=== PATIENT | female | born 1955 | race Caucasian/White ===

== ENCOUNTER → 2016-11-25 | Outpatient (CLI) | payer BC ==
[2016-11-25 17:13] LABS: Basophils % (A) 0 %; CH 30.5; CHCM 33.9; Eosinophils # (A) 0.1 k/uL (0-0.7); Eosinophils % (A) 1 %; HDW 2.91; HGB 13.2 gm/dL (11.4-16.0); Luc # (Auto) 0.19; Luc % (Auto) 3; Lymphocytes # (A) 2.2 k/uL (1.0-4.8); Lymphocytes % (A) 38 %; MCH 29.8 pg (25.0-35.0); MCV 90.4 fL (80.0-100.0); Mean Platelet Volume 7.5; Monocytes # (A) 0.3 k/uL (0-1.0); Monocytes % (A) 6 %; Neutrophils # (A) 3.1 k/uL (1.3-7.7); Neutrophils % (A) 52 %; RBC 4.42 m/uL (3.80-5.40); RDW 13.3 % (11.5-15.5); WBC 5.9 k/uL (3.8-10.6); WBC (Perox) 6.37
[2016-11-25 17:32] LABS: Potassium 4.4 mmol/L (3.5-5.1)
== END | disposition home or self-care (01) ==
LOC: LABWHC1 16:52
PROVIDERS: ATTEND Orthopaedic Surgery
DX: Z01.812 Encounter for preprocedural laboratory examination (principal); M23.91 Unspecified internal derangement of right knee
CPT/HCPCS: 36415; 80051; 85025

== ENCOUNTER 2016-12-04 08:28 | Day surgery (SDC) | payer BC ==
[2016-11-30 15:14] VITALS: BMI 35.2
--- NOTE | 2016-12-03 13:03 | HP ---
DATE OF ADMISSION: CHIEF COMPLAINT: Right knee pain. 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 She notes swelling, popping, and giving way. She is having night symptoms. She did taken medications with only partial temporary relief. PAST MEDICAL HISTORY: Significant for reflux disease, hypertension. PAST SURGICAL HISTORY: Significant for previous knee surgery, breast surgery, hysterectomy and colon surgery. CURRENT MEDICATIONS: 1. Atenolol. 2. Lisinopril. 3. Prilosec. 4. Simvastatin. 5. Tylenol. 6. Tamoxifen. She notes allergies to IODINE DYE. FAMILY HISTORY: Significant for heart disease and cancer. SOCIAL HISTORY: Significant for previous tobacco use; however, she quit in 1996. A 16-point review of systems otherwise reviewed and is noncontributory. On examination, the patient is approximately 5 foot 4, 204 pounds of endomorphic habitus. HEENT exam is nonfocal. Neck is supple. She has painless passive motion of her right hip. Straight leg raise is negative. Active motion of the right knee, -10 to 110 degrees of flexion. She has a large effusion. She is tender about the medial joint line. Collaterals are stable, Petar is negative, Elliott's elicits medial pain. Her distal neurovascular exam appears be intact in the right lower extremity. MRI for the right knee from 07/14/2016 shows a posterior medial meniscal tear in addition to questionable lateral meniscal body tear. IMPRESSION: 1. Right knee internal derangement with symptomatic medial meniscal tear. 2. Increased body mass index. RECOMMENDATIONS: I talked to the patient at length regarding her treatment options. She is having significant pain and mechanical symptoms that limit her. After thorough discussion, she opts to proceed with surgery. We will plan to proceed with arthroscopic evaluation with possible partial medial and lateral meniscectomy. We will likely perform that as an outpatient procedure. Risks and benefits are discussed at length in layman's terms.
[~2016-12-04 08:28] MED LIST: DEXAMETHASONE SOD PHOSPHATE 10 MG/ML 1 ML VIAL IV ONE; LACTATED RINGERS 1,000 ML IV SCH; MIDAZOLAM 2 MG/2 ML VIAL IV PRN; ONDANSETRON 4 MG/2 ML VIAL IVP ONE; SCOPOLAMINE 1.5MG/72HR PATCH TRANSDERM ONE; ceFAZolin 2 GM in SODIUM CHLORIDE 0.9% 100 ML IVPB ONE
[2016-12-04] MEDS ORDERED: MIDAZOLAM 2 MG/2 ML VIAL ONE (10:01)
[2016-12-04] MEDS ORDERED: fentaNYL (PF) 50 MCG/ML 2 ML AMP ONE (10:01)
[2016-12-04] MEDS ORDERED: LACTATED RINGERS 1,000 ML IV ONE (10:01)
[2016-12-04] MEDS ORDERED: GLYCOPYRROLATE 0.2 MG/ML 2 ML VIAL ONE (10:01)
[2016-12-04] MEDS ORDERED: ROCURONIUM BROMIDE 10 MG/ML 10 ML VIAL IV ONE (10:01)
[2016-12-04] MEDS ORDERED: SUCCINYLCHOLINE CHLORIDE 100 MG/5 ML SYR IV ONE (10:01)
[2016-12-04] MEDS ORDERED: NEOSTIGMINE 1 MG/ML 10 ML VIAL ONE (10:01)
[2016-12-04] MEDS ORDERED: LIDOCAINE 1% INJ 10MG/ML (20 ML MDV) ONE (10:01)
[2016-12-04] MEDS ORDERED: PROPOFOL 10 MG/ML 20 ML VIAL IV ONE (10:01)
--- NOTE | 2016-12-04 10:49 | P.OP ---
Date of Procedure: 12/04/16 Preoperative Diagnosis: Right knee internal derangement Postoperative Diagnosis: Right knee posterior medial meniscal tear/middle one third lateral meniscal tear /grade 3 chondral injury distal lateral portion lateral femoral condyle/grade 3 chondral injury inferior patellar pole Procedure(s) Performed: Right knee arthroscopic partial medial meniscectomy/partial lateral meniscectomy /lateral femoral chondrectomy/patellar chondroplasty Anesthesia: ARACELIS Surgeon: Augustine Arcos Estimated Blood Loss (ml): 10 Pathology: none sent Condition: stable Disposition: PACU Indications for Procedure: The patient's a 61-year-old female who presents with progressive right knee pain and mechanical symptoms despite conservative measures. A discussion of the risks and benefits of operative intervention versus continued conservative measures was made with patient. She opted to proceed with surgery. Operative risks to include infection, neurovascular injury, development of blood clots, possible incomplete resolution of symptoms, possible worsening symptoms and need for subsequent procedures was discussed. Informed consent was obtained. Operative Findings: As below Description of Procedure: The patient was brought to the operating room and after induction of general anesthesia, I examined the right knee. Collaterals were stable, Petar was negative, and posterior drawer was negative. The right lower extremity was prepped and draped in normal fashion. A superior lateral portal was made through a 3 mm skin incision superior and lateral to the patella. This was used for outflow. A moderate effusion was encountered. A lateral portal was made through a 5 mm vertical skin incision lateral to the patellar tendon above the joint line. Diagnostic arthroscopy was performed. A medial portal was made through a similar incision medial to the patellar tendon above the joint line. On inspection the medial compartment, she was noted have an oblique tear involving the posterior most aspect of the medial meniscus in the white-white junction. This was debrided back to stable base with straight baskets. The edges were contoured. The remaining medial meniscus was stable and intact. Minimal degenerative changes involving medial compartment were noted. On inspection of the notch, the anterior cruciate ligament appeared to be intact. On inspection of the lateral compartment, a radial tear involving the middle one third of the lateral meniscus in the white-white junction. This was debrided back to stable base with straight baskets. The edges were contoured. A grade 3 chondral injury involving the distal lateral portion of the lateral femoral condyle was noted. This measured approximately 5 x 6 mm. There was a loose chondral flap was debrided back to stable base with a motorized shaver. On inspection of the patellofemoral articulation, there was a grade 3 chondral injury involving the inferior pole. There was a loose chondral flap debrided back to stable base with a motorized shaver. The gutters were clear debris. The knee was then thoroughly irrigated. The portals were closed with Steri- Strips. A sterile dressing was applied in addition to a compression stocking. The patient was awoken from general anesthesia and transferred to recovery room in good condition. Blood loss was estimated at 10 mL. No complications were incurred.
[2016-12-04 10:53] VITALS: TEMP 97
[2016-12-04] MEDS: HYDROmorphone 1 MG/ML 1 ML SYRINGE IVP PRN ×4 (10:55→11:15)
[2016-12-04] MEDS ORDERED: KETOROLAC 30 MG/ML 1 ML VIAL IVP ONE (11:09)
[2016-12-04] MEDS ORDERED: HYDROcodone/APAP 5-325MG 1 EACH TAB PO ONE (12:14)
[2016-12-04 13:00] VITALS: RESP 16
[2016-12-04 13:01] VITALS: BP 111/60; PULSE 83
== END 2016-12-04 13:29 | disposition home or self-care (01) ==
LOC: OR 08:28
PROVIDERS: ATTEND Orthopaedic Surgery
DX: S83.281A Other tear of lateral meniscus, current injury, right knee, initial encounter (principal); S83.241A Other tear of medial meniscus, current injury, right knee, initial encounter; M94.8X6 Other specified disorders of cartilage, lower leg; K21.9 Gastro-esophageal reflux disease without esophagitis; I10 Essential (primary) hypertension; Z91.041 Radiographic dye allergy status; Z85.3 Personal history of malignant neoplasm of breast; Z87.891 Personal history of nicotine dependence; X58.XXXA Exposure to other specified factors, initial encounter; Z79.899 Other long term (current) drug therapy
CPT/HCPCS: 29880; J2250; J1100; J2710; J0690; J2405; J2001; J3010; J1885; J1170; J0330; J2704

== ENCOUNTER → 2017-04-23 | Day surgery (SDC) | payer BC ==
[2017-04-21 14:25] VITALS: BMI 34.8
[~2017-04-23] MED LIST changes: -DEXAMETHASONE SOD PHOSPHATE 10 MG/ML 1 ML VIAL IV ONE; +LIDOCAINE 1% 20 ML VIAL (10MG/ML) FOR IV START INTRADERMA PRN; +LIDOCAINE 1% INJ 10MG/ML (20 ML MDV) ONE; -MIDAZOLAM 2 MG/2 ML VIAL IV PRN; -ONDANSETRON 4 MG/2 ML VIAL IVP ONE; +PROPOFOL 10 MG/ML 20 ML VIAL IV ONE; -SCOPOLAMINE 1.5MG/72HR PATCH TRANSDERM ONE; -ceFAZolin 2 GM in SODIUM CHLORIDE 0.9% 100 ML IVPB ONE
[2017-04-23 09:19] VITALS: RESP 16; TEMP 98.2
--- NOTE | 2017-04-23 11:09 | P.GSHP ---
History of Present Illness H&P Date: 04/23/17 Chief Complaint: GERD, screening colonoscopy This a 7-year-old female who presents today for EGD and screening colonoscopy. Patient has had long-standing problems reflux esophagitis. She has a known history of a hiatal hernia. - Constitutional Constitutional: Reports as per HPI Past Medical History Past Medical History: Cancer, GERD/Reflux, Hyperlipidemia, Hypertension, Musculoskeletal Disorder, Sleep Apnea/CPAP/BIPAP Additional Past Medical History / Comment(s): Colon, Breast CA, Lumpectomy Lt Breast. RT kidney NON-FUNCTIONING. NO TX FOR SLEEP APNEA. SMALL BUMP FROM OLD TICK BITE RT HAND 1 MO AGO. History of Any Multi-Drug Resistant Organisms: None Reported Past Surgical History: Breast Surgery, Hysterectomy, Orthopedic Surgery Additional Past Surgical History / Comment(s): LT Lumpectomy. RT KNEE SCOPE. COLONOSCOPY, EGD. Past Anesthesia/Blood Transfusion Reactions: Motion Sickness Past Psychological History: No Psychological Hx Reported Smoking Status: Former smoker Past Alcohol Use History: None Reported Additional Past Alcohol Use History / Comment(s): SMOKED 20 YEARS, < 1 PPD, QUIT 1996. Past Drug Use History: None Reported - Past Family History Sister(s) Family Medical History: Cancer Brother(s) Family Medical History: Cancer Father Family Medical History: Coronary Artery Disease (CAD), CVA/TIA Medications and Allergies Home Medications Medication Instructions Recorded Confirmed Type Atenolol 50 mg PO HS 10/17/16 04/23/17 History Pantoprazole Sodium [Protonix] 40 mg PO HS 10/17/16 04/23/17 History Simvastatin 20 mg PO HS 10/17/16 04/23/17 History Tamoxifen [Nolvadex] 20 mg PO HS 10/17/16 04/23/17 History Calcium Carbonate/Vitamin D3 1 each PO 1200 11/30/16 04/23/17 History [Calcium 600-Vit D3 400 Caplet] Lisinopril [Zestril] 10 mg PO HS 11/30/16 04/23/17 History Acetaminophen-Codeine 300-30mg 1 tab PO Q6H PRN 04/21/17 04/23/17 History [Tylenol #3] Ibuprofen [Motrin] 600 mg PO Q6HR PRN 04/21/17 04/23/17 History Allergies Allergy/AdvReac Type Severity Reaction Status Date / Time adhesive tape Allergy Skin Verified 04/23/17 09:05 Irritation, BLISTERED SKIN Iodinated Contrast Media - Allergy Rash/Hives Verified 04/23/17 09:05 Oral and [Iodinated Contrast Media - IV Dye] zolpidem [From Ambien] Allergy Unknown Verified 04/23/17 09:05 Penicillins AdvReac Abdominal Verified 04/23/17 09:05 Pain, NAUSEA Surgical - Exam Vital Signs Temp Pulse Resp BP Pulse Ox 98.2 F 86 16 122/65 98 04/23/17 09:19 04/23/17 09:19 04/23/17 09:19 04/23/17 09:19 04/23/17 09:19 - General well developed, no distress - Eyes PERRL - ENT normal pinna, normal nares - Neck no masses - Respiratory normal expansion - Cardiovascular Rhythm: regular - Abdomen Abdomen: soft, non tender Assessment and Plan Plan: GERD. We'll perform EGD and screening colonoscopy.
--- NOTE | 2017-04-23 11:25 | P.OP ---
Date of Procedure: 04/23/17 Preoperative Diagnosis: GERD Screening colonoscopy Postoperative Diagnosis: Mild antral gastritis Small hiatal hernia Mild esophagitis Diverticulosis of sigmoid and left colon Procedure(s) Performed: EGD Colonoscopy Implants: Anesthesia: MAC Pathology: other (Bhesania antrum, esophagus) Condition: stable Disposition: PACU Indications for Procedure: Operative Findings: Description of Procedure: The patient's placed on the endoscopy table in the lateral position. She received IV sedation. Digital rectal exam was performed which revealed a few external hemorrhoids. The flexible colonoscope was then placed patient anus passed throughout the entire colon. The ileocecal valve was visualized. The cecum, ascending and transverse colon appeared normal. In the descending and; was mild diverticular changes. The scope was then brought back the rectum and this appeared normal. Scope was withdrawn for patient. Next the gastroscope was oropharynx and then the scope was placed into the esophagus and stomach. Scope was removed pylorus. The first and second portion of the duodenum appeared normal. Scope was then brought back the antrum and this appeared mildly inflamed. A biopsies performed. Scope was unretroflexed and remainder stomach appeared normal. There was a small hiatal hernia. The GE junction was at 40 cm. The distal esophagus was minimal inflamed and a biopsies performed. The proximal esophagus appeared normal. Scope was withdrawn for patient.
[2017-04-23 12:29] VITALS: BP 160/70; PULSE 78
--- NOTE | 2017-04-23 17:15 | NM ---
EXAMINATION TYPE: NM hepatobiliary w EF DATE OF EXAM: 04/23/2017 COMPARISON: NONE HISTORY: TECHNIQUE: After the intravenous administration of 5.46 mCi Tc 99m Mebrofenin hepatobiliary scintigra phy is performed. Immediate images post injection. FINDINGS: After intravenous injection with the tracer there is prompt uptake of the tracer by the liver that hill s normal contour. There are no focal defects. There is tracer in the gallbladder at 15 minutes which excludes obstruction of the cystic duct. There is tracer in the small bowel at 22 minutes which exclu rosetta obstruction of the common bile duct. Tracers mostly cleared from the liver at one hour. The post ensure images show a gallbladder ejection fraction of 58% which is normal. IMPRESSION: Normal hepatobiliary scan. Normal gallbladder ejection fraction with the stimulation. The liver shows a prominent left lobe that raises the possibility of hepatomegaly and should be correlat ed with the physical exam.
== END ==
LOC: ORWHC2ENDO 08:54
PROVIDERS: ATTEND Surgery
DX: Z12.11 Encounter for screening for malignant neoplasm of colon (principal); K21.0 Gastro-esophageal reflux disease with esophagitis; K57.30 Diverticulosis of large intestine without perforation or abscess without bleeding; K29.50 Unspecified chronic gastritis without bleeding; I10 Essential (primary) hypertension; E78.5 Hyperlipidemia, unspecified; G47.33 Obstructive sleep apnea (adult) (pediatric); K64.4 Residual hemorrhoidal skin tags; K44.9 Diaphragmatic hernia without obstruction or gangrene; Z88.0 Allergy status to penicillin; Z91.041 Radiographic dye allergy status; Z88.8 Allergy status to other drugs, medicaments and biological substances; Z79.899 Other long term (current) drug therapy; Z87.891 Personal history of nicotine dependence
CPT/HCPCS: 88305; 88342; 78226; 43239; A9537; J2001; J2704; G0121

== ENCOUNTER 2017-05-14 08:14 | Inpatient (IN) | payer BC ==
[2017-05-06 09:01] VITALS: BMI 35.0
[~2017-05-14 08:14] MED LIST changes: +DEXAMETHASONE SOD PHOSPHATE 10 MG/ML 1 ML VIAL IV ONE; +HEPARIN SODIUM,PORCINE 5,000 UNIT/ML 1 ML VIAL SQ ONE; -LIDOCAINE 1% 20 ML VIAL (10MG/ML) FOR IV START INTRADERMA PRN; -LIDOCAINE 1% INJ 10MG/ML (20 ML MDV) ONE; +MIDAZOLAM 2 MG/2 ML VIAL IV PRN; +ONDANSETRON 4 MG/2 ML VIAL IVP ONE; -PROPOFOL 10 MG/ML 20 ML VIAL IV ONE; +SCOPOLAMINE 1.5MG/72HR PATCH TRANSDERM ONE; +ceFAZolin 2 GM in SODIUM CHLORIDE 0.9% 100 ML IVPB ONE
--- NOTE | 2017-05-14 08:58 | P.GSHP ---
History of Present Illness H&P Date: 05/14/17 Chief Complaint: GERD This is a 62-year-old female referred from Dr. Jane. The patient has had long- standing problems with reflux esophagitis. The patient underwent recent EGD is found have evidence of esophagitis. Patient has been well informed on the procedure of laparoscopic Jorje fundoplication. The patient is aware the risk of the conversion to the open procedure, risk of injury to the stomach, liver and spleen. The patient is also a risk of recurrent GERD and dysphagia symptoms. The patient understands there is a postoperative diet of full liquids for 2 weeks after surgery. - Constitutional Constitutional: Reports as per HPI Past Medical History Past Medical History: Cancer, GERD/Reflux, Hyperlipidemia, Hypertension, Musculoskeletal Disorder, Sleep Apnea/CPAP/BIPAP Additional Past Medical History / Comment(s): Colon, Breast CA, Lumpectomy Lt Breast. RT kidney NON-FUNCTIONING. NO TX FOR SLEEP APNEA. History of Any Multi-Drug Resistant Organisms: None Reported Past Surgical History: Breast Surgery, Hysterectomy, Orthopedic Surgery Additional Past Surgical History / Comment(s): LT Lumpectomy. RT KNEE SCOPE. COLONOSCOPY, EGD. Past Anesthesia/Blood Transfusion Reactions: Motion Sickness Smoking Status: Former smoker - Past Family History Brother(s) Family Medical History: Cancer Sister(s) Family Medical History: Cancer Father Family Medical History: Coronary Artery Disease (CAD), CVA/TIA Medications and Allergies Home Medications Medication Instructions Recorded Confirmed Type Atenolol 50 mg PO HS 10/17/16 05/06/17 History Pantoprazole Sodium [Protonix] 40 mg PO HS 10/17/16 05/06/17 History Simvastatin 20 mg PO HS 10/17/16 05/06/17 History Tamoxifen [Nolvadex] 20 mg PO HS 10/17/16 05/06/17 History Calcium Carbonate/Vitamin D3 1 each PO 1200 11/30/16 05/06/17 History [Calcium 600-Vit D3 400 Caplet] Lisinopril [Zestril] 10 mg PO HS 11/30/16 05/06/17 History Acetaminophen-Codeine 300-30mg 1 tab PO Q6H PRN 04/21/17 05/06/17 History [Tylenol #3] Allergies Allergy/AdvReac Type Severity Reaction Status Date / Time adhesive tape Allergy Skin Verified 05/14/17 08:18 Irritation, BLISTERED SKIN Iodinated Contrast Media - Allergy Rash/Hives Verified 05/14/17 08:18 Oral and [Iodinated Contrast Media - IV Dye] zolpidem [From Ambien] Allergy Unknown Verified 05/14/17 08:18 Penicillins AdvReac Abdominal Verified 05/14/17 08:18 Pain, NAUSEA Surgical - Exam Vital Signs Temp Pulse Resp BP 99.5 F 88 15 157/78 05/14/17 08:23 05/14/17 08:23 05/14/17 08:23 05/14/17 08:23 - General well developed, no distress - Eyes PERRL - ENT normal pinna - Neck no masses - Respiratory normal expansion - Cardiovascular Rhythm: regular - Abdomen Abdomen: soft, non tender Assessment and Plan Plan: GERD. We'll perform laparoscopic Jorje fundoplication.
[2017-05-14] MEDS ORDERED: PROPOFOL 10 MG/ML 20 ML VIAL IV ONE (09:14)
[2017-05-14] MEDS ORDERED: SUCCINYLCHOLINE CHLORIDE 100 MG/5 ML SYR IV ONE (09:14)
[2017-05-14] MEDS ORDERED: fentaNYL (PF) 50 MCG/ML 2 ML AMP ONE (09:14)
[2017-05-14] MEDS ORDERED: NEOSTIGMINE 1 MG/ML 10 ML VIAL ONE (09:14)
[2017-05-14] MEDS ORDERED: diphenhydrAMINE 50 MG/ML 1 ML VIAL ONE (09:14)
[2017-05-14] MEDS ORDERED: ePHEDrine 50 MG/ML 1 ML AMP ONE (09:14)
[2017-05-14] MEDS ORDERED: ROCURONIUM BROMIDE 10 MG/ML 10 ML VIAL IV ONE (09:14)
[2017-05-14] MEDS ORDERED: MIDAZOLAM 2 MG/2 ML VIAL ONE (09:14)
[2017-05-14] MEDS ORDERED: LIDOCAINE 1% INJ 10MG/ML (20 ML MDV) ONE (09:14)
[2017-05-14] MEDS ORDERED: LABETALOL 5 MG/ML VIAL MDV ONE (09:14)
[2017-05-14] MEDS ORDERED: KETOROLAC 30 MG/ML 1 ML VIAL ONE (09:14)
[2017-05-14] MEDS ORDERED: GLYCOPYRROLATE 0.2 MG/ML 2 ML VIAL ONE (09:14)
[2017-05-14] MEDS ORDERED: BUPIVACAIN-EPI 0.5%-1:200,000 30 ML VIAL SQ ONE (09:47)
[2017-05-14] MEDS ORDERED: LACTATED RINGERS 1,000 ML IV ONE (10:01)
--- NOTE | 2017-05-14 10:29 | P.OP ---
Date of Procedure: 05/14/17 Preoperative Diagnosis: GERD Postoperative Diagnosis: GERD Procedure(s) Performed: Laparoscopic Jorje fundal plication with 180 wrap Implants: Anesthesia: ARACELIS Surgeon: Bari Marcos Estimated Blood Loss (ml): 20 Pathology: none sent Condition: stable Disposition: PACU Indications for Procedure: Operative Findings: Description of Procedure: The patient's placed the operative table in the supine position. She received general anesthesia. She was then placed in dorsal 5 position. Her abdomen was prepped and draped usual fashion. The skin incision sites were anesthetized 1% local Xylocaine. And then using a 11 blade the skin the size and left periumbilical area and then using an optical trocar the peritoneal cavity is entered under direct visualization and then the peritoneal cavity was insufflated with CO2. After adequate insufflation the laparoscope was placed back in the cavity. The patient had a very very large liver. The liver extended almost all the way to the umbilicus. A 5 mm trochars placed in the right right epigastric area. In the left lateral lobe liver was retracted. The liver was massive. At this point a 5 mm trocar was placed in the right lateral position and another 5 mm trochars placed in the left lateral position and then another 5 mm trocar is placed in the left epigastric position. The liver retractor was adjusted. The liver was very large and covered part of the hiatus. At this point using the Harmonic scissors the hiatus was dissected. There was a minimal hiatal hernia defect. The defect was closed with 2-0 Ethibond suture. And a timeout device. Dissection was further carried onto the greater curvature stomach and this was mobilized. And then a window was made in the retro-esophageal area and the stomach was brought around the esophagus. A 180 wrap was performed using 2-0 Ethibond suture. There was no injury to the stomach or esophagus seen. At this point the abdomen was irrigated. Several bleeding seen. The trochars withdrawn. The skin was closed interrupted 3-0 Monocryl suture. Dermabond was applied. Patient was sent to recovery in stable condition.
[2017-05-14] MEDS: HYDROmorphone 1 MG/ML 1 ML SYRINGE IVP PRN ×8 (10:45→21:47)
[2017-05-14] MEDS ORDERED: ONDANSETRON 4 MG/2 ML VIAL IVP ONE (10:55)
[2017-05-14] MEDS: D5-0.45% NACL WITH KCL 20MEQ/L 1,000 ML IV SCH ×2 (13:40→21:48)
[2017-05-14] MEDS ORDERED: ONDANSETRON 4 MG/2 ML VIAL IVP PRN (14:22)
[2017-05-14] MEDS ORDERED: ONDANSETRON 4 MG TAB PO PRN (14:51)
--- NOTE | 2017-05-14 15:12 | FL ---
EXAMINATION TYPE: FL UGI w esophagus DATE OF EXAM: 05/14/2017 COMPARISON: NONE HISTORY: Status post Salo fundoplication TECHNIQUE: A single contrast UGI study is performed. FINDINGS: Oral contrast the ascending fundoplication appears normal. There is some moderate hesitancy without persistent stenosis No free air is noted during this examination. Overhead radiographs were obtained which are unremarkable. IMPRESSIONS: 1. Normal postsurgical descending fundoplication.
[2017-05-15] MEDS: HYDROmorphone 1 MG/ML 1 ML SYRINGE IVP PRN ×3 (01:58→10:24)
[2017-05-15] MEDS: D5-0.45% NACL WITH KCL 20MEQ/L 1,000 ML IV SCH (03:51)
[2017-05-15] MEDS ORDERED: ENOXAPARIN 40 MG/0.4 ML SYRINGE SQ SCH (09:00)
--- NOTE | 2017-05-15 12:20 | P.PN ---
Subjective Principal diagnosis: Postoperative day 1 laparoscopic Jorje The patient is doing fairly well. She's tolerating a diet. She has not taken any oral pain medication yet, nothing was ordered. Objective - Vital Signs Vital signs: Vital Signs Temp 98.8 F 05/15/17 07:00 Pulse 86 05/15/17 07:00 Resp 16 05/15/17 07:00 BP 139/64 05/15/17 07:00 Pulse Ox 95 05/15/17 07:00 Intake & Output 05/14/17 05/15/17 05/15/17 18:59 06:59 18:59 Intake Total 1450 200 Output Total 410 Balance 1040 200 Weight 92.533 kg 92.533 kg Intake: IV 1450 Oral 200 Output: Urine 400 Estimated Blood Loss 10 Other: # Voids 1 1 2 - Constitutional General appearance: Present: cooperative, no acute distress - Gastrointestinal General gastrointestinal: Present: normal bowel sounds, soft Localized gastrointestinal: surgical scar: diffuse (Incisions with mild ecchymosis no cellulitis) Assessment and Plan Plan: We will start the patient on some oral pain medication. If she is able to tolerate that and drinking well she would likely be able to be discharged later this afternoon. Progressing well.
[2017-05-15 12:21] VITALS: BP 130/54; PULSE 84; RESP 20; TEMP 98.4
[2017-05-15] MEDS ORDERED: HYDROcodone/APAP 7.5-325MG 1 EACH TAB PO PRN (14:03)
--- NOTE | 2017-05-16 11:31 | P.DS ---
Providers Date of admission: 05/14/17 08:14 Expected date of discharge: 05/15/17 Attending physician: Bari Marcos Consults: 05/14/17 10:29 Consult Physician Routine Consulting Provider: Giles Jane Reason/Comments: Medical management Do you want consulting provider notified?: Yes Primary care physician: Giles Jane [facility] Course: The patient presented for laparoscopic Jorje fundoplication. Her upper GI was unremarkable. She was quickly advanced on her activity and diet. By the afternoon of postoperative day 1 she was felt to be stable for discharge Patient Condition at Discharge: Good Plan - Discharge Summary New Discharge Prescriptions: New HYDROcodone/APAP 7.5-325MG [[place] 7.5-325] 1 tab PO Q6HR PRN #30 tab PRN Reason: Pain No Action Tamoxifen [Nolvadex] 20 mg PO HS Simvastatin 20 mg PO HS Pantoprazole Sodium [Protonix] 40 mg PO HS Atenolol 50 mg PO HS Lisinopril [Zestril] 10 mg PO HS Calcium Carbonate/Vitamin D3 [Calcium 600-Vit D3 400 Caplet] 1 tab PO DAILY@ 1200 Acetaminophen-Codeine 300-30mg [Tylenol #3] 1 tab PO Q6H PRN PRN Reason: Pain Discharge Medication List Atenolol 50 mg PO HS 10/17/16 [History] Pantoprazole Sodium [Protonix] 40 mg PO HS 10/17/16 [History] Simvastatin 20 mg PO HS 10/17/16 [History] Tamoxifen [Nolvadex] 20 mg PO HS 10/17/16 [History] Calcium Carbonate/Vitamin D3 [Calcium 600-Vit D3 400 Caplet] 1 tab PO DAILY@ 1200 11/30/16 [History] Lisinopril [Zestril] 10 mg PO HS 11/30/16 [History] Acetaminophen-Codeine 300-30mg [Tylenol #3] 1 tab PO Q6H PRN 04/21/17 [History] HYDROcodone/APAP 7.5-325MG [[place] 7.5-325] 1 tab PO Q6HR PRN #30 tab 05/15/17 [ Rx] Follow up Appointment(s)/Referral(s): Bari Marcos MD [STAFF PHYSICIAN] - 10 Days Patient Instructions/Handouts: *Surgery [facility] - ([facility]) Lap Jorje Fundiplication Post-Op Instructions, Adult Laparoscopic Jorje Fundoplication ( DC) Activity/Diet/Wound Care/Special Instructions: follow the diet instructions and restrictions as educated by the dental appliance repairer. Please call on Wednesday to make your follow-up appointment with Dr Marcos. See him in 10 days to two weeks. Make sure you take in plenty of fluid. Take your pain medicine as needed. You may shower tonight but no tub baths or going underwater. No heavy lifting. Keep the weight to about the size and weight of a gallon of milk. Report any fever, increased pain or difficulty swallowing to the oncall surgeon or return to ER. Discharge Disposition: HOME SELF-CARE
--- NOTE | 2017-05-20 08:23 | PN ---
This 62-year-old woman who was admitted after Jorje fundoplication, improved significantly. No chest pain or palpitation. No fever. On exam, alert and oriented x3. Pulse is 86. Blood pressure is 139/64, respirations 16, temperature 98.8, pulse ox 95% on room air. HEENT: Conjunctivae normal. NECK: No jugular venous distention. CARDIOVASCULAR: S1 and S2 muffled. RESPIRATORY: Breath sounds diminished at the bases. No rhonchi. No crackles. ABDOMEN: Soft. Status post ( ). LEGS: No edema, no swelling. NERVOUS SYSTEM: No focal deficits. Labs are noted. ASSESSMENT: 1. Status post laparoscopic Jorje fundoplication. 2. Essential hypertension. 3. Hyperlipidemia. 4. Degenerative joint disease. 5. History of colon and breast cancer. RECOMMENDATIONS AND DISCUSSION: Recommend to continue current medications. I recommend to resume the home medications. Closely follow with Dr. Jane in the outpatient setting. Further recommendations to follow. DRED
--- NOTE | 2017-05-20 08:29 | PN ---
DATE OF SERVICE: 05/14/2017 I am covering for Dr. Jane. The reason for consultation is advice regarding hypertension, hyperlipidemia, other medical issues ( ). HISTORY OF PRESENT ILLNESS: This 62-year-old woman with the past medical history of hypertension, hyperlipidemia, history of DJD, history of colon and breast cancer being followed by Dr. Jane in the outpatient setting, underwent Jorje fundoplication by Dr. Marcos. The patient is being closely monitored. There is no history of fever, chills or rigors. No history of weight loss or conscious seizures. No chest pain, no palpitation. PAST MEDICAL HISTORY: History of GERD, hypertension, hyperlipidemia, musculoskeletal disorder, colon cancer and breast cancer. The home medications are Nolvadex, simvastatin, Protonix, Zestril, calcium with vitamin D, Atenolol, hydrocodone. Allergies are ADHESIVE TAPE, AMBIEN, IODINATED CONTRAST, PENICILLIN. FAMILY HISTORY: No history of heart disease or strokes in the family. Family history of cancer. SOCIAL HISTORY: Previous history of smoking. REVIEW OF SYSTEMS: ENT: No diminished hearing, no diminished vision. CARDIOVASCULAR: No angina, palpitations. RESPIRATORY: No cough. GI: As mentioned earlier. : No dysuria. NERVOUS SYSTEM: No numbness or weakness. ALLERGY/IMMUNOLOGY: No asthma or hayfever. MUSCULOSKELETAL: As mentioned earlier. HEMATOLOGY: No history of anemia. ENDOCRINE: No history of diabetes or hypothyroidism. CONSTITUTIONAL: As mentioned earlier. DERMATOLOGY: Negative. RHEUMATOLOGY: Negative. PSYCHIATRY: As mentioned earlier. PHYSICAL EXAM: Patient is alert and oriented x3. The pulse is 86, blood pressure 128/66, respirations 16, temperature 98.4, pulse ox 98% on 2 L. HEENT: Conjunctivae normal. NECK: No jugular venous distension. CARDIOVASCULAR: S1, S2, muffled. RESPIRATORY: Breath sounds diminished at the bases. A few scattered rhonchi. ABDOMEN: Soft, status post surgery. LEGS: No edema, no swelling. NERVOUS SYSTEM: No focal deficits. Labs at this time are reviewed. ASSESSMENT: 1. Status post laparoscopic Jorje Fundoplication. 2. History of hypertension. 3. Hyperlipidemia. 4. Gastroesophageal reflux disease. 5. History of musculoskeletal disorder. 6. Colon and breast cancer. RECOMMENDATION: Recommend to continue current medication and symptomatic treatment, incentive spirometry. Resume the home medication. Monitor blood pressure closely. Further recommendations to follow. MTDD
== END 2017-05-15 16:08 | disposition home or self-care (01) | DRG 328 ==
LOC: 2ORWHC 08:14 → 6PED 10:24
PROVIDERS: ADMIT Family Medicine; ATTEND Surgery
PROC: 0BQR4ZZ (ICD-10-PCS; 2017-05-14)
PROC: 0DV44ZZ Restriction of Esophagogastric Junction, Percutaneous Endoscopic Approach (ICD-10-PCS; principal; 2017-05-14 09:15)
DX: K21.0 Gastro-esophageal reflux disease with esophagitis (principal); I10 Essential (primary) hypertension; E78.5 Hyperlipidemia, unspecified; K44.9 Diaphragmatic hernia without obstruction or gangrene; Z85.3 Personal history of malignant neoplasm of breast; G47.30 Sleep apnea, unspecified; Z90.710 Acquired absence of both cervix and uterus; Z87.891 Personal history of nicotine dependence; Z79.810 Long term (current) use of selective estrogen receptor modulators (SERMs); Z79.899 Other long term (current) drug therapy
CPT/HCPCS: 74240; 93005

== ENCOUNTER → 2018-03-09 | Outpatient (CLI) | payer BC ==
--- NOTE | 2018-03-14 07:50 | MM ---
Reason for exam: additional evaluation requested from prior study. Last mammogram was performed 1 year and 7 months ago. History: Patient is postmenopausal, has history of breast cancer at age 58, and has history of colon cancer at age 32. Family history of premenopausal breast cancer in sister at age 50. Malignant MG stereo VAD BX LT of the left breast, March 29, 2014. Lumpectomy of the left breast, 2013. Radiation therapy of the left breast, 2013. Implants, 2011. Benign excisional biopsy of the right breast, 2011. Took hormonal contraceptives for 5 years beginning at age 21. Took estrogen for 2 years beginning at age 32. Taking antineoplastic beginning at age 58. Physical Findings: Nurse did not find any significant physical abnormalities on exam. MG Diag Mamm Implants ANAYELI w CAD Bilateral CC and MLO view(s) were taken. Prior study comparison: August 21, 2016, mammogram, performed at [facility]. January 03, 2016, mammogram, performed at [facility]. February 15, 2015, mammogram, performed at [facility]. February 16, 2014, CAD bilateral diagnostic mammogram. November 24, 2010, bilateral diagnostic digital mammog. There are scattered fibroglandular densities. Finding: Architectural distortion in the right breast consistent with known lumpectomy. There is no discrete abnormality. Clips in the left breast from lumpectomy. Right breast subpectoral implant redemonstrated. These results were verbally communicated with the patient and result sheet given to the patient on 03/09/18. ASSESSMENT: Benign, BI-RAD 2 RECOMMENDATION: Follow-up diagnostic mammogram of both breasts in 1 year.
== END | disposition home or self-care (01) ==
LOC: RADMAMWWP 14:46
PROVIDERS: ATTEND Internal Medicine Hematology & Oncology
DX: Z08 Encounter for follow-up examination after completed treatment for malignant neoplasm (principal); Z85.3 Personal history of malignant neoplasm of breast
CPT/HCPCS: 77066

== ENCOUNTER → 2018-12-23 | Outpatient (CLI) | payer BC ==
--- NOTE | 2018-12-23 13:12 | MR ---
EXAMINATION TYPE: MR ankle RT wo con DATE OF EXAM: 12/23/2018 COMPARISON: None HISTORY: Plantar fascial fibromatosis, rt ankle TECHNIQUE: Multiplanar, multisequence images of the right ankle were acquired without intravenous contrast [facility]. FINDINGS: There is no evidence of focal plantar fascial thickening or abnormal signal. A small plantar calcanea l enthesophyte is noted. There is an osteochondral defect with surrounding slight bone marrow edema of the medial talar dome m easuring 1.0 x 0.6 x 1.0 cm. This appears stable at this time. Ankle mortise is congruent. No other a reas of abnormal signal are seen. The tendons of the extensor compartment, lateral compartment, and flexor compartment are intact. Wallace princess there is fluid signal surrounding the flexor hallucis longus and tendon thickening related to ten osynovitis. There is a small tibiotalar joint effusion. The anterior talofibular ligament and posterior talofibular ligament appear intact as does the spring ligament and deltoid ligament. IMPRESSION: 1. 1.0 cm osteochondral defect of the right medial talar dome appearing stable at this time. 2. Small tibiotalar joint effusion. 3. Small plantar heel spur. No MR findings to suggest plantar fibromatosis. 4. Mild flexor hallucis longus tenosynovitis.
== END ==
LOC: RADMRIMAIN 11:12
PROVIDERS: ATTEND Orthopaedic Surgery Foot and Ankle Surgery
DX: M77.31 Calcaneal spur, right foot (principal); M65.879 Other synovitis and tenosynovitis, unspecified ankle and foot; M25.471 Effusion, right ankle

== ENCOUNTER → 2019-03-23 | Outpatient (CLI) | payer BC ==
--- NOTE | 2019-03-23 09:38 | MM ---
Reason for exam: additional evaluation requested from prior study. Last mammogram was performed 1 year ago. History: Patient is postmenopausal, has history of breast cancer at age 58, and has history of colon cancer at age 32. Family history of premenopausal breast cancer in sister at age 50. Malignant MG stereo VAD BX LT of the left breast, March 29, 2014. Lumpectomy of the left breast, 2013. Radiation therapy of the left breast, 2013. Implants, 2011. Benign excisional biopsy of the right breast, 2011. Took hormonal contraceptives for 5 years beginning at age 21. Took estrogen for 2 years beginning at age 32. Taking antineoplastic for 5 years beginning at age 58. Physical Findings: Nurse did not find any significant physical abnormalities on exam. MG Diagnostic Mammo w CAD ANAYELI Bilateral CC, MLO, and XCCL view(s) were taken. ID view(s) were taken of the right breast. Prior study comparison: March 09, 2018, bilateral MG diag mamm implants ANAYELI w CAD. August 21, 2016, mammogram, performed at [facility]. The breast tissue is heterogeneously dense. This may lower the sensitivity of mammography. Finding: Architectural distortion in the left breast consistent with known lumpectomy. There is no discrete abnormality. Right breast implant subpectoral. These results were verbally communicated with the patient and result sheet given to the patient on 03/23/19. ASSESSMENT: Benign, BI-RAD 2 RECOMMENDATION: Follow-up diagnostic mammogram of both breasts in 1 year.
--- NOTE | 2019-03-23 13:56 | US ---
EXAMINATION TYPE: US abdomen complete DATE OF EXAM: 03/23/2019 COMPARISON: CT 2016 CLINICAL HISTORY: R16.0 HEPATOMEGALY. Enlarged liver, history of colon CA, occasional nausea x 2 year s EXAM MEASUREMENTS: Liver Length: 19.3 cm Gallbladder Wall: 0.2 cm CBD: 0.5 cm Spleen: 12.8 cm Right Kidney: 9.2 x 3.7 x 5.6 cm Left Kidney: 11.0 x 6.3 x 5.7 cm Difficult and limited study due to patient body habitus Pancreas: visualized portions wnl, limited by overlying midline bowel gas Liver: enlarged, heterogeneous, attenuating, increased echogenicity, decreased visualization of vess els Gallbladder: wnl Evidence for sonographic Headley's sign: no CBD: visualized portions wnl, limited by overlying bowel gas Spleen: wnl Right Kidney: small in size compared to left kidney, no hydronephrosis or masses seen Left Kidney: no hydronephrosis or masses seen Upper IVC: wnl Abd Aorta: proximal portion wnl, mid and distal portion obscured by overlying midline bowel gas The visualized liver is heterogeneously hyperechoic. Finding felt to reflect diffuse fatty infiltrati on based on CT correlation. Evaluation for focal masses suboptimal due to the heterogeneity. The intr ahepatic portion of the IVC and proximal abdominal aorta are within normal limits. There is no evide nce of cholelithiasis. Common bile duct is unremarkable. The visualized portions of the pancreas ar e homogenous. The spleen is unremarkable. Asymmetric atrophy right kidney is redemonstrated. It is f elt more prominent than represented on ultrasound. No suspicious renal lesions are seen on images sa usha. IMPRESSION: Diffuse fatty infiltration of liver redemonstrated.
== END | disposition home or self-care (01) ==
LOC: RADMAMWWP 07:31
PROVIDERS: ATTEND Internal Medicine Hematology & Oncology
DX: Z08 Encounter for follow-up examination after completed treatment for malignant neoplasm (principal); Z85.3 Personal history of malignant neoplasm of breast; K76.0 Fatty (change of) liver, not elsewhere classified
CPT/HCPCS: 76700; 77066

== ENCOUNTER → 2020-01-19 | Outpatient (CLI) | payer BC ==
--- NOTE | 2020-01-19 08:36 | MR ---
EXAMINATION TYPE: MR lumbar spine wo/w con DATE OF EXAM: 01/19/2020 COMPARISON: None HISTORY: Back pain, Breast CA CONTRAST: 9.5 mL intravenous Gadavist. TECHNIQUE: Multiplanar, multisequence images of the lumbar spine were acquired. FINDINGS: Cord terminates at the L1-2 level L5-S1: Very mild facet hypertrophy is present. On T2-weighted sequences there is some mild increased signal within the posterior inferior disc space could be a small annular tear. Mild disc bulge is pre sent without significant thecal sac contact. Minimal contact us with the right S1 nerve root without displacement or compression. Neural foramen are patent. L4-L5: No significant disc bulge or disc herniation. No spinal canal stenosis. No foraminal stenosi s. Very minimal facet hypertrophy is present L3-L4: No significant disc bulge or disc herniation. No spinal canal stenosis. No foraminal stenosi s. L2-L3: No significant disc bulge or disc herniation. No spinal canal stenosis. No foraminal stenosi s. L1-L2: No significant disc bulge or disc herniation. No spinal canal stenosis. No foraminal stenosi s. T12-L1: No significant disc bulge or disc herniation. No spinal canal stenosis. No foraminal stenos is. No abnormal enhancement. IMPRESSION: 1. Small annular tear with minimal disc bulge L5-S1. No thecal sac contact is evident. Minimal contac t without displacement or compression of the right S1 nerve root may be present.
== END | disposition home or self-care (01) ==
LOC: RADMRIMAIN 07:15
PROVIDERS: ATTEND Internal Medicine Hematology & Oncology
DX: M51.27 Other intervertebral disc displacement, lumbosacral region (principal); D05.12 Intraductal carcinoma in situ of left breast
CPT/HCPCS: 72158; A9585

== ENCOUNTER → 2020-11-11 | Outpatient (CLI) | payer BC ==
--- NOTE | 2020-11-11 12:02 | NM ---
EXAMINATION TYPE: NM hepatobiliary w EF DATE OF EXAM: 11/11/2020 COMPARISON: Prior exam 04/23/2017, ultrasound 03/23/2019 HISTORY: Cholecystitis TECHNIQUE: After the intravenous administration of 4.99 mCi Tc 99m Mebrofenin hepatobiliary scintigra phy is performed. Immediate images post injection. FINDINGS: There is satisfactory initial accumulation of tracer by the liver. The gallbladder is visualized wit hin 48 minutes. The small bowel activity is noted within 24 minutes. At one hour 8 ounces of oral e nsure plus is given to mimic CCK and gallbladder ejection fraction is calculated at 33 %, below the l ower and of normal range. Therefore there is no scintigraphic evidence of cystic or common bile duct obstruction to suggest acute cholecystitis. IMPRESSION: Abnormal low gallbladder ejection fraction
== END | disposition home or self-care (01) ==
LOC: RADNMMAIN 07:15
PROVIDERS: ATTEND Family Medicine
DX: R94.8 Abnormal results of function studies of other organs and systems (principal); K81.9 Cholecystitis, unspecified
CPT/HCPCS: 78226

== ENCOUNTER → 2020-12-20 | Outpatient (CLI) | payer BC | END | disposition home or self-care (01) | LOC: LABPAT 14:29 | PROVIDERS: ATTEND Surgery | DX: Z20.822 Contact with and (suspected) exposure to COVID-19 (principal) | CPT/HCPCS: U0003; C9803 ==

== ENCOUNTER → 2020-12-27 | Day surgery (SDC) | payer BC ==
[2020-12-26 10:04] VITALS: BMI 36.7
[~2020-12-27] MED LIST changes: -DEXAMETHASONE SOD PHOSPHATE 10 MG/ML 1 ML VIAL IV ONE; -HEPARIN SODIUM,PORCINE 5,000 UNIT/ML 1 ML VIAL SQ ONE; +LIDOCAINE 1% (10MG/ML) FOR IV START INTRADERMA PRN; -MIDAZOLAM 2 MG/2 ML VIAL IV PRN; -ONDANSETRON 4 MG/2 ML VIAL IVP ONE; +PROPOFOL 10 MG/ML 20 ML VIAL IV ONE; -SCOPOLAMINE 1.5MG/72HR PATCH TRANSDERM ONE; -ceFAZolin 2 GM in SODIUM CHLORIDE 0.9% 100 ML IVPB ONE
[2020-12-27 09:52] VITALS: TEMP 98.4
--- NOTE | 2020-12-27 10:17 | P.PCN ---
Date of Procedure: 12/27/20 Preoperative Diagnosis: Screening History of colon cancer Postoperative Diagnosis: History of colon cancer Patent and well-healed anastomosis Diverticulosis Procedure(s) Performed: Colonoscopy Anesthesia: MAC Surgeon: Aki Marinelli Pathology: none sent Condition: stable Disposition: same day Indications for Procedure: 65-year-old female presents today for screening colonoscopy. She is known to have a history of colorectal cancer with a history of a right hemicolectomy. Risks, benefits and alternatives were provided to the patient. She did provide consent prior to attending the endoscopy suite. Operative Findings: Patent and well-healed anastomosis Diverticulosis Description of Procedure: The patient was brought into the endoscopy suite. She was then placed in left lateral cutis position and adequate sedation was achieved using conscious sedation. A digital rectal exam was performed and mild internal hemorrhoids were palpated. An endoscope was then placed in the rectum and advanced to the level of the right colectomy anastomosis. The prep was good. The colonoscope was then slowly withdrawn, examining for any mucosal abnormalities. The remaining transverse, descending and sigmoid colon were visualized adequately. There were no large neoplastic lesions noted throughout the colon. There were no obvious polyps noted throughout the colon. There was a mild amount diverticulosis. Retroflexion was performed in the rectum and mild internal hemorrhoids were visible. Excess air was removed, the colonoscope withdrawn and the procedure terminated. The patient was then transferred to recovery in stable condition. Repeat colonoscopy should be performed in 3 years.
[2020-12-27 10:24] VITALS: RESP 17
[2020-12-27 10:46] VITALS: BP 150/67; PULSE 68
== END | disposition home or self-care (01) ==
LOC: ORWHC2ENDO 09:24
PROVIDERS: ATTEND Surgery
DX: K57.31 Diverticulosis of large intestine without perforation or abscess with bleeding (principal); K64.8 Other hemorrhoids; K82.8 Other specified diseases of gallbladder; K21.9 Gastro-esophageal reflux disease without esophagitis; I10 Essential (primary) hypertension; E78.5 Hyperlipidemia, unspecified; I34.1 Nonrheumatic mitral (valve) prolapse; G47.33 Obstructive sleep apnea (adult) (pediatric); Q60.0 Renal agenesis, unilateral; K44.9 Diaphragmatic hernia without obstruction or gangrene; Z85.038 Personal history of other malignant neoplasm of large intestine; Z79.899 Other long term (current) drug therapy; Z90.49 Acquired absence of other specified parts of digestive tract; Z90.710 Acquired absence of both cervix and uterus; Z98.890 Other specified postprocedural states; Z79.890 Hormone replacement therapy; Z79.891 Long term (current) use of opiate analgesic; Z79.52 Long term (current) use of systemic steroids; Z91.048 Other nonmedicinal substance allergy status; Z97.2 Presence of dental prosthetic device (complete) (partial); Z91.041 Radiographic dye allergy status; Z88.8 Allergy status to other drugs, medicaments and biological substances; Z98.0 Intestinal bypass and anastomosis status; Z82.49 Family history of ischemic heart disease and other diseases of the circulatory system; Z82.3 Family history of stroke; Z83.3 Family history of diabetes mellitus; Z82.5 Family history of asthma and other chronic lower respiratory diseases; Z80.1 Family history of malignant neoplasm of trachea, bronchus and lung; Z80.8 Family history of malignant neoplasm of other organs or systems; Z83.1 Family history of other infectious and parasitic diseases
CPT/HCPCS: 45378; J2704

== ENCOUNTER → 2021-01-01 | Outpatient (CLI) | payer BC ==
[2021-01-01 13:33] LABS: Albumin 4.6 g/dL (3.5-5.0); Bilirubin,Unconjugated 0.8 mg/dL (0.0-1.1); Total Bilirubin 0.8 mg/dL (0.2-1.3); Total Protein 7.3 g/dL (6.3-8.2)
== END | disposition home or self-care (01) ==
LOC: LABPAT 12:20
PROVIDERS: ATTEND Surgery
DX: Z01.818 Encounter for other preprocedural examination (principal); K82.8 Other specified diseases of gallbladder
CPT/HCPCS: 36415; 80076; 86850; 86900; 86901

== ENCOUNTER 2021-01-09 10:14 | Inpatient (IN) | payer BC ==
[2021-01-07 11:02] VITALS: BMI 36.7
[~2021-01-09 10:14] MED LIST changes: +DEXAMETHASONE SOD PHOSPHATE 4 MG/ML 1 ML VIAL IV ONE; +HEPARIN SODIUM,PORCINE 5,000 UNIT/ML 1 ML VIAL SQ PRN; -LACTATED RINGERS 1,000 ML IV SCH; +ONDANSETRON 4 MG/2 ML VIAL IVP ONE; -PROPOFOL 10 MG/ML 20 ML VIAL IV ONE; +SCOPOLAMINE 1.5MG/72HR PATCH TRANSDERM ONE
[2021-01-09] MEDS ORDERED: LACTATED RINGERS 1,000 ML IV ONE ×3 (10:47→13:11)
[2021-01-09] MEDS ORDERED: GLYCOPYRROLATE 0.2 MG/ML 2 ML VIAL ONE (11:49)
[2021-01-09] MEDS ORDERED: NEOSTIGMINE 1 MG/ML 10 ML VIAL ONE (11:49)
[2021-01-09] MEDS ORDERED: fentaNYL (PF) 50 MCG/ML 2 ML AMP ONE (11:49)
[2021-01-09] MEDS ORDERED: SUCCINYLCHOLINE CHLORIDE VIAL 200 MG/10 ML VIAL IV ONE (11:49)
[2021-01-09] MEDS ORDERED: diphenhydrAMINE 50 MG/ML 1 ML VIAL ONE (11:49)
[2021-01-09] MEDS ORDERED: MIDAZOLAM 2 MG/2 ML VIAL ONE (11:49)
[2021-01-09] MEDS ORDERED: PROPOFOL 10 MG/ML 20 ML VIAL IV ONE (11:49)
[2021-01-09] MEDS ORDERED: INDOCYANINE GREEN 25 MG VIAL IV ONE (11:49)
[2021-01-09] MEDS ORDERED: HYDROmorphone (PF) 1 MG/ML ONE (11:49)
[2021-01-09] MEDS ORDERED: ROCURONIUM 10 MG/ML (5 ML VIAL) IV ONE (11:49)
[2021-01-09] MEDS ORDERED: LABETALOL 5 MG/ML VIAL MDV ONE (11:49)
[2021-01-09] MEDS ORDERED: BUPIVACAINE (PF) 0.25% 30 ML VIAL SQ ONE ×2 (12:12)
--- NOTE | 2021-01-09 13:51 | P.OP ---
Date of Procedure: 01/09/21 Preoperative Diagnosis: Biliary dyskinesia Postoperative Diagnosis: Biliary dyskinesia Intra-abdominal adhesions Procedure(s) Performed: Laparoscopic cholecystectomy, converted to open cholecystectomy Anesthesia: ARACELIS Surgeon: Aki Marinelli Pathology: other (Gallbladder and contents) Condition: stable Disposition: floor Indications for Procedure: This is a 65-year-old female that presents for an elective cholecystectomy. She was found to have an abnormally low ejection fraction on HIDA scan that was performed as part of her workup due to abdominal pain over the past 2 years. She did complain of some radiation of the pain to the right shoulder. She also admitted to nausea. Plan was for laparoscopic cholecystectomy, possible open cholecystectomy. Patient was explained risks, benefits and alternatives to the procedure did provide consent prior to attending the operating suite. Operative Findings: Dense intra-abdominal adhesions from patient's previous abdominal surgery of colectomy Distended gallbladder Description of Procedure: Patient was brought to the operating suite and placed in supine position on the operating table. Sedation was provided by anesthesia and the patient underwent endotracheal intubation. The patient was then prepped and draped in regular sterile fashion. The patient was noted to have a horizontal lower abdominal incision scar on the right abdomen that was made from patient's previous colectomy greater than 20 years ago. Secondary to this and concern for intra- abdominal adhesions, the abdomen was entered from [facility]. A small incision was made in the left upper quadrant and the abdomen was entered under direct visualization using a 5 mm Visiport. Pneumoperitoneum was achieved and scope was placed. On examination, the abdomen was noted to have significant amount of intra-abdominal adhesions to the abdominal wall and within the small bowel. On examination of the right upper quadrant, significant amount of adhesions were noted to the inferior portion of the liver with the small bowel and stomach. The gallbladder was not visible whatsoever. Based on the significant amount of adhesions, it was deemed unsafe to continue laparoscopically. Secondary to this, procedure was converted to an open procedure. A right subcostal incision was made and dissection was carried to the fascia. The fascia was incised along the length of the incision and the muscle was divided. The peritoneum was then entered. Dense amount of adhesions were noted at the inferior portion of the liver. These were dissected free bluntly and with some sharp dissection. The gallbladder was then visible. A Bookwalter retractor was then placed to increase visibility. The gallbladder was then grasped and dissected from the liver bed using cautery and sharp dissection. Working towards the infundibulum, the cystic artery was encountered. A right angle dissector was placed and the cystic artery was suture ligated using 2-0 silk suture. On further dissection, the cystic duct was clearly visualized. 2 sutures were tied distally on the cystic duct of 2-0 silk. One suture was tied proximally on the cystic duct with 2-0 silk. The cystic duct was then ligated between the proximal and distal sutures. There was no evidence of any bile leakage. Copious muss irrigation was placed in the right upper quadrant. A MIGUELITO drain was placed in the gallbladder fossa and secured to the abdominal wall using 2-0 nylon suture. The Bookwalter retractor was removed and the wound was closed in layers. The peritoneal layer was closed with 3-0 Vicryl suture in running fashion. The fascial layer was closed with 0 Vicryl suture in running fashion. Skin incision was closed with skin ruth. Sterile dressing was applied. The previous 5 mm port site was also closed with 4-0 Vicryl subcuticular suture. The patient was awakened in the operating suite and taken to post anesthesia care unit in stable condition. Case was discussed with the patient's granddaughter postoperatively.
[2021-01-09] MEDS ORDERED: ONDANSETRON 4 MG/2 ML VIAL IVP PRN (13:52)
[2021-01-09] MEDS ORDERED: NALOXONE 0.4 MG/ML 1 ML VIAL IV PRN (13:52)
[2021-01-09] MEDS: HYDROmorphone 0.5 MG/0.5 ML SYRINGE IVP PRN ×6 (14:11→19:55)
[2021-01-09] MEDS: LACTATED RINGERS 1,000 ML IV SCH ×3 (16:05→23:47)
[2021-01-09] MEDS: HEPARIN SODIUM,PORCINE 5,000 UNIT/ML 1 ML VIAL SQ SCH ×2 (17:16→23:47)
[2021-01-09] MEDS: KETOROLAC 15 MG/ML 1 ML VIAL IVP SCH ×2 (18:40→23:47)
[2021-01-09] MEDS ORDERED: atenoloL 50 MG TAB PO SCH (21:00)
[2021-01-09] MEDS ORDERED: ATORVASTATIN 10 MG TAB PO SCH (21:00)
[2021-01-09] MEDS ORDERED: LEVOTHYROXINE 50 MCG TAB PO SCH (21:00)
[2021-01-09] MEDS ORDERED: MELATONIN 5 MG TABLET PO SCH (21:00)
[2021-01-09] MEDS ORDERED: lisinopriL 10 MG TAB PO SCH (21:00)
[2021-01-10] MEDS: LACTATED RINGERS 1,000 ML IV SCH ×3 (01:01→14:02)
[2021-01-10] MEDS: HYDROcodone/APAP 5-325MG 1 EACH TAB PO PRN ×2 (04:29→11:02)
[2021-01-10] MEDS: KETOROLAC 15 MG/ML 1 ML VIAL IVP SCH ×2 (05:44→12:44)
[2021-01-10] MEDS: HEPARIN SODIUM,PORCINE 5,000 UNIT/ML 1 ML VIAL SQ SCH (08:06)
[2021-01-10] MEDS ORDERED: PANTOPRAZOLE 40 MG/10 ML VIAL IV SCH (09:00)
[2021-01-10 11:12] LABS: Basophils # (A) 0.01 X 10*3/uL (0.00-0.10); Basophils % (A) 0.1 %; Eosinophils # (A) 0.01 X 10*3/uL (0.04-0.35); Eosinophils % (A) 0.1 %; HCT 35.8 % (37.2-46.3); HGB 11.5 g/dL (12.0-15.0); Lymphocytes # (A) 2.17 X 10*3/uL (0.90-5.00); Lymphocytes % (A) 29.3 %; MCH 29.7 pg (27.0-32.0); MCHC 32.1 g/dL (32.0-37.0); MCV 92.5 fL (80.0-97.0); Mean Platelet Volume 10.9 fL (9.5-12.2); Monocytes # (A) 0.54 X 10*3/uL (0.20-1.00); Monocytes % (A) 7.3 %; Neutrophils # (A) 4.63 X 10*3/uL (1.80-7.70); Neutrophils % (A) 62.5 %; Platelet Count 157 X 10*3/uL (140-440); RBC 3.87 X 10*6/uL (4.10-5.20); RDW 13.5 % (11.5-14.5); WBC 7.41 X 10*3/uL (4.50-10.00)
--- NOTE | 2021-01-10 12:46 | P.DS ---
Providers Date of admission: 01/09/21 13:44 Attending physician: Aki Marinelli DO Consults: 01/09/21 13:52 Consult Physician Routine Consulting Provider: Giles Jane Reason/Comments: med mgmt, pt known to you Do you want consulting provider notified?: Yes Primary care physician: Giles Jane [facility] Hospital Course: 65-year-old female presented for laparoscopic cholecystectomy secondary to biliary dyskinesia. She did undergo an open cholecystectomy due to significant amount of intra-abdominal adhesions. She was admitted for postoperative care to the medical surgical floor. She did improve during her admission. Her pain was very well controlled and she was tolerating diet as it was advanced. The patient was noted not to have a leukocytosis. Some laboratory values were still pending as labs are being sent out from the hospital at this time. She did have a MIGUELITO drain that was placed with minimal amount of drainage over the last 24 hours that is serosanguineous in nature. There is no obvious biliary leak. She is notably surgically stable for discharge with follow-up as outpatient. Procedures: Laparoscopic converted to open cholecystectomy Patient Condition at Discharge: Fair Plan - Discharge Summary Discharge Rx Participant: No New Discharge Prescriptions: New HYDROcodone/APAP 5-325MG [[place] 5-325] 1 each PO Q6H PRN #15 tab PRN Reason: Pain Continue Simvastatin 20 mg PO HS Pantoprazole Sodium [Protonix] 40 mg PO HS atenoloL [Atenolol] 50 mg PO HS lisinopriL [Zestril] 10 mg PO HS tiZANidine [Zanaflex] 4 mg PO BID PRN PRN Reason: Pain Cetirizine HCl [Zyrtec] 10 mg PO DAILY PRN PRN Reason: sinus pressure traMADol HCL [Ultram] 50 mg PO BID PRN PRN Reason: Pain Levothyroxine Sodium [Synthroid] 50 mcg PO HS Melatonin 5 mg PO HS Discharge Medication List Pantoprazole Sodium [Protonix] 40 mg PO HS 10/17/16 [History] Simvastatin 20 mg PO HS 10/17/16 [History] atenoloL [Atenolol] 50 mg PO HS 10/17/16 [History] lisinopriL [Zestril] 10 mg PO HS 11/30/16 [History] Cetirizine HCl [Zyrtec] 10 mg PO DAILY PRN 12/26/20 [History] Levothyroxine Sodium [Synthroid] 50 mcg PO HS 12/26/20 [History] Melatonin 5 mg PO HS 12/26/20 [History] tiZANidine [Zanaflex] 4 mg PO BID PRN 12/26/20 [History] traMADol HCL [Ultram] 50 mg PO BID PRN 12/26/20 [History] HYDROcodone/APAP 5-325MG [[place] 5-325] 1 each PO Q6H PRN #15 tab 01/10/21 [Rx] Follow up Appointment(s)/Referral(s): Gilse Jane DO [Primary Care Provider] - 1 Week Aki Marinelli DO [Doctor of Osteopathic Medicine] - 2 Weeks Patient Instructions/Handouts: Open Cholecystectomy (DC) Activity/Diet/Wound Care/Special Instructions: Pneumonia vaccine at discharge No lifting greater than 5 pounds Stay on a low-fat diet Ambulate daily Discharge Disposition: HOME SELF-CARE
[2021-01-10] MEDS ORDERED: PNEUMOCOCCAL VACC-PNEUMOVAX 23 25 MCG/0.5 ML VIAL IM ONE (12:50)
--- NOTE | 2021-01-10 12:58 | P.CONS ---
History of Present Illness - History of Present Illness This is a pleasant 64 years old female with significant past medical history of left breast cancer in 2013, status post chemotherapy then, history of colon cancer in 1987 with no chemotherapy or radiotherapy. She's been monitored by oncologist Dr. Vu once a year, she isn't due to follow up with him this coming January. She follows up with Dr. Up for her bilateral hip and leg and back pain, also she has chronic neck pain status post surgery injection She has history of irritable bowel syndrome and chronic diarrhea. She's been having nonspecific abdominal pain for 2 years and a half, on follow-up with her PCP Dr. Jane last time his physician fire assistant ordered liver ultrasound and showed delayed emptying by the gallbladder as per patient, so she was referred to Dr. Marinelli and was admitted for elective cholecystectomy for biliary dyskinesia. Today is postoperative day #1 she has minimal abdominal pain, she is tolerating diet Vital signs stable, blood pressure on the high side Review of Systems CONSTITUTIONAL: No fever, no malaise, no fatigue. HEENT: No recent visual problems or hearing problems. Denied any sore throat. CARDIOVASCULAR: No orthopnea, PND, no palpitations, no syncope. PULMONARY: No shortness of breath, no cough, no hemoptysis. GASTROINTESTINAL: No diarrhea, no nausea, no vomiting, no abdominal pain. Normoactive bowel sounds. NEUROLOGICAL: No headaches, no weakness, no numbness. HEMATOLOGICAL: Denies any bleeding or petechiae. GENITOURINARY: Denies any burning micturition, frequency, or urgency. MUSCULOSKELETAL/RHEUMATOLOGICAL: Denies any joint pain, swelling, or any muscle pain. ENDOCRINE: Denies any polyuria or polydipsia. Past Medical History Past Medical History: Cancer, GERD/Reflux, Hyperlipidemia, Hypertension, Musculoskeletal Disorder, Sleep Apnea/CPAP/BIPAP Additional Past Medical History / Comment(s): Colon, Breast CA, Lumpectomy Lt Breast. RT kidney NON-FUNCTIONING. NO TX FOR SLEEP APNEA. Arthritis, low bone density, alirio hip and leg pain History of Any Multi-Drug Resistant Organisms: None Reported Past Surgical History: Breast Surgery, Hysterectomy, Orthopedic Surgery Additional Past Surgical History / Comment(s): LT Lumpectomy. Alirio KNEE SCOPE. COLONOSCOPY, EGD. Jorje 05/14/2017, pain clinic procedures Past Anesthesia/Blood Transfusion Reactions: Motion Sickness, Postoperative Nausea & Vomiting (PONV) Additional Past Anesthesia/Blood Transfusion Reaction / Comm: uses scopalamine patch for surgeries Smoking Status: Former smoker - Past Family History Brother(s) Family Medical History: Cancer Sister(s) Family Medical History: Fibromyalgia Father Family Medical History: Coronary Artery Disease (CAD), CVA/TIA, Diabetes Mellitus Additional Family Medical History / Comment(s): congenital heart disease Daughter(s) Family Medical History: CVA/TIA, Diabetes Mellitus Medications and Allergies Home Medications Medication Instructions Recorded Confirmed Type Pantoprazole Sodium [Protonix] 40 mg PO HS 10/17/16 01/09/21 History Simvastatin 20 mg PO HS 10/17/16 01/09/21 History atenoloL [Atenolol] 50 mg PO HS 10/17/16 01/09/21 History lisinopriL [Zestril] 10 mg PO HS 11/30/16 01/09/21 History Cetirizine HCl [Zyrtec] 10 mg PO DAILY PRN 12/26/20 01/09/21 History Levothyroxine Sodium [Synthroid] 50 mcg PO HS 12/26/20 01/09/21 History Melatonin 5 mg PO HS 12/26/20 01/09/21 History tiZANidine [Zanaflex] 4 mg PO BID PRN 12/26/20 01/09/21 History traMADol HCL [Ultram] 50 mg PO BID PRN 12/26/20 01/09/21 History HYDROcodone/APAP 5-325MG [[place] 1 each PO Q6H PRN #15 tab 01/10/21 Rx 5-325] Allergies Allergy/AdvReac Type Severity Reaction Status Date / Time adhesive tape Allergy Severe Skin Verified 01/09/21 11:07 Irritation, BLISTERED SKIN Iodinated Contrast Media Allergy Intermediate Rash/Hives Verified 01/09/21 11:07 [Iodinated Contrast Media - IV Dye] Penicillins AdvReac Severe Abdominal Verified 01/09/21 11:07 Pain, NAUSEA zolpidem [From Ambien] AdvReac Severe migraines Verified 01/09/21 11:07 Physical Exam Vitals: Vital Signs Temp Pulse Resp BP Pulse Ox 01/10/21 08:21 95 16 01/10/21 04:21 98.1 F 95 16 169/71 91 L 01/09/21 20:15 97.7 F 93 16 187/73 98 01/09/21 19:20 16 01/09/21 19:08 16 01/09/21 17:45 93 133/70 01/09/21 17:15 98 126/65 01/09/21 16:45 99 131/65 01/09/21 16:15 99 17 152/68 95 01/09/21 16:00 97 153/69 01/09/21 15:45 97 143/69 01/09/21 15:30 92 17 176/69 95 01/09/21 15:15 98.2 F 92 17 161/71 92 L 01/09/21 14:52 94 16 149/66 99 01/09/21 14:37 93 16 142/65 99 01/09/21 14:22 88 16 96 01/09/21 14:07 90 16 178/74 98 01/09/21 13:52 97.2 F L 87 16 174/78 98 Intake and Output 01/09/21 01/10/21 01/10/21 22:59 06:59 14:59 Intake Total 600 1860 500 Output Total 28 60 Balance 572 1860 440 Intake: Intake, IV Titration 1500 Amount Lactated Ringers 1,000 ml 1500 @ 125 mls/hr IV .Q8H [facility] Rx#:[id number] Oral 600 360 500 Output: Drainage 28 60 Right Abdomen 28 60 Other: Voiding Method Bedside Commode Bedside Commode # Voids 2 1 Weight 96.62 kg GENERAL: The patient is alert and oriented x3, not in any acute distress. Well developed, well nourished. HEENT: Pupils are round and equally reacting to light. EOMI. No scleral icterus. No conjunctival pallor. Normocephalic, atraumatic. No pharyngeal erythema. No thyromegaly. CARDIOVASCULAR: S1 and S2 present. No murmurs, rubs, or gallops. PULMONARY: Chest is clear to auscultation, no wheezing or crackles. -ABDOMEN: Soft, nontender, nondistended, normoactive bowel sounds. No palpable organomegaly. Surgical wound with dressing, healing MUSCULOSKELETAL: No joint swelling or deformity. EXTREMITIES: No cyanosis, clubbing, or pedal edema. NEUROLOGICAL: Gross neurological examination did not reveal any focal deficits. SKIN: No rashes. No petechiae Results CBC & Chem 7: 01/10/21 06:42 Labs: Abnormal Lab Results - Last 24 Hours (Table) 01/10/21 Range/Units 06:42 RBC 3.87 L (4.10-5.20) X 10*6/uL Hgb 11.5 L (12.0-15.0) g/dL Hct 35.8 L (37.2-46.3) % Immature Gran # 0.05 H (0.00-0.04) X 10*3/uL Eosinophils # 0.01 L (0.04-0.35) X 10*3/uL Assessment and Plan Assessment: Biliary dyskinesia status post elective cholecystectomy History of left breast cancer in 2013 History of chronic low back pain radiating to the legs History of irritable bowel syndrome with chronic diarrhea History of colon cancer Plan: This is a pleasant 65 years old female who presents for elective cholecystectomy. Postoperatively she is doing well. She has minimal complaints and tolerating diet. Blood pressure on the high side and Norvasc is been added with close monitoring Labs and medication were reviewed.. Continue same treatment. Continue with symptomatic treatment. Resume home medication. Monitor lytes and vitals. DVT and GI prophylaxis. Further recommendations depends on the clinical course of the patient Thank you for consulting us
[2021-01-10] MEDS ORDERED: amLODIPine 5 MG TAB PO SCH (13:00)
[2021-01-10 14:11] VITALS: BP 142/78; PULSE 70; RESP 15; TEMP 98.7
[2021-01-10 17:45] LABS: African American GFR (CKD) 78.3 (60.0-200.0); Albumin 3.6 g/dL (3.80-4.90); Albumin/Globulin Ratio 1.44 (1.60-3.17); Anion Gap 11.4 mmol/L (4.00-12.00); BUN/Creat Ratio 18.89 Ratio (12.00-20.00); Calcium 9.3 mg/dL (8.7-10.3); Carbon Dioxide 22.6 mmol/L (21.6-31.8); Globulin 2.5 g/dL (1.6-3.3); Non-African American GFR(CKD) 67.6 (60.0-200.0); Potassium 4.6 mmol/L (3.5-5.5); Total Bilirubin 0.7 mg/dL (0.3-1.2); Total Protein 6.1 g/dL (6.2-8.2)
[2021-01-11] MEDS ORDERED: PANTOPRAZOLE 40 MG TABLET PO SCH (07:30)
--- NOTE | 2021-01-14 19:37 | CDI ---
Documentation Clarification Form Date: 01/14/2021 From: Lorena Suazo Phone: If you have a question about this query, please contact Dai Singh Wool Batting Worker at [phone] between 8am and 5pm. Admit Date: 01/09/2021 01:44:00 PM Patient Name: Verna Cook Visit Number: [id number] Discharge Date: 01/10/2021 02:40:00 PM ATTENTION: The Clinical Documentation Specialists (CDI) and [facility] Coding Staff appreciate your assistance in clarifying documentation. Please respond to the clarification below the line at the bottom and electronically sign. The CDI & [facility] Coding staff will review the response and follow-up if needed. Please note: Queries are made part of the Legal Health Record. If you have any questions, please contact the author of this message via ITS. Dr. Aki Marinelli Your patient has the documented diagnosis of hemorrhoids and blood in stool in your notes dated 01/07 H&P. A relationship between diagnoses cannot be assumed unless documented as such by the attending physician. In order to capture the severity of condition; please document the relationship, if any, between these diagnoses. History/Risk Factors: Hx of Colon Cancer Treatment: Previous Colon Resection. Please clarify and document your clinical opinion in the progress notes and discharge summary if any relationship (due to, caused by, secondary to) exists between these two diagnoses. Please include clinical findings supporting your diagnosis. Unable to determine (no explanation for clinical findings) MTDD
== END 2021-01-10 14:40 | disposition home or self-care (01) | DRG 416 ==
LOC: OR 10:14 → 5NMEDONC 13:44
PROVIDERS: ADMIT Surgery; ATTEND Surgery
PROC: 0FJ44ZZ Inspection of Gallbladder, Percutaneous Endoscopic Approach (ICD-10-PCS; 2021-01-09)
PROC: 0FN00ZZ Release Liver, Open Approach (ICD-10-PCS; 2021-01-09)
PROC: 0FT40ZZ Resection of Gallbladder, Open Approach (ICD-10-PCS; principal; 2021-01-09 11:15)
PROC: 3E0234Z Introduction of Serum, Toxoid and Vaccine into Muscle, Percutaneous Approach (ICD-10-PCS; 2021-01-10)
DX: K82.8 Other specified diseases of gallbladder (principal); Z53.31 Laparoscopic surgical procedure converted to open procedure; K66.0 Peritoneal adhesions (postprocedural) (postinfection); G89.29 Other chronic pain; M54.5 Low back pain; K21.9 Gastro-esophageal reflux disease without esophagitis; K44.9 Diaphragmatic hernia without obstruction or gangrene; I12.9 Hypertensive chronic kidney disease with stage 1 through stage 4 chronic kidney disease, or unspecified chronic kidney disease; N18.9 Chronic kidney disease, unspecified; E03.9 Hypothyroidism, unspecified; K64.9 Unspecified hemorrhoids; E78.5 Hyperlipidemia, unspecified; G47.30 Sleep apnea, unspecified; K58.0 Irritable bowel syndrome with diarrhea; M19.90 Unspecified osteoarthritis, unspecified site; Z85.3 Personal history of malignant neoplasm of breast; Z85.038 Personal history of other malignant neoplasm of large intestine; Z92.21 Personal history of antineoplastic chemotherapy; Z87.891 Personal history of nicotine dependence; Z79.899 Other long term (current) drug therapy; Z79.890 Hormone replacement therapy; Z88.8 Allergy status to other drugs, medicaments and biological substances; Z91.041 Radiographic dye allergy status; Z88.0 Allergy status to penicillin; Z23 Encounter for immunization; Z90.710 Acquired absence of both cervix and uterus; Z90.89 Acquired absence of other organs
CPT/HCPCS: 80053; 85025; 86850; 86900; 86901; 88304; 90732

== ENCOUNTER 2021-01-13 11:32 | Emergency (ER) | payer BC ==
[2021-01-13 11:47] VITALS: RESP 18
[2021-01-13] MEDS ORDERED: ONDANSETRON ODT 8 MG TAB.RAPDIS PO STA (12:27)
[2021-01-13] MEDS ORDERED: SODIUM CHLORIDE 0.9% 1,000 ML IV STA (12:27)
[2021-01-13] MEDS ORDERED: MORPHINE SULFATE 4 MG/ML SYRINGE IV STA (12:27)
[2021-01-13] MEDS ORDERED: FAMOTIDINE 20 MG/2 ML VIAL IV STA (12:31)
[2021-01-13] MEDS ORDERED: LORazepam 2 MG/ML INJ IV STA (12:31)
[2021-01-13] MEDS ORDERED: methylPREDNISolone SOD SUCCI 125 MG/2 ML VIAL IV STA (12:31)
[2021-01-13] MEDS ORDERED: diphenhydrAMINE 50 MG/ML 1 ML VIAL IVP STA (12:31)
--- NOTE | 2021-01-13 12:48 | ED ---
Abdominal Pain HPI - General Chief Complaint: Abdominal Pain Stated Complaint: revisit - abd pain Time Seen by Provider: 01/13/21 11:49 Source: patient Mode of arrival: wheelchair Limitations: no limitations - History of Present Illness Initial Comments: Patient is a 65-year-old female presenting to the emergency Department with complaints of abdominal pain that started suddenly this morning. Patient had her gallbladder removed by Dr. Marinelli on , she is currently 4 days postop. Patient states she has been feeling sore but no sharp pains. Patient states approximately 6 AM this morning she awoke to some very sharp pains on the left side of her abdomen, it has been coming in waves but is constant. She states currently her pain is 8/10. She has been taking [place]'s as needed for pain, she did not take any is morning. She has been passing gas, she did pass gas this morning, she's been having bowel movements. She admits to history of colon cancer with partial removal, hysterectomy, no other abdominal surgeries other than the recent cholecystectomy. She denies any fevers, she has been having chills, nausea. No vomiting. She denies any chest pain or shortness of breath. She has no further complaints at this time. Upon arrival to the ER, her vital signs are stable. - Related Data Home Medications Medication Instructions Recorded Confirmed Pantoprazole Sodium [Protonix] 40 mg PO HS 10/17/16 01/13/21 Simvastatin 20 mg PO HS 10/17/16 01/13/21 atenoloL [Atenolol] 50 mg PO HS 10/17/16 01/13/21 lisinopriL [Zestril] 10 mg PO HS 11/30/16 01/13/21 Cetirizine HCl [Zyrtec] 10 mg PO DAILY PRN 12/26/20 01/13/21 Levothyroxine Sodium [Synthroid] 50 mcg PO HS 12/26/20 01/13/21 Melatonin 5 mg PO HS 12/26/20 01/13/21 tiZANidine [Zanaflex] 4 mg PO BID PRN 12/26/20 01/13/21 traMADol HCL [Ultram] 50 mg PO BID PRN 12/26/20 01/13/21 HYDROcodone/APAP 5-325MG [[place] 1 tab PO Q6H PRN 01/13/21 01/13/21 5-325] Previous Rx's Medication Instructions Recorded HYDROcodone/APAP 5-325MG [[place] 1 tab PO Q6HR PRN 3 Days #12 tab 01/13/21 5-325] Ketorolac [Toradol] 10 mg PO Q8HR #15 tab 01/13/21 Allergies Allergy/AdvReac Type Severity Reaction Status Date / Time adhesive tape Allergy Severe Skin Verified 01/13/21 12:46 Irritation, BLISTERED SKIN Iodinated Contrast Media Allergy Intermediate Rash/Hives Verified 01/13/21 12:46 [Iodinated Contrast Media - IV Dye] Penicillins AdvReac Severe Abdominal Verified 01/13/21 12:46 Pain, NAUSEA zolpidem [From Ambien] AdvReac Severe migraines Verified 01/13/21 12:46 Review of Systems ROS Statement: Those systems with pertinent positive or pertinent negative responses have been documented in the HPI. ROS Other: All systems not noted in ROS Statement are negative. Past Medical History Past Medical History: Cancer, GERD/Reflux, Hyperlipidemia, Hypertension, Musculoskeletal Disorder, Sleep Apnea/CPAP/BIPAP Additional Past Medical History / Comment(s): Colon, Breast CA, Lumpectomy Lt Breast. RT kidney NON-FUNCTIONING. NO TX FOR SLEEP APNEA. Arthritis, low bone density, levar hip and leg pain History of Any Multi-Drug Resistant Organisms: None Reported Past Surgical History: Breast Surgery, Cholecystectomy, Hysterectomy, Orthopedic Surgery Additional Past Surgical History / Comment(s): LT Lumpectomy. [place] KNEE SCOPE. COLONOSCOPY, EGD. Jorje 05/14/2017, pain clinic procedures Past Anesthesia/Blood Transfusion Reactions: Motion Sickness, Postoperative Nausea & Vomiting (PONV) Additional Past Anesthesia/Blood Transfusion Reaction / Comment(s): uses scopalamine patch for surgeries Past Psychological History: No Psychological Hx Reported Smoking Status: Former smoker Past Alcohol Use History: None Reported Past Drug Use History: None Reported - Past Family History Brother(s) Family Medical History: Cancer Sister(s) Family Medical History: Fibromyalgia Father Family Medical History: Coronary Artery Disease (CAD), CVA/TIA, Diabetes Mellitus Additional Family Medical History / Comment(s): congenital heart disease Daughter(s) Family Medical History: CVA/TIA, Diabetes Mellitus General Exam - General Exam Comments Initial Comments: GENERAL: Patient is well-developed and well-nourished. Patient is nontoxic and in moderate distress HEAD: Atraumatic, normocephalic. EYES: Pupils equal round and reactive to light, extraocular movements intact, sclera anicteric, conjunctiva are normal. Eyelids were unremarkable. ENT: TMs normal, nares patent, oropharynx clear without exudates. Moist mucous membranes. NECK: Normal range of motion, supple without lymphadenopathy or JVD. LUNGS: Unlabored respirations. Breath sounds clear to auscultation bilaterally and equal. No wheezes rales or rhonchi. HEART: Regular rate and rhythm without murmurs, rubs or gallops. ABDOMEN: Patient is tender mostly in the left side of the abdomen, some mild tenderness on the right side, recent cholecystectomy. Patient does appear slightly distended, she still soft to touch. Positive guarding. No masses appreciated. : Deferred MUSCULOSKELETAL: Normal extremities with adequate strength and normal range of motion, no pitting or edema. No clubbing or cyanosis. NEUROLOGICAL: Patient is alert and oriented x 3. Motor and sensory are also intact. Cranial nerves II through XII grossly intact. Symmetrical smile. Normal speech, normal gait. PSYCH: Normal mood, normal affect. SKIN: Warm, Dry, normal turgor. Recent surgical incision looks lean dry and intact, no signs of infection. She does have some mild bruising on abdomen from heparin injections. Limitations: no limitations Course Vital Signs 01/13/21 01/13/21 01/13/21 11:44 13:44 15:07 Temperature 98.8 F Pulse Rate 74 80 84 Respiratory 18 18 18 Rate Blood Pressure 170/83 192/79 199/85 O2 Sat by Pulse 97 97 95 Oximetry 01/13/21 01/13/21 15:59 16:38 Temperature 98.9 F 97.6 F Pulse Rate 82 82 Respiratory 18 18 Rate Blood Pressure 179/81 183/84 O2 Sat by Pulse 93 L 92 L Oximetry Medical Decision Making - Medical Decision Making Patient is 65-year-old female, currently postop day [address] Marinelli, with severe abdominal pain just started suddenly this morning. Vitals are stable, afebrile. Patient's pain is mostly in the left side of the abdomen. Her incisions look clean, dry and intact. Labs are unremarkable, no rmal white count, normal lactic acid, liver enzymes are very slightly elevated. Urine is normal. Computed tomography scan of the abdomen shows evidence of recent surgery, nonspecific fluid level the gallbladder fossa, evidence for diverticuli but no acute diverticulitis. No other acute findings are seen. She was given fluids, Zofran and pain control. The patient was still in a moderate amount of pain. I did contact Dr. Marinelli who recommended we try Toradol which did improve patient's pain. She states her pain was currently a 1/10. I discussed with patient pain could be from gas or some mild inflammatory changes. Patient is comfortable going home. I will give her a prescription for Toradol to take. She is also requesting a few more tablets of [place] as she is almost out. I did recommend taking the Toradol first to see if it controls her pain. She is in agreement with this. I also recommend walking around her house multiple times throughout the day and she can follow-up with her surgeon. Patient is stable for discharge. Patient is in agreement with this plan of care. Return parameters were discussed with the patient and they verbalized understanding. Case discussed with Dr. Ross. - Lab Data Result diagrams: 01/13/21 12:37 01/13/21 12:37 Lab Results 01/13/21 01/13/21 01/13/21 Range/Units 12:37 12:37 12:37 WBC 6.6 (3.8-10.6) k/uL RBC 4.76 (3.80-5.40) m/uL Hgb 14.4 (11.4-16.0) gm/dL Hct 42.3 (34.0-46.0) % MCV 88.8 (80.0-100.0) fL MCH 30.1 (25.0-35.0) pg MCHC 33.9 (31.0-37.0) g/dL RDW 13.9 (11.5-15.5) % Plt Count 166 (150-450) k/uL MPV 7.8 Neutrophils % 60 % Lymphocytes % 30 % Monocytes % 6 % Eosinophils % 2 % Basophils % 1 % Neutrophils # 4.0 (1.3-7.7) k/uL Lymphocytes # 2.0 (1.0-4.8) k/uL Monocytes # 0.4 (0-1.0) k/uL Eosinophils # 0.1 (0-0.7) k/uL Basophils # 0.0 (0-0.2) k/uL PT 10.3 (9.0-12.0) sec INR 1.0 (<1.2) APTT 22.2 (22.0-30.0) sec Sodium (137-145) mmol/L Potassium (3.5-5.1) mmol/L Chloride (98-107) mmol/L Carbon Dioxide (22-30) mmol/L Anion Gap mmol/L BUN (7-17) mg/dL Creatinine (0.52-1.04) mg/dL Est GFR (CKD-EPI)AfAm (>60 ml/min/1.73 sqM) Est GFR (CKD-EPI)NonAf (>60 ml/min/1.73 sqM) Glucose (74-99) mg/dL Plasma Lactic Acid George (0.7-2.0) mmol/L Calcium (8.4-10.2) mg/dL Total Bilirubin (0.2-1.3) mg/dL AST (14-36) U/L ALT (4-34) U/L Alkaline Phosphatase (38-126) U/L Total Protein (6.3-8.2) g/dL Albumin (3.5-5.0) g/dL Amylase (30-110) U/L Lipase (23-300) U/L Urine Color Light Yellow Urine Appearance Clear (Clear) Urine pH 6.0 (5.0-8.0) Ur Specific [place] 1.006 (1.001-1.035) Urine Protein Negative (Negative) Urine Glucose (UA) Negative (Negative) Urine Ketones Negative (Negative) Urine Blood Negative (Negative) Urine Nitrite Negative (Negative) Urine Bilirubin Negative (Negative) Urine Urobilinogen <2.0 (<2.0) mg/dL Ur Leukocyte Esterase Negative (Negative) 01/13/21 01/13/21 Range/Units 12:37 12:37 WBC (3.8-10.6) k/uL RBC (3.80-5.40) m/uL Hgb (11.4-16.0) gm/dL Hct (34.0-46.0) % MCV (80.0-100.0) fL MCH (25.0-35.0) pg MCHC (31.0-37.0) g/dL RDW (11.5-15.5) % Plt Count (150-450) k/uL MPV Neutrophils % % Lymphocytes % % Monocytes % % Eosinophils % % Basophils % % Neutrophils # (1.3-7.7) k/uL Lymphocytes # (1.0-4.8) k/uL Monocytes # (0-1.0) k/uL Eosinophils # (0-0.7) k/uL Basophils # (0-0.2) k/uL PT (9.0-12.0) sec INR (<1.2) APTT (22.0-30.0) sec Sodium 138 (137-145) mmol/L Potassium 4.4 (3.5-5.1) mmol/L Chloride 104 (98-107) mmol/L Carbon Dioxide 26 (22-30) mmol/L Anion Gap 8 mmol/L BUN 12 (7-17) mg/dL Creatinine 0.73 (0.52-1.04) mg/dL Est GFR (CKD-EPI)AfAm >90 (>60 ml/min/1.73 sqM) Est GFR (CKD-EPI)NonAf 88 (>60 ml/min/1.73 sqM) Glucose 133 H (74-99) mg/dL Plasma Lactic Acid [place] 1.9 (0.7-2.0) mmol/L Calcium 9.5 (8.4-10.2) mg/dL Total Bilirubin 1.1 (0.2-1.3) mg/dL AST 52 H (14-36) U/L ALT 35 H (4-34) U/L Alkaline Phosphatase 82 (38-126) U/L Total Protein 6.8 (6.3-8.2) g/dL Albumin 4.2 (3.5-5.0) g/dL Amylase 33 (30-110) U/L Lipase 111 (23-300) U/L Urine Color Urine Appearance (Clear) Urine pH (5.0-8.0) Ur Specific [place] (1.001-1.035) Urine Protein (Negative) Urine Glucose (UA) (Negative) Urine Ketones (Negative) Urine Blood (Negative) Urine Nitrite (Negative) Urine Bilirubin (Negative) Urine Urobilinogen (<2.0) mg/dL Ur Leukocyte Esterase (Negative) Disposition Clinical Impression: Postoperative abdominal pain Disposition: HOME SELF-CARE Condition: Stable Instructions (If sedation given, give patient instructions): Abdominal Pain (ED) Additional Instructions: Please return to the Emergency Department if symptoms worsen or any other concerns. May take Toradol as prescribed for pain. Please follow up with your surgeon as discussed. Prescriptions: HYDROcodone/APAP 5-325MG [[place] 5-325] 1 tab PO Q6HR PRN 3 Days #12 tab PRN Reason: Pain Ketorolac [Toradol] 10 mg PO Q8HR #15 tab Is patient prescribed a controlled substance at d/c from ED?: Yes When asked, does pt state using other controlled substances?: No If prescribed controlled substance>3 days was MAPS reviewed?: Prescribed <3 Days If opioid is for acute pain is fill amount 7 days or less?: Yes If Rx opioid, was Start Talking consent form obtained?: Yes Referrals: Giles Jane DO [Primary Care Provider] - 1-2 days
[2021-01-13 13:01] LABS: Basophils % (A) 1 %; Eosinophils # (A) 0.1 k/uL (0-0.7); Eosinophils % (A) 2 %; HCT 42.3 % (34.0-46.0); HGB 14.4 gm/dL (11.4-16.0); Lymphocytes % (A) 30 %; MCH 30.1 pg (25.0-35.0); MCHC 33.9 g/dL (31.0-37.0); MCV 88.8 fL (80.0-100.0); Mean Platelet Volume 7.8; Monocytes # (A) 0.4 k/uL (0-1.0); Monocytes % (A) 6 %; Neutrophils % (A) 60 %; Platelet Count 166 k/uL (150-450); RBC 4.76 m/uL (3.80-5.40); RDW 13.9 % (11.5-15.5); WBC 6.6 k/uL (3.8-10.6)
[2021-01-13 13:08] LABS: Appearance,Urine Clear (Clear); Bilirubin,Urine Negative (Negative); Blood,Urine Negative (Negative); Color,Urine Light Yellow; Glucose,Urine (UA) Negative (Negative); Ketones,Urine Negative (Negative); Leukocyte Esterase,Urine Negative (Negative); Nitrite,Urine Negative (Negative); Protein,Urine Negative (Negative); Specific Gravity,Urine 1.006 (1.001-1.035); Urobilinogen,Urine <2.0 mg/dL (<2.0)
[2021-01-13 13:09] LABS: Partial Thromboplastin Time 22.2 sec (22.0-30.0); Prothrombin Time 10.3 sec (9.0-12.0)
[2021-01-13 13:11] LABS: ALT 35 U/L (4-34); AST 52 U/L (14-36); African American GFR (CKD) >90 (>60 ml/min/1.73 sqM); Albumin 4.2 g/dL (3.5-5.0); Alkaline Phosphatase 82 U/L (38-126); Amylase 33 U/L (30-110); Anion Gap 8 mmol/L; Blood Urea Nitrogen 12 mg/dL (7-17); Calcium 9.5 mg/dL (8.4-10.2); Carbon Dioxide 26 mmol/L (22-30); Chloride 104 mmol/L (98-107); Glucose 133 mg/dL (74-99); Lipase 111 U/L (23-300); Non-African American GFR(CKD) 88 (>60 ml/min/1.73 sqM); Potassium 4.4 mmol/L (3.5-5.1); Sodium 138 mmol/L (137-145); Total Bilirubin 1.1 mg/dL (0.2-1.3); Total Protein 6.8 g/dL (6.3-8.2)
--- NOTE | 2021-01-13 13:54 | CT ---
EXAMINATION TYPE: CT abdomen pelvis w con DATE OF EXAM: 01/13/2021 HISTORY: Generalized pain post op krissy. CT DLP: 1489.8mGycm Automated Exposure Control for Dose Reduction was Utilized. CONTRAST: CT scan of the abdomen and pelvis is performed without oral but with IV Contrast, patient injected wi th 100 mL of Isovue 300. COMPARISON: CT October 17 2016. FINDINGS: LUNG BASES: Mild to moderate bibasilar linear scarring and/or atelectasis more prominent from 2016. P artial visualization of right breast implant similar to prior LIVER/GB: Visualized liver remains heterogeneously hypodense consistent with diffuse fatty infiltrati on. There is persistent ovoid low density structure in the christopher hepatis axial image 32. New Vertica l skin ruth with subcutaneous fluid and fat stranding and air consistent with recent cholecystecto my surgery noted. No intrahepatic or extrahepatic biliary dilatation. PANCREAS: No significant abnormality is seen. SPLEEN: Stable 1.6 cm splenule anterior inferior aspect axial image 30r. ADRENALS: No significant abnormality is seen. KIDNEYS: Redemonstration of asymmetric diminished size with volume loss and cortical lobulation in th e right kidney. There is symmetric cortical medullary uptake and excretion without hydronephrosis see n bilaterally. BOWEL: Suboptimal evaluation of bowel without enteric contrast. Diverticula scattered throughout the colon greatest in the sigmoid colon. No CT evidence for acute diverticulitis. There is redemonstratio n of proximal partial colectomy with small bowel anastomosis in the right upper to mid abdomen. UTERUS/ADNEXA: Uterus surgically absent. LYMPH NODES: No greater than 1cm abdominal or pelvic lymph nodes are appreciated. OSSEOUS STRUCTURES: Mild to moderate axial joint space loss in both hips. OTHER: Moderate to severe mixed plaque of the abdominal aorta extends into iliac branch vessels. IMPRESSION: Evidence of recent surgery. Nonspecific ovoid fluid level gallbladder fossa could reflect postsurgical seroma, other etiologies such as retained gallbladder or gallbladder fragment or focal biloma cannot be excluded on CT. No acute findings otherwise seen. HIDA scan follow-up may be benefic ial.
[2021-01-13] MEDS ORDERED: MORPHINE SULFATE 2 MG/ML SYRINGE IVP ONE ×2 (13:59→15:10)
[2021-01-13] MEDS ORDERED: KETOROLAC 15 MG/ML 1 ML VIAL IVP STA (15:15)
[2021-01-13 16:02] VITALS: PULSE 82
[2021-01-13 16:39] VITALS: BP 183/84; TEMP 97.6
== END 2021-01-13 16:38 | disposition home or self-care (01) ==
LOC: EC 11:32
DX: G89.18 Other acute postprocedural pain (principal); K21.9 Gastro-esophageal reflux disease without esophagitis; E78.5 Hyperlipidemia, unspecified; I10 Essential (primary) hypertension; Z87.891 Personal history of nicotine dependence; Z90.49 Acquired absence of other specified parts of digestive tract; Z90.710 Acquired absence of both cervix and uterus; Z85.3 Personal history of malignant neoplasm of breast; Z85.038 Personal history of other malignant neoplasm of large intestine
CPT/HCPCS: 36415; 80053; 82150; 83605; 83690; 85025; 85610; 85730; 81003; 74177; 99284; 96374; 96375; 96376; 96361; J2060; J2270 ×2; J1200; J2930; J1885; Q9967

== ENCOUNTER 2021-06-20 21:22 | Emergency (ER) | payer MEDICARE, BC ==
[2021-06-20] MEDS: SODIUM CHLORIDE 0.9% 1,000 ML IV STA (22:53)
[2021-06-20] MEDS: ONDANSETRON 4 MG/2 ML VIAL IVP STA (22:54)
[2021-06-20] MEDS: MORPHINE SULFATE 2 MG/ML SYRINGE IVP STA (22:55)
[2021-06-20 22:59] VITALS: RESP 16
[2021-06-20 23:00] LABS: Basophils % (A) 1 %; Eosinophils # (A) 0.1 k/uL (0-0.7); Eosinophils % (A) 1 %; HCT 43.2 % (34.0-46.0); HGB 14.9 gm/dL (11.4-16.0); Lymphocytes # (A) 2.7 k/uL (1.0-4.8); Lymphocytes % (A) 39 %; MCH 30.8 pg (25.0-35.0); MCHC 34.5 g/dL (31.0-37.0); MCV 89.5 fL (80.0-100.0); Mean Platelet Volume 8.3; Monocytes # (A) 0.4 k/uL (0-1.0); Monocytes % (A) 6 %; Neutrophils # (A) 3.6 k/uL (1.3-7.7); Neutrophils % (A) 51 %; Platelet Count 193 k/uL (150-450); RBC 4.83 m/uL (3.80-5.40); RDW 13.5 % (11.5-15.5)
[2021-06-20 23:19] LABS: Albumin 4.8 g/dL (3.5-5.0); Appearance,Urine Cloudy (Clear); Bacteria,Urine Occasional /hpf; Bilirubin,Urine Negative (Negative); Blood,Urine Negative (Negative); Calcium 9.8 mg/dL (8.4-10.2); Color,Urine Yellow; Glucose,Urine (UA) Negative (Negative); Hyaline Casts,Urine 5 /lpf (0-2); Ketones,Urine Negative (Negative); Leukocyte Esterase,Urine Small (Negative); Magnesium 1.9 mg/dL (1.6-2.3); Mucus,Urine Moderate /hpf; Nitrite,Urine Negative (Negative); PH, Urine 5.5 (5.0-8.0); Protein,Urine 1+ (Negative); RBC,Urine 1 /hpf (0-5); Squamous Epithelial Cell,Urine 6 /hpf (0-4); Total Bilirubin 0.8 mg/dL (0.2-1.3); Total Protein 7.8 g/dL (6.3-8.2); Urobilinogen,Urine <2.0 mg/dL (<2.0); WBC,Urine 8 /hpf (0-5)
--- NOTE | 2021-06-20 23:30 | ED ---
General Adult HPI - General Chief complaint: Recheck/Abnormal Lab/Rx Stated complaint: elevated BP, sent from [facility] Time Seen by Provider: 06/20/21 21:53 Source: patient Mode of arrival: ambulatory Limitations: no limitations - History of Present Illness Initial comments: 66 year-old female patient presents to the emergency department for evaluation of elevated blood pressure. Patient went to urgent care today for COVID-19 testing and was found to have high blood pressure and was sent here. BP was apparently in the 200s systolic. Patient has been having fevers, chills, abdominal cramping, and diarrhea for the last week. States she is having some chest pressure today. Reports temporal headache bilateral. Denies dizziness, numbness, or tingling. Reports generalized weakness. Fevers have now resolved. She does take lisinopril daily, has been taking her medications. Patient denies any recent rash, cough, shortness of breath, nausea, vomiting, back pain, hematuria, dysuria, urinary urgency, urinary frequency, visual changes, or any other complaints. - Related Data Home Medications Medication Instructions Recorded Confirmed Pantoprazole Sodium [Protonix] 40 mg PO HS 10/17/16 06/20/21 Simvastatin 20 mg PO HS 10/17/16 06/20/21 atenoloL [Atenolol] 50 mg PO HS 10/17/16 06/20/21 lisinopriL [Zestril] 10 mg PO HS 11/30/16 06/20/21 Levothyroxine Sodium [Synthroid] 50 mcg PO HS 12/26/20 06/20/21 Melatonin 5 mg PO HS 12/26/20 06/20/21 tiZANidine [Zanaflex] 4 mg PO BID PRN 12/26/20 06/20/21 Acetaminophen Tab [Tylenol] 325 mg PO Q4H PRN 06/20/21 06/20/21 Calcium Polycarbophil [Fibercon] 2,500 mg PO QID 06/20/21 06/20/21 Ergocalciferol (Vitamin D2) 1,250 mcg PO OVERTON 06/20/21 06/20/21 [Drisdol (50,000 Iu)] Terbinafine [LamISIL] 250 mg PO HS 06/20/21 06/20/21 Previous Rx's Medication Instructions Recorded Lisinopril [Zestril] 10 mg PO BID #20 tab 06/21/21 Allergies Allergy/AdvReac Type Severity Reaction Status Date / Time adhesive tape Allergy Severe Skin Verified 06/20/21 22:17 Irritation, BLISTERED SKIN Iodinated Contrast Media Allergy Intermediate Rash/Hives Verified 06/20/21 22:17 [Iodinated Contrast Media - IV Dye] Penicillins AdvReac Severe Abdominal Verified 06/20/21 22:17 Pain, NAUSEA zolpidem [From Ambien] AdvReac Severe migraines Verified 06/20/21 22:17 Review of Systems ROS Statement: Those systems with pertinent positive or pertinent negative responses have been documented in the HPI. ROS Other: All systems not noted in ROS Statement are negative. Past Medical History Past Medical History: Cancer, GERD/Reflux, Hyperlipidemia, Hypertension, Musculoskeletal Disorder, Sleep Apnea/CPAP/BIPAP Additional Past Medical History / Comment(s): Colon, Breast CA, Lumpectomy Lt Breast. RT kidney NON-FUNCTIONING. NO TX FOR SLEEP APNEA. Arthritis, low bone density, levar hip and leg pain History of Any Multi-Drug Resistant Organisms: None Reported Past Surgical History: Breast Surgery, Cholecystectomy, Hysterectomy, Orthopedic Surgery Additional Past Surgical History / Comment(s): LT Lumpectomy. Levar KNEE SCOPE. COLONOSCOPY, EGD. Jorje 05/14/2017, pain clinic procedures Past Anesthesia/Blood Transfusion Reactions: Motion Sickness, Postoperative Nausea & Vomiting (PONV) Additional Past Anesthesia/Blood Transfusion Reaction / Comment(s): uses scopalamine patch for surgeries Past Psychological History: No Psychological Hx Reported Smoking Status: Former smoker Past Alcohol Use History: None Reported Past Drug Use History: None Reported - Past Family History Brother(s) Family Medical History: Cancer Sister(s) Family Medical History: Fibromyalgia Father Family Medical History: Coronary Artery Disease (CAD), CVA/TIA, Diabetes Mellitus Additional Family Medical History / Comment(s): congenital heart disease Daughter(s) Family Medical History: CVA/TIA, Diabetes Mellitus General Exam Limitations: no limitations General appearance: alert, in no apparent distress, other (Physical well- developed, well-nourished adult female patient in no acute distress. Vital signs upon presentation are temperature 98.1F, pulse 110, respirations 18, blood pressure 198/104, pulse ox 98% on room air.) Eye exam: Present: normal appearance, PERRL, EOMI. Absent: scleral icterus, conjunctival injection, periorbital swelling ENT exam: Present: normal exam, normal oropharynx, mucous membranes moist Respiratory exam: Present: normal lung sounds bilaterally. Absent: respiratory distress, wheezes, rales, rhonchi, stridor Cardiovascular Exam: Present: normal rhythm, tachycardia, normal heart sounds. Absent: systolic murmur, diastolic murmur, rubs, gallop, clicks GI/Abdominal exam: Present: soft, tenderness (Left lower quadrant), normal bowel sounds. Absent: distended, guarding, rebound, rigid Neurological exam: Present: alert, oriented X3, CN II-XII intact Psychiatric exam: Present: normal affect, normal mood Skin exam: Present: warm, dry, intact, normal color. Absent: rash Course Vital Signs 06/20/21 06/20/21 06/21/21 21:34 22:58 00:00 Temperature 98.1 F Pulse Rate 110 H 98 90 Respiratory 18 16 16 Rate Blood Pressure 198/104 181/78 183/86 O2 Sat by Pulse 98 97 98 Oximetry 06/21/21 06/21/21 00:42 01:54 Temperature Pulse Rate 106 H Respiratory 16 Rate Blood Pressure 207/74 164/75 O2 Sat by Pulse 96 Oximetry EKG Findings - EKG Comments: EKG Findings:: EKG obtained at 2141 shows normal sinus rhythm with a ventricular rate of 92, WI interval 158, QRS duration 82, QT 360, QTC 445. No evidence of ST elevation or depression. Medical Decision Making - Medical Decision Making 66-year-old female patient presents to the emergency department today for evaluation of elevated blood pressure. Sent from urgent care after presenting there for "a test for one week history of abdominal cramping and diarrhea. Here she is afebrile with elevated blood pressure. Labs reviewed and revealed normal white blood cell count. Electrolytes unremarkable. COVID here was negative. She was given IV blood pressure medication. This did improve BP. She did have left lower quadrant tenderness, CT abdomen and pelvis was obtained to rule out diverticulitis, CT was negative. She was unable to provide stool sample here. She will be discharged with increase in lisinopril dose. Given script for stool cultures to return with. She is instructed to follow up with primary care physician on Wednesday. Return parameters are discussed in detail. Patient verbalizes understanding and agrees with this plan. Case discussed with my attending Dr. Gastelum. - Lab Data Result diagrams: 06/20/21 22:45 06/20/21 22:45 Lab Results 06/20/21 06/20/21 06/20/21 Range/Units 22:45 22:45 22:45 WBC 7.0 (3.8-10.6) k/uL RBC 4.83 (3.80-5.40) m/uL Hgb 14.9 (11.4-16.0) gm/dL Hct 43.2 (34.0-46.0) % MCV 89.5 (80.0-100.0) fL MCH 30.8 (25.0-35.0) pg MCHC 34.5 (31.0-37.0) g/dL RDW 13.5 (11.5-15.5) % Plt Count 193 (150-450) k/uL MPV 8.3 Neutrophils % 51 % Lymphocytes % 39 % Monocytes % 6 % Eosinophils % 1 % Basophils % 1 % Neutrophils # 3.6 (1.3-7.7) k/uL Lymphocytes # 2.7 (1.0-4.8) k/uL Monocytes # 0.4 (0-1.0) k/uL Eosinophils # 0.1 (0-0.7) k/uL Basophils # 0.0 (0-0.2) k/uL Sodium 140 (137-145) mmol/L Potassium 4.0 (3.5-5.1) mmol/L Chloride 108 H (98-107) mmol/L Carbon Dioxide 19 L (22-30) mmol/L Anion Gap 13 mmol/L BUN 13 (7-17) mg/dL Creatinine 0.84 (0.52-1.04) mg/dL Est GFR (CKD-EPI)AfAm 84 (>60 ml/min/1.73 sqM) Est GFR (CKD-EPI)NonAf 73 (>60 ml/min/1.73 sqM) Glucose 118 H (74-99) mg/dL Plasma Lactic Acid George (0.7-2.0) mmol/L Calcium 9.8 (8.4-10.2) mg/dL Magnesium 1.9 (1.6-2.3) mg/dL Total Bilirubin 0.8 (0.2-1.3) mg/dL AST 50 H (14-36) U/L ALT 31 (4-34) U/L Alkaline Phosphatase 128 H (38-126) U/L Total Protein 7.8 (6.3-8.2) g/dL Albumin 4.8 (3.5-5.0) g/dL Lipase 263 (23-300) U/L Urine Color Yellow Urine Appearance Cloudy H (Clear) Urine pH 5.5 (5.0-8.0) Ur Specific [place] 1.030 (1.001-1.035) Urine Protein 1+ H (Negative) Urine Glucose (UA) Negative (Negative) Urine Ketones Negative (Negative) Urine Blood Negative (Negative) Urine Nitrite Negative (Negative) Urine Bilirubin Negative (Negative) Urine Urobilinogen <2.0 (<2.0) mg/dL Ur Leukocyte Esterase Small H (Negative) Urine RBC 1 (0-5) /hpf Urine WBC 8 H (0-5) /hpf Ur Squamous Epith Cells 6 H (0-4) /hpf Urine Bacteria Occasional H (None) /hpf Hyaline Casts 5 H (0-2) /lpf Urine Mucus Moderate H (None) /hpf Coronavirus (PCR) (Not Detectd) 06/20/21 06/20/21 Range/Units 22:45 23:27 WBC (3.8-10.6) k/uL RBC (3.80-5.40) m/uL Hgb (11.4-16.0) gm/dL Hct (34.0-46.0) % MCV (80.0-100.0) fL MCH (25.0-35.0) pg MCHC (31.0-37.0) g/dL RDW (11.5-15.5) % Plt Count (150-450) k/uL MPV Neutrophils % % Lymphocytes % % Monocytes % % Eosinophils % % Basophils % % Neutrophils # (1.3-7.7) k/uL Lymphocytes # (1.0-4.8) k/uL Monocytes # (0-1.0) k/uL Eosinophils # (0-0.7) k/uL Basophils # (0-0.2) k/uL Sodium (137-145) mmol/L Potassium (3.5-5.1) mmol/L Chloride (98-107) mmol/L Carbon Dioxide (22-30) mmol/L Anion Gap mmol/L BUN (7-17) mg/dL Creatinine (0.52-1.04) mg/dL Est GFR (CKD-EPI)AfAm (>60 ml/min/1.73 sqM) Est GFR (CKD-EPI)NonAf (>60 ml/min/1.73 sqM) Glucose (74-99) mg/dL Plasma Lactic Acid George 1.9 (0.7-2.0) mmol/L Calcium (8.4-10.2) mg/dL Magnesium (1.6-2.3) mg/dL Total Bilirubin (0.2-1.3) mg/dL AST (14-36) U/L ALT (4-34) U/L Alkaline Phosphatase (38-126) U/L Total Protein (6.3-8.2) g/dL Albumin (3.5-5.0) g/dL Lipase (23-300) U/L Urine Color Urine Appearance (Clear) Urine pH (5.0-8.0) Ur Specific [place] (1.001-1.035) Urine Protein (Negative) Urine Glucose (UA) (Negative) Urine Ketones (Negative) Urine Blood (Negative) Urine Nitrite (Negative) Urine Bilirubin (Negative) Urine Urobilinogen (<2.0) mg/dL Ur Leukocyte Esterase (Negative) Urine RBC (0-5) /hpf Urine WBC (0-5) /hpf Ur Squamous Epith Cells (0-4) /hpf Urine Bacteria (None) /hpf Hyaline Casts (0-2) /lpf Urine Mucus (None) /hpf Coronavirus (PCR) Not Detected (Not Detectd) - Radiology Data Radiology results: report reviewed, image reviewed Disposition Clinical Impression: Hypertension, Diarrhea Disposition: HOME SELF-CARE Condition: Good Instructions (If sedation given, give patient instructions): Acute Diarrhea (ED), Hypertension in the Older Adult (ED) Additional Instructions: Take medication as directed. Follow up with the primary care physician for recheck on Wednesday. Return for any new, worsening, or concerning symptoms. Prescriptions: Lisinopril [Zestril] 10 mg PO BID #20 tab Is patient prescribed a controlled substance at d/c from ED?: No Referrals: Giles Jane DO [Primary Care Provider] - 1-2 days Time of Disposition: 02:03
--- NOTE | 2021-06-21 00:28 | CT ---
EXAMINATION TYPE: CT abdomen pelvis wo con DATE OF EXAM: 06/20/2021 COMPARISON: 01/13/2021 HISTORY: LLQ CT DLP: 800.2 mGycm Automated exposure control for dose reduction was used. Images obtained from the diaphragm to the floor the pelvis with no contrast. Lung bases are clear. There is no pleural effusion. There is right breast implant. Heart size is norm al. There is no pericardial effusion. The liver and spleen are intact. There is no pancreatic mass. T here are is apparent cholecystectomy. The bile ducts are not dilated. There is previous surgery in th e right upper quadrant. There are surgical clips. This could be at the gastric antrum. There is no adrenal mass. Right kidney is small and irregular cortical thinning. Left kidney shows co mpensatory hypertrophy. There is no hydronephrosis. Abdominal aorta is atheromatous. There is no retr operitoneal adenopathy. Bladder distends smoothly. There is no inguinal hernia. There is no free flui d in the pelvis. There are surgical clips on the right pelvic sidewall. There are sigmoid diverticula . There is no diverticulitis. Lumbar vertebra have normal alignment. There is no compression fracture . Disc spaces are fairly normal. Bony pelvis is intact. The hip joints are intact. There is no hip dy splasia. Sacroiliac joints are intact. Appendix is not seen. There is no sign of thickened appendix. IMPRESSION: There is clearing of the atelectasis at the lung bases compared to old exam. There is sigmoid diverti culosis without diverticulitis. There is hypoplastic or atrophic right kidney unchanged. Previous elif jeffrey. No acute abnormality in the abdomen pelvis.
[2021-06-21] MEDS: ENALAPRILAT 1.25 MG/ML 1 ML VIAL IVP STA (00:50)
[2021-06-21 02:27] VITALS: BP 127/61; PULSE 96; TEMP 98.3
== END 2021-06-21 02:27 | disposition home or self-care (01) ==
LOC: EC 21:22
DX: I10 Essential (primary) hypertension (principal); R19.7 Diarrhea, unspecified; R10.32 Left lower quadrant pain; R53.1 Weakness; E78.5 Hyperlipidemia, unspecified; K21.9 Gastro-esophageal reflux disease without esophagitis; G47.30 Sleep apnea, unspecified; Z87.891 Personal history of nicotine dependence; Z20.822 Contact with and (suspected) exposure to COVID-19
CPT/HCPCS: 36415; 80053; 83605; 83690; 83735; 85025; 81001; 87635; 74176; 99285; 96374; 96375 ×2; 96361; J2405; J2270; 93005

== ENCOUNTER → 2021-07-03 | Outpatient (CLI) | payer MEDICARE, BC ==
--- NOTE | 2021-07-04 12:04 | MM ---
Reason for exam: additional evaluation requested from prior study. Last mammogram was performed 2 years and 3 months ago. History: Patient is postmenopausal, has history of breast cancer at age 58, and has history of colon cancer at age 32. Family history of premenopausal breast cancer in sister at age 50. Malignant MG stereo VAD BX LT of the left breast, March 29, 2014. Lumpectomy of the left breast, 2013. Radiation therapy of the left breast, 2013. Silicone gel implant in the right breast, 2011. Benign excisional biopsy of the right breast, 2011. Took hormonal contraceptives for 5 years beginning at age 21. Took estrogen for 2 years beginning at age 32. Taking antineoplastic for 5 years beginning at age 58. Physical Findings: Nurse did not find any significant physical abnormalities on exam. MG 3D Diag Mammo Imp W/Cad ANAYELI Bilateral CC and MLO view(s) were taken. ID view(s) were taken of the right breast. Prior study comparison: March 23, 2019, bilateral MG diagnostic mammo w CAD ANAYELI. March 09, 2018, bilateral MG diag mamm implants ANAYELI w CAD. There are scattered fibroglandular densities. Post surgical change right breast with retropectoral silicone implant. Post surgical change left breast with stable small grouped calcifications. No significant new findings when compared with previous films. These results were verbally communicated with the patient and result sheet given to the patient on 07/03/21. ASSESSMENT: Benign, BI-RAD 2 RECOMMENDATION: Follow-up diagnostic mammogram of both breasts in 1 year.
== END | disposition home or self-care (01) ==
LOC: RADMAMWWP 15:06
PROVIDERS: ATTEND Internal Medicine Hematology & Oncology
DX: N64.89 Other specified disorders of breast (principal); Z78.0 Asymptomatic menopausal state; Z80.3 Family history of malignant neoplasm of breast; Z85.3 Personal history of malignant neoplasm of breast
CPT/HCPCS: 77066; G0279; 77062

== ENCOUNTER → 2022-11-25 | Outpatient (CLI) | payer MEDICARE, BC ==
--- NOTE | 2022-11-25 17:56 | CT ---
EXAMINATION TYPE: CT abdomen pelvis w con DATE OF EXAM: 11/25/2022 COMPARISON: 06/20/2021 INDICATION: Colon cancer DLP: 1562 mGycm, Automated exposure control for dose reduction was used. CONTRAST: 70 mL of Isovue 300. Study performed with Oral Contrast TECHNIQUE: Axial images were obtained from above the diaphragm to the pubic rami in the axial plane a t 5 mm thick sections. Reconstructed images are reviewed on the computer in the coronal plane. FINDINGS: Limited CT sections are obtained the lung bases. The lung bases are clear. Right breast prosthesis is present. CT ABDOMEN: Liver: Normal Spleen: Normal Pancreas: Normal Adrenal glands: The adrenal glands are normal. Gallbladder: Normal Kidneys: Right kidney is atrophic. No masses are evident. No hydronephrosis is present. No cysts ar e present. Delayed images were obtained through the kidneys, which remain unremarkable. Aorta: Vascular calcification is within the aorta. Inferior vena cava: Normal. CT PELVIS: Right upper quadrant bowel anastomosis is evident. This area appears unremarkable. There are loops of bowel which are incompletely distended or lack oral contrast limiting their evaluation. Appendix: Normal as visualized. Urinary bladder: Normal. Genitourinary structures: Uterus and ovaries are not identified. Osseous structures: No suspicious lytic or sclerotic lesions. IMPRESSIONS: 1. 1. No suspicious changes to suggest recurrent or metastatic colon cancer.
--- NOTE | 2022-11-26 19:46 | MM ---
Reason for Exam: Screening (asymptomatic). Last mammogram was performed 1 year(s) and 5 month(s) ago. Patient History: Menarche at age 14. First Full-Term at age 18. Left ovary removed at age 32. Right ovary removed at age 32. Hysterectomy at age 32. Postmenopausal. Colorectal cancer, age 32. Breast cancer, age 58. Previous chest radiation therapy at age 58. Estrogen for 2 years from age 32 until age 34. Hormonal Contraceptives, starting at age 21 for 5 years. 2011, Benign Excisional Biopsy on the right side. 2013, Lumpectomy on the Left side. 03/29/2014, Malignant Core Biopsy on the left side. 2013, Radiation Therapy on the left side. 2011, Implant on the right side. Sister had breast cancer, age 50. Prior Study Comparison: 03/09/2018 Bilateral Diagnostic Mammogram, [facility]. 03/23/2019 Bilateral Diagnostic Mammogram, [facility]. 07/03/2021 Bilateral Diagnostic Mammogram, [facility]. Tissue Density: There are scattered fibroglandular densities. Findings: Analyzed By CAD. Redemonstrated bilateral postsurgical change. Stable excisional changes of the left. Retropectoral silicone implant noted on the right. A few scattered moles are redemonstrated. No significant change from prior exams. Overall Assessment: Benign, BI-RAD 2 Management: Screening Mammogram of both breasts in 1 year. 1. Patient should continue monthly self breast exams. 2. A clinical breast exam by your physician is recommended on an annual basis. 3. This exam should not preclude additional follow-up of suspicious palpable abnormalities. Electronically signed and approved by: Maynor Lara M.D. Radiologist
== END | disposition home or self-care (01) ==
LOC: RADCTMAIN 11:34
PROVIDERS: ATTEND Internal Medicine Hematology & Oncology
DX: Z12.31 Encounter for screening mammogram for malignant neoplasm of breast (principal); Z03.89 Encounter for observation for other suspected diseases and conditions ruled out; C18.9 Malignant neoplasm of colon, unspecified; Z78.0 Asymptomatic menopausal state; Z80.3 Family history of malignant neoplasm of breast; Z85.3 Personal history of malignant neoplasm of breast; Z98.82 Breast implant status; Z98.890 Other specified postprocedural states
CPT/HCPCS: 82565; 84520; 77067; 77063; 74177; 36415; Q9967

== ENCOUNTER → 2023-12-27 | Outpatient (CLI) | payer MEDICARE, BC ==
--- NOTE | 2023-12-28 08:12 | MM ---
Reason for Exam: Screening (asymptomatic). Last mammogram was performed 1 year(s) and 1 month(s) ago. Patient History: Menarche at age 14. First Full-Term at age 18. Left ovary removed at age 32. Right ovary removed at age 32. Hysterectomy at age 32. Postmenopausal. Colorectal cancer, age 32. Breast cancer, age 58. Previous chest radiation therapy at age 58. Estrogen for 2 years from age 32 until age 34. Hormonal Contraceptives, starting at age 21 for 5 years. 2011, Benign Excisional Biopsy on the right side. 2013, Lumpectomy on the Left side. 03/29/2014, Malignant Core Biopsy on the left side. 2013, Radiation Therapy on the left side. 2011, Implant on the right side. Sister had breast cancer, age 50. Prior Study Comparison: 03/23/2019 Bilateral Diagnostic Mammogram, [facility]. 07/03/2021 Bilateral Diagnostic Mammogram, [facility]. 11/25/2022 Bilateral MG 3D screen mammo imp/cad., [facility]. Tissue Density: The breast tissue is almost entirely fat. Findings: Analyzed By CAD. Deformity to the right breast. There is no suspicious group of microcalcifications or new suspicious mass. Overall Assessment: Negative, BI-RAD 1 Management: Screening Mammogram of both breasts in [address] [facility] will attempt to contact patient to return for supplemental views and ultrasound if indicated. Patient should continue monthly self-breast exams. A clinical breast exam by your physician is recommended on an annual basis. This exam should not preclude additional follow-up of suspicious palpable abnormalities. Note on Alexia scores and lifetime risk: 1. A Alexia score greater than 3% is considered moderate risk. If this is the case, consider specialist referral to assess eligibility for a risk reducing agent. 2. If overall lifetime risk for the development of breast cancer is 20% or higher, the patient may qualify for future screening with alternating mammogram and breast MRI. Electronically signed and approved by: Arnaud Alamo DO
== END | disposition home or self-care (01) ==
LOC: RADMAMWWP 12:49
PROVIDERS: ATTEND Internal Medicine Hematology & Oncology
DX: Z12.31 Encounter for screening mammogram for malignant neoplasm of breast (principal); D05.12 Intraductal carcinoma in situ of left breast; N18.9 Chronic kidney disease, unspecified; M12.9 Arthropathy, unspecified; E78.5 Hyperlipidemia, unspecified; Z78.0 Asymptomatic menopausal state; Z80.3 Family history of malignant neoplasm of breast
CPT/HCPCS: 77063; 77067

== ENCOUNTER → 2024-01-10 | Outpatient (CLI) | payer MEDICARE, BC ==
--- NOTE | 2024-01-10 16:12 | CT ---
EXAMINATION TYPE: CT chest wo con CT DLP: 473.72 mGycm, Automated exposure control for dose reduction was used. DATE OF EXAM: 01/10/2024 3:56 PM COMPARISON: 11/25/2022 CT. CLINICAL INDICATION:Female, 68 years old with history of pulmonary NODULE R91.1, pulmonary nodule on right lung x 1 week TECHNIQUE: Multiple axial images were obtained through the chest. Sagittal and coronal reformats were created for review. Contrast used: mL of (None if empty) Oral contrast used: (None if empty) FINDINGS: LUNGS/ PLEURA: Left lower lobe 4 mm pulmonary nodule series 3 image 38 right lower lobe superior segm ent groundglass pulmonary nodule measuring up to 22 x 17 mm. AIRWAY: Patent and unremarkable. HEART: Size within normal limits. MEDIASTINUM: No gross evidence of adenopathy. VASCULATURE: No aortic aneurysm. Severe atherosclerosis of the arterial vasculature. MUSCULOSKELETAL: No acute osseous abnormalities, mild fixed excavatum. SOFT TISSUES/LYMPH NODES: Right breast implant. LOWER NECK: No significant findings. UPPER ABDOMEN: Atrophic right kidney. Surgical changes to the bowel in the right upper quadrant. IMPRESSION: 1. 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 Surveillance is recommended. Consideration for robotic assi sted biopsy could be considered. 2. Left lower lobe 3 mm pulmonary nodule. 3. Mild pectus excavatum 4. Intact right breast implant.
== END | disposition home or self-care (01) ==
LOC: RADCTMAIN 15:38
PROVIDERS: ATTEND Internal Medicine Hematology & Oncology
DX: Q67.6 Pectus excavatum (principal); R91.1 Solitary pulmonary nodule; D05.12 Intraductal carcinoma in situ of left breast; N18.9 Chronic kidney disease, unspecified; M12.9 Arthropathy, unspecified; E78.5 Hyperlipidemia, unspecified; Z71.3 Dietary counseling and surveillance; Z98.82 Breast implant status
CPT/HCPCS: 71250

== ENCOUNTER 2024-04-15 00:07 | Inpatient (IN) | payer MEDICARE, BC ==
[2024-04-15 01:14] LABS: Basophils # (A) 0.1 k/uL (0-0.2); Basophils % (A) 1 %; Eosinophils # (A) 0.2 k/uL (0-0.7); Eosinophils % (A) 2 %; HCT 39.1 % (34.0-46.0); HGB 12.5 gm/dL (11.4-16.0); Lymphocytes % (A) 19 %; MCH 27.3 pg (25.0-35.0); MCHC 31.9 g/dL (31.0-37.0); MCV 85.5 fL (80.0-100.0); Mean Platelet Volume 7.8; Monocytes # (A) 0.6 k/uL (0-1.0); Monocytes % (A) 6 %; Neutrophils # (A) 7.6 k/uL (1.3-7.7); Neutrophils % (A) 72 %; Platelet Count 287 k/uL (150-450); RBC 4.58 m/uL (3.80-5.40); RDW 14.8 % (11.5-15.5); WBC 10.5 k/uL (3.8-10.6)
[2024-04-15 01:22] LABS: Appearance,Urine Clear (Clear); Bilirubin,Urine Negative (Negative); Blood,Urine Negative (Negative); Color,Urine Colorless; Glucose,Urine (UA) Negative (Negative); Ketones,Urine 1+ (Negative); Leukocyte Esterase,Urine Negative (Negative); Nitrite,Urine Negative (Negative); Protein,Urine Trace (Negative); Specific Gravity,Urine 1.008 (1.001-1.035); Urobilinogen,Urine <2.0 mg/dL (<2.0)
[2024-04-15 01:29] LABS: ALT 16 U/L (4-34); AST 29 U/L (14-36); African American GFR (CKD) 16 (>60 ml/min/1.73 sqM); Albumin 4.8 g/dL (3.5-5.0); Alkaline Phosphatase 102 U/L (38-126); Amylase 51 U/L (30-110); Anion Gap 18 mmol/L; Blood Urea Nitrogen 32 mg/dL (7-17); Calcium 9.6 mg/dL (8.4-10.2); Carbon Dioxide 15 mmol/L (22-30); Chloride 102 mmol/L (98-107); Glucose 131 mg/dL (74-99); Lipase 153 U/L (23-300); Non-African American GFR(CKD) 14 (>60 ml/min/1.73 sqM); Potassium 4.1 mmol/L (3.5-5.1); Sodium 135 mmol/L (137-145); Total Bilirubin 1.2 mg/dL (0.2-1.3)
[2024-04-15] MEDS: SODIUM CHLORIDE 0.9% 1,000 ML IV ONE (02:22)
[2024-04-15] MEDS: MORPHINE SULFATE 4 MG/ML SYRINGE IV STA ×2 (02:22→04:26)
--- NOTE | 2024-04-15 04:15 | CT ---
EXAM: CT Abdomen and Pelvis Without Intravenous Contrast CLINICAL HISTORY: ITS.REASON CT Reason: LLQ pain TECHNIQUE: Axial computed tomography images of the abdomen and pelvis without intravenous contrast. CTDI is 13.9 mGy and DLP is 721.9 mGy-cm. This CT exam was performed using one or more of the following dose reduction techniques: automated exposure control, adjustment of the mA and/or kV according to patient size, and/or use of iterative reconstruction technique. COMPARISON: No relevant prior studies available. FINDINGS: Limitations: Limited evaluation in the absence of contrast. Lung bases: Mild dependent scarring at the lung bases. No consolidation. ABDOMEN: Liver: Mild nodularity within the liver. Findings can be seen with cirrhotic morphology. Gallbladder and bile ducts: Unremarkable. No calcified stones. No ductal dilation. Pancreas: Unremarkable. No ductal dilation. Spleen: Small splenule. Adrenals: Unremarkable. No mass. Kidneys and ureters: No evidence of radiopaque renal calculi or signs of collecting system dilatation. Atrophic right kidney. This is favored to be chronic in nature. Stomach and bowel: Colonic diverticulosis. Mild thickening of the sigmoid colon with underlying stranding and suspected inflamed diverticula. Findings may relate to mild diverticulitis. Consider contrast-enhanced imaging and correlation with laboratory values. Right hemicolectomy changes. No obstruction. PELVIS: Appendix: See above. Bladder: Unremarkable. No stones. Reproductive: Hysterectomy changes. ABDOMEN and PELVIS: Intraperitoneal space: Unremarkable. No free air. No significant fluid collection. Bones/joints: Degenerative changes in the spine. No acute fracture. No dislocation. Soft tissues: Overlying stranding in the inguinal regions which is likely reactive. Right breast prosthesis. Umbilical hernia containing fat. Vasculature: Atherosclerotic disease. Aortofemoral bypass graft changes with grafting extending from the infrarenal abdominal aorta to the common femoral bifurcations. Mild stranding noted within the graft. If there is further concern for graft pathology, consider arterial phase imaging. No abdominal aortic aneurysm. Lymph nodes: Unremarkable. No enlarged lymph nodes. Other findings: Midline abdominal surgical scar. IMPRESSION: 1. Limited evaluation in the absence of contrast. 2. No evidence of radiopaque renal calculi or signs of collecting system dilatation. 3. Atrophic right kidney. This is favored to be chronic in nature. 4. Colonic diverticulosis. Mild thickening of the sigmoid colon with underlying stranding and suspected inflamed diverticula. Findings may relate to mild diverticulitis. Consider contrast-enhanced imaging and correlation with laboratory values. 5. Aortofemoral bypass graft changes with grafting extending from the infrarenal abdominal aorta to the common femoral bifurcations. Mild stranding noted within the graft. If there is further concern for graft pathology, consider arterial phase imaging. 6. Overlying stranding in the inguinal regions which is likely reactive. 7. Mild nodularity within the liver. Findings can be seen with cirrhotic morphology. 8. Other incidental findings as described. <MYCVCSECTION> Communications: 04/15/24 04:21 Verify Receipt Verified receipt with Clerk Toussaint for Dr. Mallory on 04/15 04:21 (-04:00)
[2024-04-15] MEDS ORDERED: NALOXONE 0.4 MG/ML 1 ML VIAL IV PRN (04:29)
[2024-04-15] MEDS ORDERED: MORPHINE SULFATE 4 MG/ML SYRINGE IV PRN (04:29)
[2024-04-15] MEDS ORDERED: ONDANSETRON 4 MG/2 ML VIAL IVP PRN (04:29)
[2024-04-15] MEDS: metroNIDAZOLE-NS PMX 500 MG in SALINE 1 100ML.BAG IVPB SCH (05:18)
[2024-04-15] MEDS: SODIUM CHLORIDE 0.9% 1,000 ML IV SCH (05:18)
[2024-04-15] MEDS: hydrALAZINE HCL 20 MG/ML 1 ML VIAL IVP STA (05:49)
--- NOTE | 2024-04-15 06:05 | ED ---
Abdominal Pain HPI - General Chief Complaint: Abdominal Pain Stated Complaint: abd pain Time Seen by Provider: 04/15/24 00:44 Source: patient Mode of arrival: ambulatory Limitations: no limitations - History of Present Illness Initial Comments: Patient is 68-year-old woman who presents to evaluation for abdominal pain, nausea vomiting. The patient states she had been having pains and went to the clinic where she was diagnosed with diverticulitis and also with urinary tract infection.. She had been prescribed ciprofloxacin and had been able to take 1 dose of that and then she was having nausea and vomiting and not tolerating oral intake. MD Complaint: abdominal pain -: days(s) Location: LUQ, LLQ Radiation: back Migration to: no migration Severity: moderate Quality: aching Consistency: constant Improves With: nothing Worsens With: nothing Associated Symptoms: vomiting - Related Data Home Medications Medication Instructions Recorded Confirmed Pantoprazole Sodium [Protonix] 40 mg PO DAILY 10/17/16 04/15/24 Simvastatin 20 mg PO HS 10/17/16 04/15/24 Levothyroxine Sodium [Synthroid] 50 mcg PO HS 12/26/20 04/15/24 tiZANidine [Zanaflex] 4 mg PO BID PRN 12/26/20 04/15/24 Amitriptyline HCl [Elavil] 10 mg PO HS 04/15/24 04/15/24 Apixaban [Eliquis] 5 mg PO BID 04/15/24 04/15/24 Fluticasone Propion/Salmeterol 1 puff INHALATION RT-BID 04/15/24 04/15/24 [Fluticasone-Salmeterol 100-50] Metoprolol Tartrate [Lopressor] 50 mg PO BID 04/15/24 04/15/24 Nystatin 100,000Unit/gm Cream 1 applic TOPICAL BID PRN 04/15/24 04/15/24 [Mycostatin Cream] metFORMIN HCL [metFORMIN HCL ER] 750 mg PO DAILY 04/15/24 04/15/24 Previous Rx's Medication Instructions Recorded Ciprofloxacin HCl [Cipro] 750 mg PO DAILY #7 tab 04/18/24 Triamcinolone 0.1% Cream [Kenalog 1 applic TOPICAL BID each 04/18/24 0.1% Cream] polyethylene glycoL 3350 [Miralax] 17 gm PO DAILY packet 04/18/24 HYDROcodone/APAP 5-325MG [[place] 1 tab PO Q6HR PRN 3 Days #12 tab 04/19/24 5-325] Ondansetron Odt [Zofran Odt] 4 mg PO Q8HR PRN #20 tab 04/19/24 metroNIDAZOLE [Flagyl] 500 mg PO TID #18 tab 04/19/24 Allergies Allergy/AdvReac Type Severity Reaction Status Date / Time adhesive tape Allergy Severe Skin Verified 04/15/24 08:39 Irritation, BLISTERED SKIN Iodinated Contrast Media Allergy Intermediate Rash/Hives Verified 04/15/24 08:39 [Iodinated Contrast Media - IV Dye] cellulose,oxidized Allergy Rash/Hives Verified 04/15/24 08:39 [From Surgicel] Penicillins AdvReac Severe Abdominal Verified 04/15/24 08:39 Pain, NAUSEA&VOMITING zolpidem [From Ambien] AdvReac Severe migraines Verified 04/15/24 08:39 Review of Systems ROS Statement: Those systems with pertinent positive or pertinent negative responses have been documented in the HPI. ROS Other: All systems not noted in ROS Statement are negative. Constitutional: Reports: fever. Denies: chills Respiratory: Denies: cough, dyspnea Cardiovascular: Denies: chest pain, palpitations Gastrointestinal: Reports: abdominal pain, nausea, vomiting. Denies: diarrhea, constipation Genitourinary: Denies: dysuria, hematuria Musculoskeletal: Denies: back pain Skin: Denies: rash Neurological: Denies: headache, weakness, numbness Past Medical History Past Medical History: Atrial Fibrillation, Cancer, GERD/Reflux, Hyperlipidemia, Hypertension, Musculoskeletal Disorder, Sleep Apnea/CPAP/BIPAP Additional Past Medical History / Comment(s): Colon, Breast CA, Lumpectomy Lt Breast. RT kidney NON-FUNCTIONING. NO TX FOR SLEEP APNEA. Arthritis, low bone density, alirio hip and leg pain History of Any Multi-Drug Resistant Organisms: None Reported Past Surgical History: Breast Surgery, Cholecystectomy, Coronary Bypass/CABG, Hysterectomy, Orthopedic Surgery Additional Past Surgical History / Comment(s): LT Lumpectomy. Alirio KNEE SCOPE. COLONOSCOPY, EGD. Jorje 05/14/2017, pain clinic procedures Past Anesthesia/Blood Transfusion Reactions: Motion Sickness, Postoperative Nausea & Vomiting (PONV) Additional Past Anesthesia/Blood Transfusion Reaction / Comment(s): uses scopalamine patch for surgeries Past Psychological History: No Psychological Hx Reported Smoking Status: Former smoker Past Alcohol Use History: None Reported Past Drug Use History: None Reported - Past Family History Brother(s) Family Medical History: Cancer Sister(s) Family Medical History: Fibromyalgia Father Family Medical History: Coronary Artery Disease (CAD), CVA/TIA, Diabetes Mellitus Additional Family Medical History / Comment(s): congenital heart disease Daughter(s) Family Medical History: CVA/TIA, Diabetes Mellitus General Exam Limitations: no limitations General appearance: alert, in no apparent distress Head exam: Present: atraumatic, normocephalic Eye exam: Present: normal appearance. Absent: scleral icterus, conjunctival injection ENT exam: Present: normal oropharynx Neck exam: Present: normal inspection Respiratory exam: Present: normal lung sounds bilaterally. Absent: respiratory distress, wheezes, rales, rhonchi, stridor, accessory muscle use Cardiovascular Exam: Present: regular rate, normal rhythm, normal heart sounds. Absent: systolic murmur, diastolic murmur, rubs, gallop GI/Abdominal exam: Present: soft, tenderness. Absent: distended, guarding, rebound, rigid, mass, pulsatile mass Extremities exam: Present: normal inspection, normal capillary refill. Absent: pedal edema, calf tenderness Back exam: Present: normal inspection. Absent: CVA tenderness (R), CVA tenderness (L) Neurological exam: Present: alert Skin exam: Present: warm, dry, intact, normal color. Absent: rash Course Vital Signs 04/15/24 04/15/24 04/15/24 00:11 02:57 05:29 Temperature 97.5 F L 98.3 F Pulse Rate 94 94 102 H Respiratory 18 18 16 Rate Blood Pressure 164/61 174/70 187/73 O2 Sat by Pulse 100 98 99 Oximetry 04/15/24 04/15/24 04/15/24 06:37 07:45 10:44 Temperature Pulse Rate 106 H 105 H Respiratory 24 18 Rate Blood Pressure 167/57 149/63 O2 Sat by Pulse 100 95 Oximetry 04/15/24 17:40 Temperature Pulse Rate 98 Respiratory 18 Rate Blood Pressure 146/59 O2 Sat by Pulse 95 Oximetry Medical Decision Making - Medical Decision Making Patient is a 68-year-old woman with abdominal pain which has worsened, and associated vomiting, not tolerating oral intake. She was not able to tolerate the antibiotic course. The patient's workup does reveal acute kidney injury probably secondary to poor oral intake. Given that she is not tolerating medicine will admit to have further antibiotic and fluid treatment. Will consult nephrology related to acute kidney injury Was pt. sent in by a medical professional or institution (, SUZY, SUPPORT GROUP MANAGER, urgent care, hospital, or fci...) When possible be specific @ -[No] Did you speak to anyone other than the patient for history (EMS, parent, family, police, friend...)? What history was obtained from this source @ -[No] Did you review nursing and triage notes (agree or disagree)? Why? @ -[I reviewed and agree with nursing and triage notes] Were old charts reviewed (outside hosp., previous admission, EMS record, old EKG, old radiological studies, urgent care reports/EKG's, fci records)? Report findings @ -[No old charts were reviewed] Differential Diagnosis (chest pain, altered mental status, abdominal pain women, abdominal pain men, vaginal bleeding, weakness, fever, dyspnea, syncope, headache, dizziness, GI bleed, back pain, seizure, CVA, palpatations, mental health, musculoskeletal)? @ -[Differential Abdominal Pain Women: Appendicitis, Cholecystitis, diverticulosis, ischemic bowel, pancreatitis, hepatitis, UTI, gastroenteritis, AAA, incarcerated hernia, bowel obstruction, constipation, inflammatory bowel, hepatitis, peptic ulcer disease, splenic infarction, perforated viscus, vulvitis, ovarian torsion, PID, kidney stone, p lacenta abruption, this is not meant to be an all-inclusive list EKG interpreted by me (3pts min.). @ -[As above] X-rays interpreted by me (1pt min.). @ -[None done] CT interpreted by me (1pt min.). @ -[I interpreted as above U/S interpreted by me (1pt. min.). @ -[None done] What testing was considered but not performed or refused? (CT, X-rays, U/S, labs)? Why? @ -[None] What meds were considered but not given or refused? Why? @ -[None] Did you discuss the management of the patient with other professionals (professionals i.e. , SUZ[employer], SUPPORT GROUP MANAGER, lab, RT, psych nurse, social sciences chair, vessel scrapper helper, teacher, special loan officer, disability case manager)? Give summary @ -Case discussed with admitting physician and treatment recommendations are incorporated Was smoking cessation discussed for >3mins.? @ -[No] Was critical care preformed (if so, how long)? @ -[No] Were there social determinants of health that impacted care today? How? (Homelessness, low income, unemployed, alcoholism, drug addiction, transporta tion, low edu. Level, literacy, decrease access to med. care, alf, rehab)? @ -[No] Was there de-escalation of care discussed even if they declined (Discuss DNR or withdrawal of care, Hospice)? DNR status @ -[No] What co-morbidities impacted this encounter? (DM, HTN, Smoking, COPD, CAD, Cancer, CVA, ARF, Chemo, Hep., AIDS, mental health diagnosis, sleep apnea, morbid obesity)? @ -[None] Was patient admitted / discharged? Hospital course, mention meds given and route, prescriptions, significant lab abnormalities, going to OR and other pertinent info. @ -[This patient is 68-year-old woman presenting with abdominal pain, nausea vomiting. The workup here does reveal that she has acute kidney injury. The patient will be admitted for fluid and antibiotic treatment as well as nephrology consultation Undiagnosed new problem with uncertain prognosis? @ -[No] Drug Therapy requiring intensive monitoring for toxicity (Heparin, Nitro, Insulin, Cardizem)? @ -[No] Were any procedures done? @ -[No] Diagnosis/symptom? @ -[Acute diverticulitis Acute kidney injury Acute, or Chronic, or Acute on Chronic? @ -[Acute Uncomplicated (without systemic symptoms) or Complicated (systemic symptoms)? @ -[Diverticulitis complicated by acute kidney injury Side effects of treatment? @ -[No] Exacerbation, Progression, or Severe Exacerbation? @ -[No] Poses a threat to life or bodily function? How? (Chest pain, USA, MS, pneumonia, PE, COPD, DKA, ARF, appy, cholecystitis, CVA, Diverticulitis, Homicidal, Suicidal, threat to staff... and all critical care pts) @ -[Yes there is risk to kidney function - Lab Data Result diagrams: 04/15/24 00:51 04/19/24 07:40 Lab Results 04/15/24 04/15/24 04/15/24 Range/Units 00:51 00:51 00:51 WBC 10.5 (3.8-10.6) k/uL RBC 4.58 (3.80-5.40) m/uL Hgb 12.5 (11.4-16.0) gm/dL Hct 39.1 (34.0-46.0) % MCV 85.5 (80.0-100.0) fL MCH 27.3 (25.0-35.0) pg MCHC 31.9 (31.0-37.0) g/dL RDW 14.8 (11.5-15.5) % Plt Count 287 (150-450) k/uL MPV 7.8 Neutrophils % 72 % Lymphocytes % 19 % Monocytes % 6 % Eosinophils % 2 % Basophils % 1 % Neutrophils # 7.6 (1.3-7.7) k/uL Lymphocytes # 2.0 (1.0-4.8) k/uL Monocytes # 0.6 (0-1.0) k/uL Eosinophils # 0.2 (0-0.7) k/uL Basophils # 0.1 (0-0.2) k/uL Sodium 135 L (137-145) mmol/L Potassium 4.1 (3.5-5.1) mmol/L Chloride 102 (98-107) mmol/L Carbon Dioxide 15 L (22-30) mmol/L Anion Gap 18 mmol/L BUN 32 H (7-17) mg/dL Creatinine 3.25 H (0.52-1.04) mg/dL Est GFR (CKD-EPI)AfAm 16 (>60 ml/min/1.73 sqM) Est GFR (CKD-EPI)NonAf 14 (>60 ml/min/1.73 sqM) Glucose 131 H (74-99) mg/dL Calcium 9.6 (8.4-10.2) mg/dL Total Bilirubin 1.2 (0.2-1.3) mg/dL AST 29 (14-36) U/L ALT 16 (4-34) U/L Alkaline Phosphatase 102 (38-126) U/L Total Protein 8.0 (6.3-8.2) g/dL Albumin 4.8 (3.5-5.0) g/dL Amylase 51 (30-110) U/L Lipase 153 (23-300) U/L Urine Color Colorless Urine Appearance Clear (Clear) Urine pH 5.0 (5.0-8.0) Ur Specific [place] 1.008 (1.001-1.035) Urine Protein Trace H (Negative) Urine Glucose (UA) Negative (Negative) Urine Ketones 1+ H (Negative) Urine Blood Negative (Negative) Urine Nitrite Negative (Negative) Urine Bilirubin Negative (Negative) Urine Urobilinogen <2.0 (<2.0) mg/dL Ur Leukocyte Esterase Negative (Negative) Disposition Clinical Impression: Diverticulitis, Acute kidney injury Disposition: ADMITTED IP TO THIS [facility] Condition: Stable Is patient prescribed a controlled substance at d/c from ED?: No
[2024-04-15] MEDS: MAG HYDROX/AL HYDROX/SIMETH 30 ML CUP PO PRN (08:35)
[2024-04-15] MEDS: FAMOTIDINE 20 MG TAB PO SCH (08:39)
[2024-04-15] MEDS ORDERED: lisinopriL 10 MG TAB PO SCH (09:00)
[2024-04-15] MEDS ORDERED: KETOROLAC 15 MG/ML 1 ML VIAL IVP PRN (12:41)
[2024-04-15] MEDS: ONDANSETRON 4 MG/2 ML VIAL IVP PRN (13:17)
[2024-04-15] MEDS: PANTOPRAZOLE 40 MG/10 ML VIAL IVP SCH (13:18)
--- NOTE | 2024-04-15 13:42 | P.HPIM ---
History of Present Illness Patient is a pleasant 70-year-old female came with complaints of nausea vomiting and left lower quadrant abdominal pain radiating to the left upper and mid quadrants. Patient is found to have mild diverticulitis. Patient is slightly tachycardic at this time patient is severely nauseous at this time. Patient is also found to have elevated serum creatinine of 3.25 baseline is within normal limits. Patient occasionally gets constipated and patient was constipated for last 3 days. Patient denies any blood in the stools. Patient was started on metronidazole. Will be started on Rocephin. REVIEW OF SYSTEMS: CONSTITUTIONAL: No fever, no malaise, no fatigue. HEENT: No recent visual problems or hearing problems. Denied any sore throat. CARDIOVASCULAR: No chest pain, orthopnea, PND, no palpitations, no syncope. PULMONARY: No shortness of breath, no cough, no hemoptysis. GASTROINTESTINAL as mentioned in HPI NEUROLOGICAL: No headaches, no weakness, no numbness. HEMATOLOGICAL: Denies any bleeding or petechiae. GENITOURINARY: Denies any burning micturition, frequency, or urgency. MUSCULOSKELETAL/RHEUMATOLOGICAL: Denies any joint pain, swelling, or any muscle pain. ENDOCRINE: Denies any polyuria or polydipsia. The rest of the 14-point review of systems is negative. PHYSICAL EXAMINATION: GENERAL: The patient is alert and oriented x3, not in any acute distress. Well developed, well nourished. HEENT: Pupils are round and equally reacting to light. EOMI. No scleral icterus. No conjunctival pallor. Normocephalic, atraumatic. No pharyngeal erythema. No thyromegaly. CARDIOVASCULAR: S1 and S2 present. No murmurs, rubs, or gallops. PULMONARY: Chest is clear to auscultation, no wheezing or crackles. ABDOMEN: Soft, left lower quadrant tenderness nondistended, normoactive bowel sounds. No palpable organomegaly. MUSCULOSKELETAL: No joint swelling or deformity. EXTREMITIES: No cyanosis, clubbing, or pedal edema. NEUROLOGICAL: Gross neurological examination did not reveal any focal deficits. SKIN: No rashes. Assessment and plan -Diverticulitis: Patient will be started on Rocephin and metronidazole monitor the patient -Acute renal failure: Probably because of nausea vomiting, patient will be st arted on IV fluids will repeat her lites tomorrow -Hyperchloremic metabolic acidosis patient was started on lactated Ringer's instead of IV normal saline -Paroxysmal atrial fibrillation: Patient will be resumed on her home medications for this, patient is on Eliquis at home dose of which will be cut down to 2.5 mg twice a day because of acute renal failure -Hyperlipidemia -Hypertension -Gastroesophageal reflux disease -Sleep apnea DVT prophylaxis: On Eliquis as mentioned above Past Medical History Past Medical History: Atrial Fibrillation, Cancer, GERD/Reflux, Hyperlipidemia, Hypertension, Musculoskeletal Disorder, Sleep Apnea/CPAP/BIPAP Additional Past Medical History / Comment(s): Colon, Breast CA, Lumpectomy Lt Breast. RT kidney NON-FUNCTIONING. NO TX FOR SLEEP APNEA. Arthritis, low bone density, alirio hip and leg pain History of Any Multi-Drug Resistant Organisms: None Reported Past Surgical History: Breast Surgery, Cholecystectomy, Coronary Bypass/CABG, Hysterectomy, Orthopedic Surgery Additional Past Surgical History / Comment(s): LT Lumpectomy. Alirio KNEE SCOPE. COLONOSCOPY, EGD. Jorje 05/14/2017, pain clinic procedures Past Anesthesia/Blood Transfusion Reactions: Motion Sickness, Postoperative Nausea & Vomiting (PONV) Additional Past Anesthesia/Blood Transfusion Reaction / Comment(s): uses scopalamine patch for surgeries Past Psychological History: No Psychological Hx Reported Smoking Status: Former smoker Past Alcohol Use History: None Reported Past Drug Use History: None Reported - Past Family History Brother(s) Family Medical History: Cancer Sister(s) Family Medical History: Fibromyalgia Father Family Medical History: Coronary Artery Disease (CAD), CVA/TIA, Diabetes Mellitus Additional Family Medical History / Comment(s): congenital heart disease Daughter(s) Family Medical History: CVA/TIA, Diabetes Mellitus Medications and Allergies Home Medications Medication Instructions Recorded Confirmed Type Pantoprazole Sodium [Protonix] 40 mg PO DAILY 10/17/16 04/15/24 History Simvastatin 20 mg PO HS 10/17/16 04/15/24 History atenoloL [Atenolol] 50 mg PO HS 10/17/16 04/15/24 History Levothyroxine Sodium [Synthroid] 50 mcg PO HS 12/26/20 04/15/24 History tiZANidine [Zanaflex] 4 mg PO BID PRN 12/26/20 04/15/24 History Amitriptyline HCl [Elavil] 10 mg PO HS 04/15/24 04/15/24 History Apixaban [Eliquis] 5 mg PO BID 04/15/24 04/15/24 History Ciprofloxacin HCl [Cipro] 500 mg PO BID 04/15/24 04/15/24 History Fluticasone Propion/Salmeterol 1 puff INHALATION RT-BID 04/15/24 04/15/24 History [Fluticasone-Salmeterol 100-50] Metoprolol Tartrate [Lopressor] 50 mg PO BID 04/15/24 04/15/24 History Nystatin 100,000Unit/gm Cream 1 applic TOPICAL BID PRN 04/15/24 04/15/24 History [Mycostatin Cream] lisinopriL [Zestril] 20 mg PO DAILY 04/15/24 04/15/24 History metFORMIN HCL [metFORMIN HCL ER] 750 mg PO DAILY 04/15/24 04/15/24 History Allergies Allergy/AdvReac Type Severity Reaction Status Date / Time adhesive tape Allergy Severe Skin Verified 04/15/24 08:39 Irritation, BLISTERED SKIN Iodinated Contrast Media Allergy Intermediate Rash/Hives Verified 04/15/24 08:39 [Iodinated Contrast Media - IV Dye] cellulose,oxidized Allergy Rash/Hives Verified 04/15/24 08:39 [From Surgicel] Penicillins AdvReac Severe Abdominal Verified 04/15/24 08:39 Pain, NAUSEA&VOMITING zolpidem [From Ambien] AdvReac Severe migraines Verified 04/15/24 08:39 Physical Exam Vitals: Vital Signs Temp Pulse Resp BP Pulse Ox 04/15/24 10:44 105 H 18 149/63 95 04/15/24 07:45 106 H 24 100 04/15/24 06:37 167/57 04/15/24 05:29 98.3 F 102 H 16 187/73 99 04/15/24 02:57 94 18 174/70 98 04/15/24 00:11 97.5 F L 94 18 164/61 100 Intake and Output 04/14/24 04/15/24 04/15/24 22:59 06:59 14:59 Other: Weight 86.636 kg Results CBC & Chem 7: 04/15/24 00:51 04/15/24 00:51 Labs: Abnormal Lab Results - Last 24 Hours (Table) 04/15/24 04/15/24 Range/Units 00:51 00:51 Sodium 135 L (137-145) mmol/L Carbon Dioxide 15 L (22-30) mmol/L BUN 32 H (7-17) mg/dL Creatinine 3.25 H (0.52-1.04) mg/dL Glucose 131 H (74-99) mg/dL Urine Protein Trace H (Negative) Urine Ketones 1+ H (Negative)
[2024-04-15] MEDS ORDERED: NYSTATIN 100,000UNIT/GM CREAM 30 GM TUBE TOPICAL PRN (13:44)
--- NOTE | 2024-04-15 13:59 | P.NPCON ---
History of Present Illness - Reason for Consult acute renal failure - History of Present Illness patient is a 70-year-old female who was admitted to the hospital with complaints of abdominal pain and back pain. She reports previous history of diverticulitis. patient was also recently maintained on Cipro for possible UTI versus diverticulitis. Patient denies any previous history of kidney diseases. noted to have serum creatinine of 3.2 mg/dL.previous creatinine was 0.7 on 12/08/2023. Patient denies history of use of NSAIDs. She states that she has been voiding now but did notice decrease output 2 days ago. currently maintained on IV fluids. blood pressure has not been low, in fact it's high. maintained on ABDIAZIZ inhibitor's as outpatient, currently on hold Review of Systems as per HPI Past Medical History Past Medical History: Atrial Fibrillation, Cancer, GERD/Reflux, Hyperlipidemia, Hypertension, Musculoskeletal Disorder, Sleep Apnea/CPAP/BIPAP Additional Past Medical History / Comment(s): Colon, Breast CA, Lumpectomy Lt Breast. RT kidney NON-FUNCTIONING. NO TX FOR SLEEP APNEA. Arthritis, low bone density, alirio hip and leg pain History of Any Multi-Drug Resistant Organisms: None Reported Past Surgical History: Breast Surgery, Cholecystectomy, Coronary Bypass/CABG, Hysterectomy, Orthopedic Surgery Additional Past Surgical History / Comment(s): LT Lumpectomy. Alirio KNEE SCOPE. COLONOSCOPY, EGD. Jorje 05/14/2017, pain clinic procedures Past Anesthesia/Blood Transfusion Reactions: Motion Sickness, Postoperative Nausea & Vomiting (PONV) Additional Past Anesthesia/Blood Transfusion Reaction / Comment(s): uses scopalamine patch for surgeries Past Psychological History: No Psychological Hx Reported Smoking Status: Former smoker Past Alcohol Use History: None Reported Past Drug Use History: None Reported - Past Family History Brother(s) Family Medical History: Cancer Sister(s) Family Medical History: Fibromyalgia Father Family Medical History: Coronary Artery Disease (CAD), CVA/TIA, Diabetes Mellitus Additional Family Medical History / Comment(s): congenital heart disease Daughter(s) Family Medical History: CVA/TIA, Diabetes Mellitus Medications and Allergies Home Medications Medication Instructions Recorded Confirmed Type Pantoprazole Sodium [Protonix] 40 mg PO DAILY 10/17/16 04/15/24 History Simvastatin 20 mg PO HS 10/17/16 04/15/24 History atenoloL [Atenolol] 50 mg PO HS 10/17/16 04/15/24 History Levothyroxine Sodium [Synthroid] 50 mcg PO HS 12/26/20 04/15/24 History tiZANidine [Zanaflex] 4 mg PO BID PRN 12/26/20 04/15/24 History Amitriptyline HCl [Elavil] 10 mg PO HS 04/15/24 04/15/24 History Apixaban [Eliquis] 5 mg PO BID 04/15/24 04/15/24 History Ciprofloxacin HCl [Cipro] 500 mg PO BID 04/15/24 04/15/24 History Fluticasone Propion/Salmeterol 1 puff INHALATION RT-BID 04/15/24 04/15/24 History [Fluticasone-Salmeterol 100-50] Metoprolol Tartrate [Lopressor] 50 mg PO BID 04/15/24 04/15/24 History Nystatin 100,000Unit/gm Cream 1 applic TOPICAL BID PRN 04/15/24 04/15/24 History [Mycostatin Cream] lisinopriL [Zestril] 20 mg PO DAILY 04/15/24 04/15/24 History metFORMIN HCL [metFORMIN HCL ER] 750 mg PO DAILY 04/15/24 04/15/24 History Allergies Allergy/AdvReac Type Severity Reaction Status Date / Time adhesive tape Allergy Severe Skin Verified 04/15/24 08:39 Irritation, BLISTERED SKIN Iodinated Contrast Media Allergy Intermediate Rash/Hives Verified 04/15/24 08:39 [Iodinated Contrast Media - IV Dye] cellulose,oxidized Allergy Rash/Hives Verified 04/15/24 08:39 [From Surgicel] Penicillins AdvReac Severe Abdominal Verified 04/15/24 08:39 Pain, NAUSEA&VOMITING zolpidem [From Ambien] AdvReac Severe migraines Verified 04/15/24 08:39 Physical Exam Vitals: Vital Signs Temp Pulse Resp BP Pulse Ox 04/15/24 10:44 105 H 18 149/63 95 04/15/24 07:45 106 H 24 100 04/15/24 06:37 167/57 04/15/24 05:29 98.3 F 102 H 16 187/73 99 04/15/24 02:57 94 18 174/70 98 04/15/24 00:11 97.5 F L 94 18 164/61 100 Intake and Output 04/14/24 04/15/24 04/15/24 22:59 06:59 14:59 Other: Weight 86.636 kg patient is awake, comfortable, no acute distress. Examination of the heart S1 and S2 Examination of the lungs bilateral breath sounds are heard Abdomen is soft nontender Examination of lower extremity shows no significant edema FORESTRY EXTENSION SPECIALIST exam grossly intact Results - Lab Results Most recent lab results Calcium 9.6 mg/dL (8.4-10.2) 04/15/24 00:51 04/15/24 00:51 04/15/24 00:51 Assessment and Plan Assessment: 1. Acute kidney injury, most likely ATN. No significant pyuria to suggest acute interstitial nephritis with recent history of use of ciprofloxacin. Continue to hold ABDIAZIZ inhibitor's and continue with IV hydration.no obstruction noted in the left kidney. Patient has an atrophic right kidney 2. Atrophic right kidney 3. Abdominal pain, most likely related to diverticulitis 4. Peripheral vascular disease status post aorto femoral bypass bilaterally 5. Anion gap metabolic acidosis secondary to acute kidney injury Plan: continue with IV fluids. Repeat labs in a.m. and switch to IV bicarb if patient remains acidotic. Continue to avoid nephrotoxic agents Continue to hold ABDIAZIZ inhibitor's Thank you for the consultation. We will continue to follow the patient with you during her hospitalization.
[2024-04-15] MEDS: ACETAMINOPHEN IV (For NPO) 1,000 MG in EMPTY BAG 1 BAG IVPB PRN (14:25)
[2024-04-15] MEDS: HEPARIN SODIUM,PORCINE 5,000 UNIT/ML 1 ML VIAL SQ SCH (15:18)
[2024-04-15] MEDS: LACTATED RINGERS 1,000 ML IV SCH (16:03)
[2024-04-15] MEDS: SYMBICORT 80-4.5 MCG INHALER INHALATION SCH (20:07)
[2024-04-15] MEDS: APIXABAN 2.5 MG TABLET PO SCH (21:36)
[2024-04-15] MEDS: LEVOTHYROXINE 50 MCG TAB PO SCH (21:36)
[2024-04-15] MEDS: ATORVASTATIN 10 MG TAB PO SCH (21:36)
[2024-04-15] MEDS: atenoloL 50 MG TAB PO SCH (21:36)
[2024-04-15] MEDS: METOPROLOL TARTRATE 50 MG TAB PO SCH (21:36)
[2024-04-16] MEDS ORDERED: FAMOTIDINE 20 MG TAB PO SCH (09:00)
[2024-04-16] MEDS ORDERED: ERGOCALCIFEROL 1,250 MCG (50,000 IU) CAPSULE PO SCH (09:00)
[2024-04-16 09:29] LABS: Blood Urea Nitrogen 27.3 mg/dL (9.0-27.0); Calcium 9.3 mg/dL (8.7-10.3); Carbon Dioxide 20.2 mmol/L (21.6-31.8); Chloride 107 mmol/L (96-109); Glucose 125 mg/dL (70-110); Sodium 141 mmol/L (135-145)
[2024-04-16] MEDS: polyethylene glycoL 3350 17 GM POWD.PACK PO SCH (13:59)
[2024-04-16] MEDS: ACETAMINOPHEN TAB 325 MG TAB PO PRN (18:11)
--- NOTE | 2024-04-16 18:40 | P.PN ---
Subjective Patient is seen for follow-up for acute kidney injury. Patient is admitted to the hospital with complaints of abdominal pain and nausea. Abdominal pain has improved. Patient is maintained on antibiotics for diverticulitis. Currently maintained on IV fluids. Patient reports good urine output. Serum creatinine decreased to 3.0 today. Objective - Vital Signs Vital signs: Vital Signs Temp 97.5 F L 04/16/24 14:16 Pulse 71 04/16/24 14:16 Resp 18 04/16/24 14:16 BP 152/80 04/16/24 14:16 Pulse Ox 100 04/16/24 14:16 FiO2 Intake & Output 04/15/24 04/16/24 04/16/24 18:59 06:59 18:59 Output Total 0 Balance 0 Weight 87.5 kg Output: Post Void Residual 0 Other: Voiding Method Toilet Toilet # Voids 1 1 # Bowel Movements 1 - Exam patient is awake, comfortable, no acute distress. Examination of the heart S1 and S2 Examination of the lungs bilateral breath sounds are heard Abdomen is soft nontender Examination of lower extremity shows no significant edema [employer] exam grossly intact - Labs CBC & Chem 7: 04/15/24 00:51 04/16/24 05:44 Labs: Abnormal Lab Results - Last 24 Hours (Table) 04/16/24 Range/Units 05:44 Carbon Dioxide 20.2 L (21.6-31.8) mmol/L Anion Gap 13.80 H (4.00-12.00) mmol/L BUN 27.3 H (9.0-27.0) mg/dL Creatinine 3.0 H (0.6-1.5) mg/dL Est GFR (CKD-EPI) 17 L (>=60) BUN/Creatinine Ratio 9.10 L (12.00-20.00) Ratio Glucose 125 H (70-110) mg/dL Assessment and Plan Assessment: 1. Acute kidney injury, most likely ATN. No significant pyuria to suggest acute interstitial nephritis with recent history of use of ciprofloxacin. Continue to hold ABDIAZIZ inhibitor's and continue with IV hydration.no obstruction noted in the left kidney. Patient has an atrophic right kidney 2. Atrophic right kidney 3. Abdominal pain, most likely related to diverticulitis 4. Peripheral vascular disease status post aorto femoral bypass bilaterally 5. Anion gap metabolic acidosis secondary to acute kidney injury Plan: continue with IV fluids. Repeat labs in a.m. Continue to avoid nephrotoxic agents Continue to hold ABDIAZIZ inhibitor's
--- NOTE | 2024-04-16 21:30 | P.PN ---
Subjective Progress Note Date: 04/16/24 Patient is a pleasant 70-year-old female came with complaints of nausea vomiting and left lower quadrant abdominal pain radiating to the left upper and mid quadrants. Patient is found to have mild diverticulitis. Patient is slightly tachycardic at this time patient is severely nauseous at this time. Patient is also found to have elevated serum creatinine of 3.25 baseline is within normal limits. Patient occasionally gets constipated and patient was constipated for last 3 days. Patient denies any blood in the stools. Patient was started on metronidazole. Will be started on Rocephin. 04/16/2024 Patient evaluated in follow up today. Continues to report nausea has not had any vomiting and reports not having a bowel movement for the last 6 days. Continues on IV ceftriaxone and flagyl for the diverticulitis. Tolerating some liquid diet. Creatinine 3.0 today. Rule out urinary retention. Review of Systems Constitutional: Denied any fatigue denied any fever. Cardio vascular: denied any chest pain, palpitations Gastrointestinal: denied any vomiting or diarrhea, reports nausea, abdominal pa in and constipation. Pulmonary: Denied any shortness of breath cough Neurologic denied any new focal deficits All inpatient medications were reviewed and appropriate changes in these medications as dictated in the interval history and assessment and plan. PHYSICAL EXAMINATION: GENERAL: The patient is alert and oriented x3, not in any acute distress. Well developed, well nourished. HEENT: Pupils are round and equally reacting to light. EOMI. No scleral icterus. No conjunctival pallor. Normocephalic, atraumatic. No pharyngeal erythema. No thyromegaly. CARDIOVASCULAR: S1 and S2 present. No murmurs, rubs, or gallops. PULMONARY: Chest is clear to auscultation, no wheezing or crackles. ABDOMEN: Soft, left lower quadrant tenderness nondistended, normoactive bowel sounds. No palpable organomegaly. MUSCULOSKELETAL: No joint swelling or deformity. EXTREMITIES: No cyanosis, clubbing, or pedal edema. NEUROLOGICAL: Gross neurological examination did not reveal any focal deficits. SKIN: No rashes. Assessment and plan -Diverticulitis: Patient will be started on Rocephin and metronidazole monitor the patient -Acute renal failure: Probably because of nausea vomiting, patient will be st arted on IV fluids, creatinine at 3.0. Rule out urinary retention. Nephrology on consultation. Continue fluids. Repeat blood work in the AM. -Hyperchloremic metabolic acidosis patient was started on lactated Ringer's instead of IV normal saline -Paroxysmal atrial fibrillation: Patient will be resumed on her home medications for this, patient is on Eliquis at home dose of which will be cut down to 2.5 mg twice a day because of acute renal failure -Hyperlipidemia -Hypertension -Gastroesophageal reflux disease -Sleep apnea -Constipation give miralax if patient unable to have a bowel movement will give dulcolax suppository. DVT prophylaxis: On Eliquis as mentioned above Full Code The impression and plan of care has been dictated by Ariadna Gaytan Nurse Practitioner as directed. Dr. Crystal MD I have performed a history and physical examination and medical decision making of this patient, discussed the same with the dictator, and agree with the dictators assessment and plan as written, documented as a scribe. Based on total visit time, I have performed more than 50% of this visit. Objective - Vital Signs Vital signs: Vital Signs Temp 98.0 F 04/16/24 07:28 Pulse 75 04/16/24 07:28 Resp 16 04/16/24 07:28 BP 149/78 04/16/24 07:28 Pulse Ox 94 L 04/16/24 07:28 FiO2 Intake & Output 04/15/24 04/16/24 04/16/24 18:59 06:59 18:59 Output Total 0 Balance 0 Weight 87.5 kg Output: Post Void Residual 0 Other: Voiding Method Toilet Toilet # Voids 1 - Labs CBC & Chem 7: 04/15/24 00:51 04/16/24 05:44 Labs: Abnormal Lab Results - Last 24 Hours (Table) 04/16/24 Range/Units 05:44 Carbon Dioxide 20.2 L (21.6-31.8) mmol/L Anion Gap 13.80 H (4.00-12.00) mmol/L BUN 27.3 H (9.0-27.0) mg/dL Creatinine 3.0 H (0.6-1.5) mg/dL Est GFR (CKD-EPI) 17 L (>=60) BUN/Creatinine Ratio 9.10 L (12.00-20.00) Ratio Glucose 125 H (70-110) mg/dL Assessment and Plan Time with Patient: Less than 30
--- NOTE | 2024-04-17 08:47 | P.PN ---
Subjective Patient is seen in follow-up for acute kidney injury. Creatinine 3.0 yesterday. Receiving IV fluids. On clear liquid diet. Complains of dry heaves. Has been voiding. Vital signs are stable. General: No acute distress. HEENT: Head exam is unremarkable. LUNGS: No audible rhonchi or wheezes. HEART: Rate and Rhythm are regular. ABDOMEN: Mild generalized tenderness present. EXTREMITITES: No edema. Objective - Vital Signs Vital signs: Vital Signs Temp 97.7 F 04/17/24 07:05 Pulse 74 04/17/24 07:05 Resp 18 04/17/24 07:05 BP 157/82 04/17/24 07:05 Pulse Ox 95 04/17/24 07:05 FiO2 Intake & Output 04/16/24 04/17/24 04/17/24 18:59 06:59 18:59 Intake Total 400 Output Total 0 Balance 0 400 Intake: Oral 400 Output: Post Void Residual 0 Other: Voiding Method Toilet Toilet Bedside Commode # Voids 1 1 1 # Bowel Movements 1 1 - Labs CBC & Chem 7: 04/15/24 00:51 04/16/24 05:44 Labs: Abnormal Lab Results - Last 24 Hours (Table) 04/16/24 Range/Units 05:44 Carbon Dioxide 20.2 L (21.6-31.8) mmol/L Anion Gap 13.80 H (4.00-12.00) mmol/L BUN 27.3 H (9.0-27.0) mg/dL Creatinine 3.0 H (0.6-1.5) mg/dL Est GFR (CKD-EPI) 17 L (>=60) BUN/Creatinine Ratio 9.10 L (12.00-20.00) Ratio Glucose 125 H (70-110) mg/dL Assessment and Plan Plan: Assessment: 1. Acute kidney injury secondary to ATN. ABDIAZIZ inhibitor held. No hydronephros is noted on CT. Patient has atrophic right kidney. UA fairly benign. 2. Atrophic right kidney. Patient states she was first told of this when she was 21 years old. 3. Abdominal pain possibly from diverticulitis. On antibiotics. 4. Peripheral vascular disease status post aortofemoral bypass. 5. Metabolic acidosis secondary to acute kidney injury. Was also on metformin outpatient. Better. Plan: Maintain IV fluids. Continue to monitor renal function and urine output. Bladder scan to make sure no urinary retention. Avoid nephrotoxins.
[2024-04-17 09:00] LABS: BUN/Creat Ratio 8.88 Ratio (12.00-20.00); Blood Urea Nitrogen 23.1 mg/dL (9.0-27.0); Calcium 8.9 mg/dL (8.7-10.3); Carbon Dioxide 20.9 mmol/L (21.6-31.8); Chloride 106 mmol/L (96-109); Glucose 100 mg/dL (70-110); Potassium 4.2 mmol/L (3.5-5.5); Sodium 140 mmol/L (135-145)
[2024-04-17] MEDS ORDERED: CIPROFLOXACIN HCL 500 MG TAB PO SCH (09:45)
[2024-04-17] MEDS: CIPROFLOXACIN HCL 500 MG TAB PO SCH (11:45)
[2024-04-17] MEDS: MAGNESIUM SULFATE-D5W PMX 1 GM in DEXTROSE/WATER 1 100ML.BAG IVPB SCH ×2 (12:09→16:28)
[2024-04-17] MEDS ORDERED: MAGNESIUM SULFATE-D5W PMX 1 GM/100 ML BAG IVPB ONE (13:00)
--- NOTE | 2024-04-17 13:34 | P.PN ---
Subjective Progress Note Date: 04/17/24 This is a 68-year-old female admitted with acute diverticulitis, acute renal failure, paroxysmal atrial fibrillation and multiple other medical issues. Reports 5 bowel movements since yesterday, had received MiraLAX. Continues on ceftriaxone and Flagyl. Declining Flagyl, requesting a different antibiotic, reporting it causing her increased nausea. Maintain on IV fluid hydration. Reports voiding, renal function improving, BUN 23.1, creatinine 2.6. Objective - Vital Signs Vital signs: Vital Signs Temp 97.7 F 04/17/24 07:05 Pulse 74 04/17/24 07:05 Resp 18 04/17/24 07:05 BP 157/82 04/17/24 07:05 Pulse Ox 95 04/17/24 07:05 FiO2 Intake & Output 04/16/24 04/17/24 04/17/24 18:59 06:59 18:59 Intake Total 400 Output Total 0 Balance 0 400 Intake: Oral 400 Output: Post Void Residual 0 Other: Voiding Method Toilet Toilet Toilet Bedside Commode Bedside Commode # Voids 1 1 1 # Bowel Movements 1 1 1 - Exam GENERAL: A&OX3, sitting up in bed, NAD. HEENT: Normocephalic, atraumatic. Conjunctiva normal,MMM. CARDIOVASCULAR: S1 and S2 present. No murmurs, rubs, or gallops. PULMONARY: Unlabored, equal air entry,CTA. ABDOMEN: Soft, nondistended, left lower quadrant tenderness, no guarding, no rigidity, no palpable organomegaly,+BS. EXTREMITIES: No cyanosis, clubbing, or pedal edema. NEUROLOGICAL: Cranial nerves II through XII grossly intact, no focal deficits. SKIN: Warm and dry, no rashes. - Labs CBC & Chem 7: 04/15/24 00:51 04/18/24 08:35 Labs: Abnormal Lab Results - Last 24 Hours (Table) 04/17/24 04/17/24 Range/Units 04:49 04:49 Carbon Dioxide 20.9 L (21.6-31.8) mmol/L Anion Gap 13.10 H (4.00-12.00) mmol/L Creatinine 2.6 H (0.6-1.5) mg/dL Est GFR (CKD-EPI) 20 L (>=60) BUN/Creatinine Ratio 8.88 L (12.00-20.00) Ratio Magnesium 1.3 L (1.6-2.3) mg/dL Assessment and Plan Assessment: Abdominal pain, CT reporting possible mild diverticulitis Acute renal failure secondary to ATN Atrophic right kidney reported on CT, no hydronephrosis Metabolic acidosis secondary to the above, Peripheral vascular disease, status post aorta femoral bypass Morbid obesity, BMI 33 Paroxysmal atrial fibrillation Plan: Continue on current medication regimen ,monitoring and symptomatic treatment. Maintain IV fluid hydration. Continue holding ABDIAZIZ inhibitor. antibiotics adjusted as per PCP, from Flagyl to Cipro-renal dose. Patient reports feeling hungry, will advance diet slowly to full liquids at lunchtime. Close monitoring of renal function with repeat labs ordered for a.m. Increase ambulation as tolerated. The impression and plan of care has been dictated as directed. : I performed a history and examination of this patient, discussed the same with the dictator. I agree with the dictator's note ,documented as a scribe. Any additional findings or plans will be noted.
[2024-04-17] MEDS: tiZANidine 4 MG TAB PO PRN (21:28)
[2024-04-18 09:25] LABS: African American GFR (CKD) 30 (>60 ml/min/1.73 sqM); Anion Gap 6 mmol/L; Blood Urea Nitrogen 18 mg/dL (7-17); Carbon Dioxide 21 mmol/L (22-30); Chloride 112 mmol/L (98-107); Glucose 127 mg/dL (74-99); Magnesium 1.8 mg/dL (1.6-2.3); Non-African American GFR(CKD) 26 (>60 ml/min/1.73 sqM); Potassium 4.2 mmol/L (3.5-5.1); Sodium 139 mmol/L (137-145)
--- NOTE | 2024-04-18 10:30 | P.PN ---
Subjective Patient is seen in follow-up for acute kidney injury. Renal function improving. Receiving IV fluids. Now on regular diet. No further dry heaving. Vital signs are stable. General: No acute distress. HEENT: Head exam is unremarkable. LUNGS: No audible rhonchi or wheezes. HEART: Rate and Rhythm are regular. ABDOMEN: Mild generalized tenderness present. EXTREMITITES: No edema. Objective - Vital Signs Vital signs: Vital Signs Temp 97.6 F 04/18/24 07:05 Pulse 66 04/18/24 07:05 Resp 16 04/18/24 07:05 BP 144/77 04/18/24 07:05 Pulse Ox 95 04/18/24 07:05 FiO2 Intake & Output 04/17/24 04/18/24 04/18/24 18:59 06:59 18:59 Intake Total 1200 Balance 1200 Intake: Intake, IV Titration 1200 Amount Lactated Ringers 1,000 ml 1200 @ 100 mls/hr IV .Q10H [facility] Rx#:[id number] Other: Voiding Method Toilet Toilet Bedside Commode # Voids 1 3 # Bowel Movements 1 - Labs CBC & Chem 7: 04/15/24 00:51 04/18/24 08:35 Labs: Abnormal Lab Results - Last 24 Hours (Table) 04/18/24 Range/Units 08:35 Chloride 112 H (98-107) mmol/L Carbon Dioxide 21 L (22-30) mmol/L BUN 18 H (7-17) mg/dL Creatinine 1.95 H (0.52-1.04) mg/dL Glucose 127 H (74-99) mg/dL Assessment and Plan Plan: Assessment: 1. Acute kidney injury secondary to ATN. ABDIAZIZ inhibitor held. No hydronephrosis noted on CT. Patient has atrophic right kidney. UA fairly benign. Renal function improving. Creatinine 1.95 today. 2. Atrophic right kidney. Patient states she was first told of this when she was 21 years old. 3. Abdominal pain possibly from diverticulitis. On antibiotics. 4. Peripheral vascular disease status post aortofemoral bypass. 5. Metabolic acidosis secondary to acute kidney injury. Was also on metformin outpatient. Better. 6. Hypomagnesemia from poor intake. Replaced. Better. Plan: Maintain IV fluids for another day. Continue to monitor renal function and urine output. Avoid nephrotoxins. Encouraged oral intake.
[2024-04-18] MEDS: TRIAMCINOLONE 0.1% CREAM 80 GM TUBE TOPICAL SCH (13:11)
--- NOTE | 2024-04-18 16:39 | P.PN ---
Subjective Progress Note Date: 04/18/24 This is a 68-year-old female admitted with acute diverticulitis, acute renal failure, paroxysmal atrial fibrillation and multiple other medical issues. Reports 5 bowel movements since yesterday, had received MiraLAX. Continues on ceftriaxone and Flagyl. Declining Flagyl, requesting a different antibiotic, reporting it causing her increased nausea. Maintain on IV fluid hydration. Reports voiding, renal function improving, BUN 23.1, creatinine 2.6. 04/18/2024 significant clinical improvement. Maintained on IV fluid hydration. Tolerated diet advancement, no nausea vomiting. Diarrhea has decreased to 1 episode since last night. Minimal abdominal discomfort. renal function improved, BUN 18, creatinine 1.95. Afebrile. Denies chest pain, palpitations or shortness of breath, maintaining O2 sats in the mid to high 90s on room air. Denies chest pain, palpitations or shortness of breath. Objective - Vital Signs Vital signs: Vital Signs Temp 97.6 F 04/18/24 07:05 Pulse 66 04/18/24 07:05 Resp 16 04/18/24 07:05 BP 144/77 04/18/24 07:05 Pulse Ox 95 04/18/24 07:05 FiO2 Intake & Output 04/17/24 04/18/24 04/18/24 18:59 06:59 18:59 Intake Total 1200 Balance 1200 Intake: Intake, IV Titration 1200 Amount Lactated Ringers 1,000 ml 1200 @ 100 mls/hr IV .Q10H [facility] Rx#:[id number] Other: Voiding Method Toilet Toilet Bedside Commode # Voids 1 3 # Bowel Movements 1 - Exam GENERAL: A&OX3, sitting up in bed, NAD. HEENT: Normocephalic, atraumatic. Conjunctiva normal,MMM. CARDIOVASCULAR: S1 and S2 present. No murmurs, rubs, or gallops. PULMONARY: Unlabored, equal air entry,CTA. Bilateral bases diminished. ABDOMEN: Soft, nondistended, left lower quadrant tenderness, no guarding, no rigidity,+BS. EXTREMITIES: No cyanosis, clubbing, or pedal edema. NEUROLOGICAL: Cranial nerves II through XII grossly intact, no focal deficits. SKIN: Warm and dry, no rashes. - Labs CBC & Chem 7: 04/15/24 00:51 04/18/24 08:35 Labs: Abnormal Lab Results - Last 24 Hours (Table) 04/18/24 Range/Units 08:35 Chloride 112 H (98-107) mmol/L Carbon Dioxide 21 L (22-30) mmol/L BUN 18 H (7-17) mg/dL Creatinine 1.95 H (0.52-1.04) mg/dL Glucose 127 H (74-99) mg/dL Assessment and Plan Assessment: Abdominal pain, CT reporting possible mild diverticulitis Acute renal failure secondary to ATN Atrophic right kidney reported on CT, no hydronephrosis Metabolic acidosis secondary to the above, Peripheral vascular disease, status post aorta femoral bypass Morbid obesity, BMI 33 Paroxysmal atrial fibrillation Plan: Continue on current medication regimen ,monitoring and symptomatic treatment. Discharge planning in progress for today pending final DC recom mendations and clearance per nephrology. Advance diet further starting with breakfast today. Ambulate patient in hallway and have her sit up in chair, unless napping. The impression and plan of care has been dictated as directed. : I performed a history and examination of this patient, discussed the same with the dictator. I agree with the dictator's note ,documented as a scribe. Any additional findings or plans will be noted.
--- NOTE | 2024-04-18 17:07 | XR ---
EXAMINATION TYPE: XR chest 2V DATE OF EXAM: 04/18/2024 COMPARISON: None HISTORY: 68-year-old female with cough and congestion TECHNIQUE: Frontal and lateral views FINDINGS: Heart upper limits of normal size. Patchy bilateral lower lung opacities. Upper and mid lungs relativ daphnie clear. IMPRESSION: Patchy bibasilar opacities/infiltrates.
[2024-04-18] MEDS: HYDROcodone/APAP 7.5-325MG 1 EACH TAB PO PRN (21:47)
[2024-04-19 07:42] VITALS: BP 121/75; RESP 17; TEMP 97.4
[2024-04-19 10:53] LABS: BUN/Creat Ratio 7.42 Ratio (12.00-20.00); Blood Urea Nitrogen 14.1 mg/dL (9.0-27.0); Calcium 8.8 mg/dL (8.7-10.3); Carbon Dioxide 20.8 mmol/L (21.6-31.8); Chloride 106 mmol/L (96-109); Glucose 123 mg/dL (70-110); Potassium 3.9 mmol/L (3.5-5.5); Sodium 139 mmol/L (135-145)
[2024-04-19 10:59] VITALS: PULSE 78
[2024-04-19] MEDS ORDERED: DEXTROSE 50% SYRINGE 50 ML IVP PRN ×2 (11:24)
--- NOTE | 2024-04-19 11:45 | P.PN ---
Subjective Patient is seen in follow-up for acute kidney injury. Renal function improving. Receiving IV fluids. Tolerating oral intake. No vomiting. Vital signs are stable. General: No acute distress. HEENT: Head exam is unremarkable. LUNGS: No audible rhonchi or wheezes. HEART: Rate and Rhythm are regular. ABDOMEN: Mild generalized tenderness present. EXTREMITITES: No edema. Objective - Vital Signs Vital signs: Vital Signs Temp 97.4 F L 04/19/24 07:05 Pulse 78 04/19/24 08:00 Resp 17 04/19/24 08:00 BP 121/75 04/19/24 07:05 Pulse Ox 97 04/19/24 07:05 FiO2 Intake & Output 04/18/24 04/19/24 04/19/24 18:59 06:59 18:59 Other: Voiding Method Toilet Toilet # Voids 2 2 1 - Labs CBC & Chem 7: 04/15/24 00:51 04/19/24 07:40 Labs: Abnormal Lab Results - Last 24 Hours (Table) 04/19/24 Range/Units 07:40 Carbon Dioxide 20.8 L (21.6-31.8) mmol/L Anion Gap 12.20 H (4.00-12.00) mmol/L Creatinine 1.9 H (0.6-1.5) mg/dL Est GFR (CKD-EPI) 29 L (>=60) BUN/Creatinine Ratio 7.42 L (12.00-20.00) Ratio Glucose 123 H (70-110) mg/dL Assessment and Plan Plan: Assessment: 1. Acute kidney injury secondary to ATN. ABDIAZIZ inhibitor held. No hydronephrosis noted on CT. Patient has atrophic right kidney. UA fairly benign. Renal function improved. Creatinine stable at 1.9. Creatinine in November 2023 was noted to be 0.7. 2. Atrophic right kidney. Patient states she was first told of this when she was 21 years old. 3. Abdominal pain possibly from diverticulitis. On antibiotics. 4. Peripheral vascular disease status post aortofemoral bypass. 5. Metabolic acidosis secondary to acute kidney injury and IV fluids. Was also on metformin outpatient. 6. Hypomagnesemia from poor intake. Replaced. Better. Plan: Decrease rate of IV fluids to 50 cc an hour. Continue to monitor renal function and urine output. Avoid nephrotoxins. Encouraged oral intake. Follow-up outpatient 1 week postdischarge.
[2024-04-19] MEDS: INSULIN ASPART (NovoLOG) 100 UNIT/ML VIAL SQ SCH (12:58)
[2024-04-19] MEDS ORDERED: AMITRIPTYLINE HCL 10 MG TAB PO SCH (21:00)
--- NOTE | 2024-04-21 15:16 | P.DS ---
Providers Date of admission: 04/15/24 04:30 Expected date of discharge: 04/19/24 Attending physician: Giles Jane Consults: 04/15/24 04:29 Consult Physician Routine Consulting Provider: Raegan Giraldo Consult Reason/Comments: Acute kidney injury Do you want consulting provider notified?: Yes Primary care physician: Giles Jane [facility] Course: Final Diagnoses: Abdominal pain, CT reporting possible mild diverticulitis Acute renal failure secondary to ATN Atrophic right kidney reported on CT, no hydronephrosis Metabolic acidosis secondary to the above, Peripheral vascular disease, status post aorta femoral bypass Morbid obesity, BMI 33 Paroxysmal atrial fibrillation Hospital course:This is a 68-year-old female admitted with acute diverticulitis, acute renal failure, paroxysmal atrial fibrillation and multiple other medical issues. Reports 5 bowel movements since yesterday, had received MiraLAX. Continues on ceftriaxone and Flagyl. Declining Flagyl, requesting a different antibiotic, reporting it causing her increased nausea. Maintain on IV fluid hydration. Reports voiding, renal function improving, BUN 23.1, creatinine 2.6. 04/18/2024 significant clinical improvement. Maintained on IV fluid hydration. Tolerated diet advancement, no nausea vomiting. Diarrhea has decreased to 1 episode since last night. Minimal abdominal discomfort. renal function improved, BUN 18, creatinine 1.95. Afebrile. Denies chest pain, palpitations or shortness of breath, maintaining O2 sats in the mid to high 90s on room air. Denies chest pain, palpitations or shortness of breath. Discharge planning in progress for today pending final DC recommendations and clearance per nephrology. Advance diet further starting with breakfast today. Ambulate patient in hallway and have her sit up in chair, unless napping. Significant clinical improvement. Denies chest pain, palpitations or shortness of breath. Patient will be discharged home today in a stable condition with guarded prognosis pending final DC recommendations and clearance as per nephrology. The impression and plan of care has been dictated as directed. : I performed a history and examination of this patient, discussed the same with the dictator. I agree with the dictator's note ,documented as a scribe. Any additional findings or plans will be noted. Patient Condition at Discharge: Stable Plan - Discharge Summary Discharge Rx Participant: Yes New Discharge Prescriptions: New Ondansetron Odt [Zofran Odt] 4 mg PO Q8HR PRN #20 tab PRN Reason: Nausea metroNIDAZOLE [Flagyl] 500 mg PO TID #18 tab HYDROcodone/APAP 5-325MG [[place] 5-325] 1 tab PO Q6HR PRN 3 Days #12 tab PRN Reason: Pain Ciprofloxacin HCl [Cipro] 750 mg PO DAILY #7 tab polyethylene glycoL 3350 [Miralax] 17 gm PO DAILY packet Triamcinolone 0.1% Cream [Kenalog 0.1% Cream] 1 applic TOPICAL BID each Continue Simvastatin 20 mg PO HS Pantoprazole Sodium [Protonix] 40 mg PO DAILY tiZANidine [Zanaflex] 4 mg PO BID PRN PRN Reason: Pain Levothyroxine Sodium [Synthroid] 50 mcg PO HS Metoprolol Tartrate [Lopressor] 50 mg PO BID Amitriptyline HCl [Elavil] 10 mg PO HS Fluticasone Propion/Salmeterol [Fluticasone-Salmeterol 100-50] 1 puff INHALATION RT-BID Nystatin 100,000Unit/gm Cream [Mycostatin Cream] 1 applic TOPICAL BID PRN PRN Reason: Skin Irritation Apixaban [Eliquis] 5 mg PO BID metFORMIN HCL [metFORMIN HCL ER] 750 mg PO DAILY Discontinued lisinopriL [Zestril] 20 mg PO DAILY Ciprofloxacin HCl [Cipro] 500 mg PO BID Discharge Medication List Pantoprazole Sodium [Protonix] 40 mg PO DAILY 10/17/16 [History] Simvastatin 20 mg PO HS 10/17/16 [History] Levothyroxine Sodium [Synthroid] 50 mcg PO HS 12/26/20 [History] tiZANidine [Zanaflex] 4 mg PO BID PRN 12/26/20 [History] Amitriptyline HCl [Elavil] 10 mg PO HS 04/15/24 [History] Apixaban [Eliquis] 5 mg PO BID 04/15/24 [History] Fluticasone Propion/Salmeterol [Fluticasone-Salmeterol 100-50] 1 puff INHALATION RT-BID 04/15/24 [History] Metoprolol Tartrate [Lopressor] 50 mg PO BID 04/15/24 [History] Nystatin 100,000Unit/gm Cream [Mycostatin Cream] 1 applic TOPICAL BID PRN 04/15/24 [History] metFORMIN HCL [metFORMIN HCL ER] 750 mg PO DAILY 04/15/24 [History] Ciprofloxacin HCl [Cipro] 750 mg PO DAILY #7 tab 04/18/24 [Rx] Triamcinolone 0.1% Cream [Kenalog 0.1% Cream] 1 applic TOPICAL BID each 04/18/24 [Rx] polyethylene glycoL 3350 [Miralax] 17 gm PO DAILY packet 04/18/24 [Rx] HYDROcodone/APAP 5-325MG [[place] 5-325] 1 tab PO Q6HR PRN 3 Days #12 tab 04/19/24 [Rx] Ondansetron Odt [Zofran Odt] 4 mg PO Q8HR PRN #20 tab 04/19/24 [Rx] metroNIDAZOLE [Flagyl] 500 mg PO TID #18 tab 04/19/24 [Rx] Follow up Appointment(s)/Referral(s): Dr. Leif surgeon [Other] - 04/26/24 [facility], [NON-STAFF] - As Needed Giles Jane DO [Primary Care Provider] - 1 Week (after following up with SUrgeon) Patient Instructions/Handouts: Diverticulitis (DC), Acute Kidney Injury (DC) Activity/Diet/Wound Care/Special Instructions: low fiber diet IS q!h X 10 While awake ACTIVITY LIMITED UNTIL SEEN BY DR. Cuevas Disposition: HOME WITH HOME HEALTH SERVICES
== END 2024-04-19 16:49 | disposition home health service (06) | DRG 391 ==
LOC: EC 00:07 → 5NMEDONC 04:30
PROVIDERS: ADMIT Family Medicine; ATTEND Family Medicine
DX: K57.92 Diverticulitis of intestine, part unspecified, without perforation or abscess without bleeding (principal); N17.0 Acute kidney failure with tubular necrosis; E87.29 Other acidosis; N39.0 Urinary tract infection, site not specified; I48.0 Paroxysmal atrial fibrillation; I70.203 Unspecified atherosclerosis of native arteries of extremities, bilateral legs; E87.8 Other disorders of electrolyte and fluid balance, not elsewhere classified; I10 Essential (primary) hypertension; Z95.820 Peripheral vascular angioplasty status with implants and grafts; E83.42 Hypomagnesemia; G47.30 Sleep apnea, unspecified; K59.00 Constipation, unspecified; E78.5 Hyperlipidemia, unspecified; I25.10 Atherosclerotic heart disease of native coronary artery without angina pectoris; N26.1 Atrophy of kidney (terminal); K21.9 Gastro-esophageal reflux disease without esophagitis; Z79.01 Long term (current) use of anticoagulants; Z85.3 Personal history of malignant neoplasm of breast; Z95.1 Presence of aortocoronary bypass graft; Z87.891 Personal history of nicotine dependence; Z79.890 Hormone replacement therapy; Z79.899 Other long term (current) drug therapy; Z79.51 Long term (current) use of inhaled steroids; Z79.84 Long term (current) use of oral hypoglycemic drugs; Z91.041 Radiographic dye allergy status; Z91.048 Other nonmedicinal substance allergy status; Z88.0 Allergy status to penicillin; Z88.8 Allergy status to other drugs, medicaments and biological substances
CPT/HCPCS: 36415; 71046; 74176; 80048; 80053; 81003; 82150; 83690; 83735; 85025; 94640; 96361; 96365; 96375; 96376; 99285

== ENCOUNTER → 2024-04-24 | Outpatient (CLI) | payer MEDICARE, BC ==
--- NOTE | 2024-04-25 06:18 | PE ---
EXAMINATION TYPE: PET CT fusion skull to thigh DATE OF EXAM: 04/24/2024 COMPARISON: Most recent CT abdomen and pelvis April 15, 2024 and older CTs. HISTORY: Solitary pulmonary nodule, abnormal CT. TECHNIQUE: Following the intravenous administration of 8.87 mCi of F-18 FDG, whole body images are p erformed from the skull base to the midthigh. Images are reviewed on the computer in the coronal, ax ial, and sagittal planes. Reconstructed rotating images are created on independent workstation and r eviewed on the computer. A localization and attenuation correction CT is performed in conjunction w ith the PET scan. Blood glucose level equals 107 SCAN: Initial Scan FINDINGS: SKULL BASE AND NECK: No areas of abnormal hypermetabolic uptake. CHEST, MEDIASTINUM, AND HILAR REGION: Persistent 1.9 cm groundglass nodule in the superior aspect of the right lower lobe axial image 77 without abnormal hypermetabolic uptake. No areas of suspicious ab normal hypermetabolic uptake. New small to tiny left pleural effusion on current study. ABDOMEN AND PELVIS: No hypermetabolic adrenal masses. Normal excretion. No areas of suspicious hyperm etabolic uptake. OSSEOUS STRUCTURES: No areas of abnormal hypermetabolic uptake. OTHER CT: Surgical changes to the medial left breast redemonstrated. Right breast implant redemonstra barbi. Coronary artery calcification and cardiomegaly again seen. Tiny anterior-inferior pericardial ef fusion is seen. Surgical changes to the proximal colon redemonstrated. Aortoiliac graft is again seen. IMPRESSION: No suspicious hypermetabolic uptake to suggest malignancy. Stable near 2.0 cm right lung groundglass nodule. Follow-up CT in 3-6 months time is advised to reassess as per Fleischner Society recommendations.
== END | disposition home or self-care (01) ==
LOC: RADPETMAIN 13:42
PROVIDERS: ATTEND Internal Medicine Pulmonary Disease
DX: R91.1 Solitary pulmonary nodule (principal)
CPT/HCPCS: 78815; A9552

== ENCOUNTER → 2024-07-18 | Outpatient (CLI) | payer MEDICARE, BC ==
--- NOTE | 2024-07-22 10:33 | CT ---
EXAMINATION TYPE: CT chest wo con CT DLP: 659 mGycm, Automated exposure control for dose reduction was used. DATE OF EXAM: 07/18/2024 2:51 PM COMPARISON: 01/10/2024. CLINICAL INDICATION: Female, 69 years old with history of J98.4 OTHER DISORDERS OF THE LUNG; PHH, FOL LOW UP FOR LUNG NODULES. PRIORS IN PACS TECHNIQUE: Multiple axial images were obtained through the chest. Sagittal and coronal reformats were created for review. Contrast used: mL of (None if empty) Oral contrast used: (None if empty) FINDINGS: LUNGS/ PLEURA: Similar right upper lung part solid groundglass pulmonary nodule satellite nodule also similar compared to prior dating back to 01/10/2024. Mild paraseptal and centrilobular emphysema ny ges. Additional groundglass pulmonary nodule in the right lower lobe measuring 8 mm series 3 image 38 was faintly visible on 01/10/2024. Thought to be streaky atelectasis in the lingula. AIRWAY: Patent and unremarkable. HEART: Size within normal limits.Atherosclerosis of the arterial vasculature. MEDIASTINUM: No gross evidence of adenopathy. VASCULATURE: Atherosclerotic calcifications are present throughout the aorta and its branches. MUSCULOSKELETAL: No acute osseous abnormalities, mild pectus excavatum. SOFT TISSUES/LYMPH NODES: Right breast implant appears intact. LOWER NECK: No significant findings. UPPER ABDOMEN: No significant findings. IMPRESSION: 1. Stable right upper lobe parts of solid part groundglass pulmonary nodule. Right lower lobe ground glass pulmonary nodule is also grossly stable. Right breast implant appears intact. Continued surveil reagan with yearly low-dose lung cancer screening recommended. 2. mild pectus excavatum.
== END | disposition home or self-care (01) ==
LOC: RADCTMAIN 14:31
PROVIDERS: ATTEND Internal Medicine Hematology & Oncology
DX: J98.4 Other disorders of lung
CPT/HCPCS: 71250

== ENCOUNTER 2024-12-13 04:36 | Emergency (ER) | payer MEDICARE, BC ==
[2024-12-13] MEDS: SODIUM CHLORIDE 0.9% 1,000 ML IV STA (05:31)
[2024-12-13] MEDS: MORPHINE SULFATE 4 MG/ML SYRINGE IV STA ×2 (05:31→07:39)
--- NOTE | 2024-12-13 06:12 | CT ---
EXAMINATION TYPE: CT abdomen pelvis wo con DATE OF EXAM: 12/13/2024 5:46 AM COMPARISON: CT abdomen pelvis most recent from 04/15/2024, 04/24/2024, 07/18/2024 CLINICAL INDICATION: Female, 69 years old with history of abdominal pain, LLQ; Pt. c/o generalized ab dominal pain with intermittent nausea. TECHNIQUE: Axial CT abdomen pelvis wo con;Sagittal and coronal reformats were created on a separate workstation. Contrast used: mL of , (none if empty) Oral contrast used: without Oral Contrast (none if empty) CT DLP: mGycm, Automated exposure control for dose reduction was used. FINDINGS: LOWER CHEST: Right breast implant partially visualized. Streaky atelectasis in the lung bases. ABDOMEN LIVER: Unremarkable GALLBLADDER AND BILE DUCTS: The gallbladder appears surgically absent. PANCREAS: Unremarkable. SPLEEN: Unremarkable. ADRENAL GLANDS: Unremarkable. KIDNEYS AND URETERS: Atrophic right and hypertrophy left kidney. No evidence of hydronephrosis or soumya al calculus. The ureters are unremarkable. PELVIS BLADDER: No evidence for wall thickening or mass given limitations of exam. REPRODUCTIVE: The uterus is surgically absent. ABDOMEN & PELVIS STOMACH AND BOWEL: No evidence of bowel obstruction. Surgical changes of the colon. Scattered colonic diverticula. PERITONEUM/RETROPERITONEUM: No evidence of pneumoperitoneum or free fluid. VASCULATURE: Aortobiiliac stent graft severe atherosclerosis of the arterial vasculature. MUSCULOSKELETAL: No acute osseous abnormalities LYMPH NODES: No gross evidence for lymphadenopathy. SOFT TISSUE/ABDOMINAL WALL: Consultation for surgical clips in bilateral inguinal regions. Fat-contai darrell umbilical hernia. IMPRESSION: 1. No evidence for acute abdominal process. No evidence for enlarging mass or lymphadenopathy. 2. Postsurgical change the bowel without evidence for bowel obstruction. 3. Aortobiiliac repair changes of the aorta. Fat-containing umbilical hernia. 4. Atrophic right kidney with hypertrophied left kidney. 5. Colonic diverticulosis. [facility], , 12/13/2024 6:10 AM
[2024-12-13 07:09] LABS: ALT 16 U/L (4-34); AST 23 U/L (14-36); African American GFR (CKD) 76 (>60 ml/min/1.73 sqM); Albumin 4.1 g/dL (3.5-5.0); Alkaline Phosphatase 121 U/L (38-126); Amylase 74 U/L (30-110); Anion Gap 12 mmol/L; Blood Urea Nitrogen 13 mg/dL (7-17); Calcium 9.3 mg/dL (8.4-10.2); Carbon Dioxide 27 mmol/L (22-30); Chloride 96 mmol/L (98-107); Glucose 132 mg/dL (74-99); Lipase 256 U/L (23-300); Non-African American GFR(CKD) 66 (>60 ml/min/1.73 sqM); Potassium 4.2 mmol/L (3.5-5.1); Sodium 135 mmol/L (137-145); Total Bilirubin 1.9 mg/dL (0.2-1.3)
[2024-12-13 07:10] LABS: Basophils % (A) 0 %; Eosinophils # (A) 0.4 k/uL (0-0.7); Eosinophils % (A) 6 %; HCT 37.8 % (34.0-46.0); HGB 12.5 gm/dL (11.4-16.0); Lymphocytes # (A) 1.9 k/uL (1.0-4.8); Lymphocytes % (A) 27 %; MCH 28.1 pg (25.0-35.0); MCHC 33.2 g/dL (31.0-37.0); MCV 84.6 fL (80.0-100.0); Mean Platelet Volume 8.1; Monocytes # (A) 0.6 k/uL (0-1.0); Monocytes % (A) 9 %; Neutrophils # (A) 3.8 k/uL (1.3-7.7); Neutrophils % (A) 54 %; Platelet Count 286 k/uL (150-450); RBC 4.46 m/uL (3.80-5.40); RDW 15.5 % (11.5-15.5)
[2024-12-13] MEDS: ONDANSETRON 4 MG/2 ML VIAL IVP STA (07:37)
--- NOTE | 2024-12-13 07:37 | ED ---
Abdominal Pain HPI - General Source: patient Mode of arrival: wheelchair Limitations: no limitations - History of Present Illness MD Complaint: flank pain Onset/Timin -: days(s) Location: L flank Radiation: LLQ Migration to: no migration Severity: moderate Quality: aching Consistency: constant Improves With: nothing Worsens With: nothing Associated Symptoms: nausea, vomiting <Bravo Gastelum - Last Filed: 12/13/24 07:33> - General Source: patient, RN notes reviewed, old records reviewed Mode of arrival: wheelchair Limitations: no limitations <Justus Reese - Last Filed: 12/17/24 22:22> - General Chief Complaint: Abdominal Pain Stated Complaint: ABD Pain Time Seen by Provider: 12/13/24 05:06 - History of Present Illness Initial Comments: Patient is a 69-year-old woman who arrives to have evaluation of left flank and left lower quadrant pain. The patient states that the pain came on in the evening. Prior to that she states she just had felt unwell, mainly mild nausea. The patient states that after the flank and left lower quadrant pain started she also had 2 episodes of vomiting. No hematemesis or coffee-ground material. No change in bowel movements. Patient states that her urine may be darker than normal though she has been having less fluids. She has not noted fever or chills. (Bravo Gastelum) This is a 69-year-old female to the ER for evaluation of flank pain and suprapubic pain left lower quadrant pain (Justus Reese) - Related Data Home Medications Medication Instructions Recorded Confirmed Pantoprazole Sodium [Protonix] 40 mg PO DAILY 10/17/16 04/15/24 Simvastatin 20 mg PO HS 10/17/16 04/15/24 Levothyroxine Sodium [Synthroid] 50 mcg PO HS 12/26/20 04/15/24 tiZANidine [Zanaflex] 4 mg PO BID PRN 12/26/20 04/15/24 Amitriptyline HCl [Elavil] 10 mg PO HS 04/15/24 04/15/24 Apixaban [Eliquis] 5 mg PO BID 04/15/24 04/15/24 Fluticasone Propion/Salmeterol 1 puff INHALATION RT-BID 04/15/24 04/15/24 [Fluticasone-Salmeterol 100-50] Metoprolol Tartrate [Lopressor] 50 mg PO BID 04/15/24 04/15/24 Nystatin 100,000Unit/gm Cream 1 applic TOPICAL BID PRN 04/15/24 04/15/24 [Mycostatin Cream] metFORMIN HCL [metFORMIN HCL ER] 750 mg PO DAILY 04/15/24 04/15/24 Previous Rx's Medication Instructions Recorded Ciprofloxacin HCl [Cipro] 750 mg PO DAILY #7 tab 04/18/24 Triamcinolone 0.1% Cream [Kenalog 1 applic TOPICAL BID each 04/18/24 0.1% Cream] polyethylene glycoL 3350 [Miralax] 17 gm PO DAILY packet 04/18/24 HYDROcodone/APAP 5-325MG [Eitzen 1 tab PO Q6HR PRN 3 Days #12 tab 04/19/24 5-325] Ondansetron Odt [Zofran Odt] 4 mg PO Q8HR PRN #20 tab 04/19/24 metroNIDAZOLE [Flagyl] 500 mg PO TID #18 tab 04/19/24 Cephalexin [Keflex] 500 mg PO Q8HR #21 cap 12/13/24 Allergies Allergy/AdvReac Type Severity Reaction Status Date / Time adhesive tape Allergy Severe Skin Verified 04/15/24 08:39 Irritation, BLISTERED SKIN Iodinated Contrast Media Allergy Intermediate Rash/Hives Verified 04/15/24 08:39 [Iodinated Contrast Media - IV Dye] cellulose,oxidized Allergy Rash/Hives Verified 04/15/24 08:39 [From Surgicel] Penicillins AdvReac Severe Abdominal Verified 04/15/24 08:39 Pain, NAUSEA&VOMITING zolpidem [From Ambien] AdvReac Severe migraines Verified 04/15/24 08:39 tramadol AdvReac Hallucinati Verified 12/13/24 10:42 ons Review of Systems ROS Other: All systems not noted in ROS Statement are negative. Constitutional: Denies: fever, chills Respiratory: Denies: cough, dyspnea Cardiovascular: Denies: chest pain, palpitations, edema Gastrointestinal: Reports: abdominal pain, nausea, vomiting. Denies: diarrhea, constipation, melena, hematochezia Genitourinary: Denies: dysuria, frequency, hematuria Musculoskeletal: Denies: back pain Skin: Denies: rash Neurological: Denies: headache, weakness, numbness <OrianaBravo - Last Filed: 12/13/24 07:33> ROS Other: All systems not noted in ROS Statement are negative. <RoopaJustus herrera - Last Filed: 12/17/24 22:22> ROS Statement: Those systems with pertinent positive or pertinent negative responses have been documented in the HPI. Past Medical History Past Medical History: Atrial Fibrillation, Cancer, GERD/Reflux, Hyperlipidemia, Hypertension, Musculoskeletal Disorder, Sleep Apnea/CPAP/BIPAP Additional Past Medical History / Comment(s): Colon, Breast CA, Lumpectomy Lt Breast. RT kidney NON-FUNCTIONING. NO TX FOR SLEEP APNEA. Arthritis, low bone density, levar hip and leg pain History of Any Multi-Drug Resistant Organisms: None Reported Past Surgical History: Breast Surgery, Cholecystectomy, Coronary Bypass/CABG, Hysterectomy, Orthopedic Surgery Additional Past Surgical History / Comment(s): LT Lumpectomy with radiation Levar KNEE SCOPE. COLONOSCOPY, EGD. Jorje 05/14/2017, pain clinic procedures; colectomy Past Anesthesia/Blood Transfusion Reactions: Motion Sickness, Postoperative Nausea & Vomiting (PONV) Additional Past Anesthesia/Blood Transfusion Reaction / Comment(s): uses scopalamine patch for surgeries Past Psychological History: No Psychological Hx Reported Smoking Status: Former smoker Past Alcohol Use History: None Reported Past Drug Use History: None Reported - Past Family History Brother(s) Family Medical History: Cancer Sister(s) Family Medical History: Fibromyalgia Father Family Medical History: Coronary Artery Disease (CAD), CVA/TIA, Diabetes Mellitus Additional Family Medical History / Comment(s): congenital heart disease Daughter(s) Family Medical History: CVA/TIA, Diabetes Mellitus <OrianaBravo - Last Filed: 12/13/24 07:33> General Exam Limitations: no limitations General appearance: alert, in no apparent distress Head exam: Present: atraumatic, normocephalic Eye exam: Present: normal appearance. Absent: scleral icterus, conjunctival injection ENT exam: Present: mucous membranes dry Neck exam: Present: normal inspection Respiratory exam: Present: normal lung sounds bilaterally. Absent: respiratory distress, wheezes, rales, rhonchi, stridor, accessory muscle use Cardiovascular Exam: Present: regular rate, normal rhythm, normal heart sounds. Absent: systolic murmur, diastolic murmur, rubs, gallop GI/Abdominal exam: Present: soft, tenderness (Quadrant tenderness no rebound or guarding). Absent: distended, guarding, rebound, rigid, mass, pulsatile mass Extremities exam: Present: normal inspection, normal capillary refill. Absent: pedal edema, calf tenderness Back exam: Present: normal inspection. Absent: CVA tenderness (R), CVA tenderness (L) Neurological exam: Present: alert Skin exam: Present: warm, dry, intact, normal color. Absent: rash <NandomateusBravo - Last Filed: 12/13/24 07:33> General appearance: alert, in no apparent distress Head exam: Present: atraumatic, normocephalic, normal inspection Eye exam: Present: normal appearance, PERRL, EOMI. Absent: scleral icterus, conjunctival injection, periorbital swelling ENT exam: Present: normal exam, mucous membranes moist Neck exam: Present: normal inspection. Absent: tenderness, meningismus, lymphadenopathy Respiratory exam: Present: normal lung sounds bilaterally. Absent: respiratory distress, wheezes, rales, rhonchi, stridor Cardiovascular Exam: Present: regular rate, normal rhythm, normal heart sounds. Absent: systolic murmur, diastolic murmur, rubs, gallop, clicks GI/Abdominal exam: Present: soft, normal bowel sounds. Absent: distended, tenderness, guarding, rebound, rigid Extremities exam: Present: normal inspection, full ROM, normal capillary refill. Absent: tenderness, pedal edema, joint swelling, calf tenderness Back exam: Present: normal inspection Neurological exam: Present: alert, oriented X3, CN II-XII intact Psychiatric exam: Present: normal affect, normal mood Skin exam: Present: warm, dry, intact, normal color. Absent: rash <Justus Reese - Last Filed: 12/17/24 22:22> Course <Justus Reese - Last Filed: 12/17/24 22:22> Vital Signs 12/13/24 12/13/24 12/13/24 04:49 07:35 08:00 Temperature 97.8 F Pulse Rate 87 87 88 Respiratory 16 16 17 Rate Blood Pressure 101/70 119/59 114/62 O2 Sat by Pulse 100 94 L 90 L Oximetry 12/13/24 12/13/24 12/13/24 09:00 09:51 10:53 Temperature 98.3 F Pulse Rate 96 91 Respiratory 17 17 Rate Blood Pressure 120/52 106/53 O2 Sat by Pulse 91 L 94 L 95 Oximetry - Reevaluation(s) Reevaluation #1: Medical records reviewed (Justus Reese) Reevaluation #2: Patient symptoms improved (Justus Reese) Reevaluation #3: Patient informed of results and questions answered (Justus Reese) Medical Decision Making - Lab Data Result diagrams: 12/13/24 05:05 12/13/24 05:05 <Bravo Gastelum - Last Filed: 12/13/24 07:33> - Lab Data Result diagrams: 12/13/24 05:05 12/13/24 05:05 - Radiology Data Radiology results: report reviewed (CT abdomen pelvis negative for acute disease), image reviewed <Justus Reese - Last Filed: 12/17/24 22:22> - Medical Decision Making 69 female to ER for abdominal pain found to have urinary tract infection pain is controlled here in the ER patient feels well and can be discharged home (Justus Reese) - Lab Data Lab Results 12/13/24 12/13/24 12/13/24 Range/Units 05:05 05:05 05:10 WBC 7.0 (3.8-10.6) k/uL RBC 4.46 (3.80-5.40) m/uL Hgb 12.5 (11.4-16.0) gm/dL Hct 37.8 (34.0-46.0) % MCV 84.6 (80.0-100.0) fL MCH 28.1 (25.0-35.0) pg MCHC 33.2 (31.0-37.0) g/dL RDW 15.5 (11.5-15.5) % Plt Count 286 (150-450) k/uL MPV 8.1 Neutrophils % 54 % Lymphocytes % 27 % Monocytes % 9 % Eosinophils % 6 % Basophils % 0 % Neutrophils # 3.8 (1.3-7.7) k/uL Lymphocytes # 1.9 (1.0-4.8) k/uL Monocytes # 0.6 (0-1.0) k/uL Eosinophils # 0.4 (0-0.7) k/uL Basophils # 0.0 (0-0.2) k/uL Sodium 135 L (137-145) mmol/L Potassium 4.2 (3.5-5.1) mmol/L Chloride 96 L (98-107) mmol/L Carbon Dioxide 27 (22-30) mmol/L Anion Gap 12 mmol/L BUN 13 (7-17) mg/dL Creatinine 0.90 (0.52-1.04) mg/dL Est GFR (CKD-EPI)AfAm 76 (>60 ml/min/1.73 sqM) Est GFR (CKD-EPI)NonAf 66 (>60 ml/min/1.73 sqM) Glucose 132 H (74-99) mg/dL Plasma Lactic Acid George (0.7-2.0) mmol/L Calcium 9.3 (8.4-10.2) mg/dL Total Bilirubin 1.9 H (0.2-1.3) mg/dL AST 23 (14-36) U/L ALT 16 (4-34) U/L Alkaline Phosphatase 121 (38-126) U/L C-Reactive Protein 4.6 H (<1.0) mg/dL Total Protein 7.0 (6.3-8.2) g/dL Albumin 4.1 (3.5-5.0) g/dL Amylase 74 (30-110) U/L Lipase 256 (23-300) U/L Urine Color Yellow Urine Appearance Cloudy H (Clear) Urine pH 5.5 (5.0-8.0) Ur Specific [place] 1.022 (1.001-1.035) Urine Protein 1+ H (Negative) Urine Glucose (UA) Negative (Negative) Urine Ketones Negative (Negative) Urine Blood Negative (Negative) Urine Nitrite Negative (Negative) Urine Bilirubin Negative (Negative) Urine Urobilinogen 4.0 (<2.0) mg/dL Ur Leukocyte Esterase Large H (Negative) Urine WBC 12 H (0-5) /hpf Ur Squamous Epith Cells 2 (0-4) /hpf Urine Bacteria Rare H (None) /hpf Urine Mucus Rare H (None) /hpf 12/13/24 Range/Units 05:30 WBC (3.8-10.6) k/uL RBC (3.80-5.40) m/uL Hgb (11.4-16.0) gm/dL Hct (34.0-46.0) % MCV (80.0-100.0) fL MCH (25.0-35.0) pg MCHC (31.0-37.0) g/dL RDW (11.5-15.5) % Plt Count (150-450) k/uL MPV Neutrophils % % Lymphocytes % % Monocytes % % Eosinophils % % Basophils % % Neutrophils # (1.3-7.7) k/uL Lymphocytes # (1.0-4.8) k/uL Monocytes # (0-1.0) k/uL Eosinophils # (0-0.7) k/uL Basophils # (0-0.2) k/uL Sodium (137-145) mmol/L Potassium (3.5-5.1) mmol/L Chloride (98-107) mmol/L Carbon Dioxide (22-30) mmol/L Anion Gap mmol/L BUN (7-17) mg/dL Creatinine (0.52-1.04) mg/dL Est GFR (CKD-EPI)AfAm (>60 ml/min/1.73 sqM) Est GFR (CKD-EPI)NonAf (>60 ml/min/1.73 sqM) Glucose (74-99) mg/dL Plasma Lactic Acid George 2.0 (0.7-2.0) mmol/L Calcium (8.4-10.2) mg/dL Total Bilirubin (0.2-1.3) mg/dL AST (14-36) U/L ALT (4-34) U/L Alkaline Phosphatase (38-126) U/L C-Reactive Protein (<1.0) mg/dL Total Protein (6.3-8.2) g/dL Albumin (3.5-5.0) g/dL Amylase (30-110) U/L Lipase (23-300) U/L Urine Color Urine Appearance (Clear) Urine pH (5.0-8.0) Ur Specific [place] (1.001-1.035) Urine Protein (Negative) Urine Glucose (UA) (Negative) Urine Ketones (Negative) Urine Blood (Negative) Urine Nitrite (Negative) Urine Bilirubin (Negative) Urine Urobilinogen (<2.0) mg/dL Ur Leukocyte Esterase (Negative) Urine WBC (0-5) /hpf Ur Squamous Epith Cells (0-4) /hpf Urine Bacteria (None) /hpf Urine Mucus (None) /hpf Disposition <Bravo Gastelum - Last Filed: 12/13/24 07:33> Is patient prescribed a controlled substance at d/c from ED?: No Time of Disposition: 09:30 <Justus Reese - Last Filed: 12/17/24 22:22> Clinical Impression: Abdominal pain, UTI (urinary tract infection) Disposition: HOME SELF-CARE Condition: Good Instructions (If sedation given, give patient instructions): Urinary Tract Infection in Women (ED), Abdominal Pain (ED) Prescriptions: Cephalexin [Keflex] 500 mg PO Q8HR #21 cap Referrals: Giles Jane DO [Primary Care Provider] - 1-2 days
[2024-12-13 08:34] LABS: Appearance,Urine Cloudy (Clear); Bacteria,Urine Rare /hpf; Bilirubin,Urine Negative (Negative); Blood,Urine Negative (Negative); Color,Urine Yellow; Glucose,Urine (UA) Negative (Negative); Ketones,Urine Negative (Negative); Leukocyte Esterase,Urine Large (Negative); Mucus,Urine Rare /hpf; Nitrite,Urine Negative (Negative); PH, Urine 5.5 (5.0-8.0); Protein,Urine 1+ (Negative); Specific Gravity,Urine 1.022 (1.001-1.035); Squamous Epithelial Cell,Urine 2 /hpf (0-4); WBC,Urine 12 /hpf (0-5)
[2024-12-13 09:45] VITALS: RESP 17
[2024-12-13 10:23] LABS: C Reactive Protein 4.6 mg/dL (<1.0)
[2024-12-13] MEDS: cefTRIAXone IN SWFI 1,000 MG/10 ML SYRINGE IVP STA (10:41)
[2024-12-13] MEDS: traMADol 50 MG STARTER PACK 3 TAB BTL PO STA (10:44)
[2024-12-13] MEDS: CEPHALEXIN 500MG STARTER PACK 4 CAP BTL PO STA (10:44)
[2024-12-13] MEDS: ACET/COD 300 MG/30 MG STARTER PACK 6 TAB BTL PO STA (10:50)
[2024-12-13 10:56] VITALS: BP 106/53; PULSE 91; TEMP 98.3
== END 2024-12-13 11:06 | disposition home or self-care (01) ==
LOC: EC 04:36
DX: N39.0 Urinary tract infection, site not specified (principal); R10.32 Left lower quadrant pain; Z87.891 Personal history of nicotine dependence; Z91.041 Radiographic dye allergy status; Z88.5 Allergy status to narcotic agent; Z88.0 Allergy status to penicillin; Z88.8 Allergy status to other drugs, medicaments and biological substances
CPT/HCPCS: 36415; 80053; 82150; 83605; 83690; 85025; 86140; 81001; 74176; 99284; 96374; 96375 ×2; 96376; 96361 ×2; J2270; J2405; J0696

== ENCOUNTER 2025-01-05 21:12 | Emergency (ER) | payer MEDICARE, BC ==
[2025-01-05] MEDS: MORPHINE SULFATE 4 MG/ML SYRINGE IVP STA (22:31)
[2025-01-05] MEDS: ONDANSETRON 4 MG/2 ML VIAL IVP STA (22:33)
[2025-01-05] MEDS: diphenhydrAMINE 50 MG/ML 1 ML VIAL IVP STA (22:34)
[2025-01-05] MEDS: FAMOTIDINE 20 MG/2 ML VIAL IV STA (22:35)
[2025-01-05] MEDS: methylPREDNISolone SOD SUCCI 125 MG/2 ML VIAL IV ONE (22:37)
[2025-01-05] MEDS: SODIUM CHLORIDE 0.9% 500 ML 500 ML IV STA (22:37)
[2025-01-05 22:49] LABS: Basophils % (A) 0 %; Eosinophils # (A) 0.3 k/uL (0-0.7); Eosinophils % (A) 3 %; HCT 44.5 % (34.0-46.0); HGB 14.9 gm/dL (11.4-16.0); Lymphocytes # (A) 2.4 k/uL (1.0-4.8); Lymphocytes % (A) 30 %; MCH 28.2 pg (25.0-35.0); MCHC 33.4 g/dL (31.0-37.0); MCV 84.4 fL (80.0-100.0); Mean Platelet Volume 9.1; Monocytes # (A) 0.4 k/uL (0-1.0); Monocytes % (A) 6 %; Neutrophils # (A) 4.7 k/uL (1.3-7.7); Neutrophils % (A) 60 %; Platelet Count 169 k/uL (150-450); RBC 5.27 m/uL (3.80-5.40)
[2025-01-05 23:06] LABS: ALT 18 U/L (4-34); AST 28 U/L (14-36); African American GFR (CKD) 74 (>60 ml/min/1.73 sqM); Albumin 4.7 g/dL (3.5-5.0); Alkaline Phosphatase 102 U/L (38-126); Amylase 57 U/L (30-110); Anion Gap 16 mmol/L; Blood Urea Nitrogen 14 mg/dL (7-17); Calcium 9.8 mg/dL (8.4-10.2); Carbon Dioxide 18 mmol/L (22-30); Chloride 102 mmol/L (98-107); Glucose 105 mg/dL (74-99); Lipase 250 U/L (23-300); Non-African American GFR(CKD) 64 (>60 ml/min/1.73 sqM); Potassium 4.4 mmol/L (3.5-5.1); Sodium 136 mmol/L (137-145); Total Bilirubin 1.6 mg/dL (0.2-1.3); Total Protein 7.4 g/dL (6.3-8.2)
[2025-01-05 23:36] LABS: Influenza A Not Detected (Not Detectd); Influenza B Not Detected (Not Detectd); RSV Not Detected (Not Detectd)
--- NOTE | 2025-01-06 00:03 | CT ---
EXAM: CT Abdomen and Pelvis With Intravenous Contrast CLINICAL HISTORY: ITS.REASON CT Reason: abdominal pain TECHNIQUE: Axial computed tomography images of the abdomen and pelvis with intravenous contrast. CTDI is 26.4 mGy and DLP is 927.6 mGy-cm. This CT exam was performed using one or more of the following dose reduction techniques: automated exposure control, adjustment of the mA and/or kV according to patient size, and/or use of iterative reconstruction technique. COMPARISON: 12/13/2024. FINDINGS: Lung bases: Minimal subsegmental atelectasis noted at the lung bases. Heart: Heart is normal in size. ABDOMEN: Liver: The liver and the spleen enhance uniformly. Gallbladder and bile ducts: Unremarkable. No calcified stones. No ductal dilation. Pancreas: See below. Spleen: See above. Adrenals: The adrenal glands, the head, body, tail of the pancreas are unremarkable. Kidneys and ureters: Atrophic are right kidney. Lobulated contour of atrophic right kidney is noted. Simple right renal cysts are suggested. No left renal calculus or hydronephrosis. Stomach and bowel: Small to moderate quantity of ingested material in the stomach. The patient is status post right hemicolectomy. Diverticulosis. No bowel obstruction. PELVIS: Appendix: See above. Bladder: Unremarkable. No mass. Reproductive: The patient is status post hysterectomy. ABDOMEN and PELVIS: Intraperitoneal space: Unremarkable. No free air. No significant fluid collection. Bones/joints: No acute fracture. No dislocation. No spondylolysis. Soft tissues: Right breast prosthesis is noted in place and partially visualized. Vasculature: Portal vein is patent. Atherosclerotic disease of the abdominal aorta extending to the common iliac arteries. Postsurgical changes of the abdominal aorta. Flow is noted within the celiac, SMA, the renal arteries, and GORDY. No abdominal aortic aneurysm. Lymph nodes: Unremarkable. No retroperitoneal lymphadenopathy. IMPRESSION: 1. Aortbiiliac repair changes the abdominal aorta. 2. No gallstones. 3. Atrophic right kidney. 4. No hydronephrosis. 5. The patient is status post right hemicolectomy. 6. Limited evaluation of the: The distal content. 7. Diverticulosis without diverticulitis. 8. Status post hysterectomy.
[2025-01-06 00:20] LABS: Appearance,Urine Clear (Clear); Bacteria,Urine Rare /hpf; Bilirubin,Urine Negative (Negative); Blood,Urine Negative (Negative); Color,Urine Colorless; Glucose,Urine (UA) Negative (Negative); Granular Casts,Urine 4 /lpf (0); Hyaline Casts,Urine 13 /lpf (0-2); Ketones,Urine Trace (Negative); Leukocyte Esterase,Urine Trace (Negative); Mucus,Urine Rare /hpf; Nitrite,Urine Negative (Negative); Protein,Urine Negative (Negative); RBC,Urine 1 /hpf (0-5); Specific Gravity,Urine 1.023 (1.001-1.035); Squamous Epithelial Cell,Urine 1 /hpf (0-4); Urobilinogen,Urine <2.0 mg/dL (<2.0); WBC,Urine 2 /hpf (0-5)
--- NOTE | 2025-01-06 00:57 | ED ---
General Adult HPI - General Chief complaint: Nausea/Vomiting/Diarrhea Stated complaint: Abd/Back Pain Time Seen by Provider: 01/05/25 21:47 Source: patient Mode of arrival: ambulatory Limitations: no limitations - History of Present Illness Initial comments: 69-year-old female presenting with chief complaint of nausea vomiting diarrhea and abdominal pain. Patient reports that symptoms started earlier today. She states that her granddaughter is currently sick with similar symptoms and her symptoms started yesterday. States that it is a burning pain all throughout her abdomen, worse on the sides of her abdomen. No chest pain or difficulty breathing. No known fever. No dysuria or hematuria. No hematochezia or melena. No hematemesis. No URI-like symptoms. - Related Data Home Medications Medication Instructions Recorded Confirmed Pantoprazole Sodium [Protonix] 40 mg PO DAILY 10/17/16 04/15/24 Simvastatin 20 mg PO HS 10/17/16 04/15/24 Levothyroxine Sodium [Synthroid] 50 mcg PO HS 12/26/20 04/15/24 tiZANidine [Zanaflex] 4 mg PO BID PRN 12/26/20 04/15/24 Amitriptyline HCl [Elavil] 10 mg PO HS 04/15/24 04/15/24 Apixaban [Eliquis] 5 mg PO BID 04/15/24 04/15/24 Fluticasone Propion/Salmeterol 1 puff INHALATION RT-BID 04/15/24 04/15/24 [Fluticasone-Salmeterol 100-50] Metoprolol Tartrate [Lopressor] 50 mg PO BID 04/15/24 04/15/24 Nystatin 100,000Unit/gm Cream 1 applic TOPICAL BID PRN 04/15/24 04/15/24 [Mycostatin Cream] metFORMIN HCL [metFORMIN HCL ER] 750 mg PO DAILY 04/15/24 04/15/24 Previous Rx's Medication Instructions Recorded Ciprofloxacin HCl [Cipro] 750 mg PO DAILY #7 tab 04/18/24 Triamcinolone 0.1% Cream [Kenalog 1 applic TOPICAL BID each 04/18/24 0.1% Cream] polyethylene glycoL 3350 [Miralax] 17 gm PO DAILY packet 04/18/24 HYDROcodone/APAP 5-325MG [[place] 1 tab PO Q6HR PRN 3 Days #12 tab 04/19/24 5-325] Ondansetron Odt [Zofran Odt] 4 mg PO Q8HR PRN #20 tab 04/19/24 metroNIDAZOLE [Flagyl] 500 mg PO TID #18 tab 04/19/24 Cephalexin [Keflex] 500 mg PO Q8HR #21 cap 12/13/24 Ondansetron Odt [Zofran Odt] 4 mg PO Q8HR PRN #20 tab 01/06/25 Ondansetron Odt [Zofran Odt] 4 mg PO Q8HR PRN #20 tab 01/06/25 Allergies Allergy/AdvReac Type Severity Reaction Status Date / Time adhesive tape Allergy Severe Skin Verified 01/05/25 21:22 Irritation, BLISTERED SKIN Iodinated Contrast Media Allergy Intermediate Rash/Hives Verified 01/05/25 21:22 [Iodinated Contrast Media - IV Dye] cellulose,oxidized Allergy Rash/Hives Verified 01/05/25 21:22 [From Surgicel] Penicillins AdvReac Severe Abdominal Verified 01/05/25 21:22 Pain, NAUSEA&VOMITING zolpidem [From Ambien] AdvReac Severe migraines Verified 01/05/25 21:22 tramadol AdvReac Hallucinati Verified 01/05/25 21:22 ons Review of Systems ROS Statement: Those systems with pertinent positive or pertinent negative responses have been documented in the HPI. ROS Other: All systems not noted in ROS Statement are negative. Past Medical History Past Medical History: Atrial Fibrillation, Cancer, GERD/Reflux, Hyperlipidemia, Hypertension, Musculoskeletal Disorder, Sleep Apnea/CPAP/BIPAP Additional Past Medical History / Comment(s): Colon, Breast CA, Lumpectomy Lt Breast. RT kidney NON-FUNCTIONING. NO TX FOR SLEEP APNEA. Arthritis, low bone density, levar hip and leg pain History of Any Multi-Drug Resistant Organisms: None Reported Past Surgical History: Breast Surgery, Cholecystectomy, Coronary Bypass/CABG, Hysterectomy, Orthopedic Surgery Additional Past Surgical History / Comment(s): LT Lumpectomy with radiation Levar KNEE SCOPE. COLONOSCOPY, EGD. Jorje 05/14/2017, pain clinic procedures; colectomy Past Anesthesia/Blood Transfusion Reactions: Motion Sickness, Postoperative Nausea & Vomiting (PONV) Additional Past Anesthesia/Blood Transfusion Reaction / Comment(s): uses scop alamine patch for surgeries Past Psychological History: No Psychological Hx Reported Smoking Status: Former smoker Past Alcohol Use History: None Reported Past Drug Use History: None Reported - Past Family History Brother(s) Family Medical History: Cancer Sister(s) Family Medical History: Fibromyalgia Father Family Medical History: Coronary Artery Disease (CAD), CVA/TIA, Diabetes Mellitus Additional Family Medical History / Comment(s): congenital heart disease Daughter(s) Family Medical History: CVA/TIA, Diabetes Mellitus General Exam Limitations: no limitations General appearance: alert, in no apparent distress Head exam: Present: atraumatic, normocephalic, normal inspection Eye exam: Present: normal appearance, EOMI Neck exam: Present: normal inspection. Absent: meningismus Respiratory exam: Present: normal lung sounds bilaterally. Absent: respiratory distress, wheezes, rales, rhonchi, stridor Cardiovascular Exam: Present: regular rate, normal rhythm, normal heart sounds. Absent: systolic murmur, diastolic murmur, rubs, gallop, clicks GI/Abdominal exam: Present: soft, tenderness (Diffuse). Absent: distended, guarding, rebound, rigid Neurological exam: Present: alert, oriented X3 Psychiatric exam: Present: normal affect, normal mood Skin exam: Present: warm, dry, normal color Course Vital Signs 01/05/25 01/05/25 01/06/25 21:15 23:16 01:25 Temperature 97.3 F L 97.5 F L Pulse Rate 82 95 98 Respiratory 18 16 18 Rate Blood Pressure 179/100 148/71 152/66 O2 Sat by Pulse 100 94 L 95 Oximetry Medical Decision Making - Medical Decision Making Was pt. sent in by a medical professional or institution (, PA, COMPLIANCE REPRESENTATIVE, urgent care, hospital, or jail...) When possible be specific @ -No Did you speak to anyone other than the patient for history (EMS, parent, family, police, friend...)? What history was obtained from this source @ -No Did you review nursing and triage notes (agree or disagree)? Why? @ -I reviewed and agree with nursing and triage notes Were old charts reviewed (outside hosp., previous admission, EMS record, old EKG, old radiological studies, urgent care reports/EKG's, jail records)? Report findings @ -No old charts were reviewed Differential Diagnosis (chest pain, altered mental status, abdominal pain women, abdominal pain men, vaginal bleeding, weakness, fever, dyspnea, syncope, headache, dizziness, GI bleed, back pain, seizure, CVA, palpatations, mental health, musculoskeletal)? @ -MDM Differential Abdominal Pain Women: Appendicitis, Cholecystitis, diverticulosis, ischemic bowel, pancreatitis, hepatitis, UTI, gastroenteritis, AAA, incarcerated hernia, bowel obstruction, constipation, inflammatory bowel, hepatitis, peptic ulcer disease, splenic infarction, perforated viscus, vulvitis, ovarian torsion, PID, kidney stone, placenta abruption... This is not meant to be an all-inclusive list EKG interpreted by me (3pts min.). @ -EKG shows sinus rhythm ventricular rate 86. OK interval 178. QRS 88. QT 372. QTc 415. No ST deviation. X-rays interpreted by me (1pt min.). @ -None done CT interpreted by me (1pt min.). @ -CT shows aortobiiliac repair changes in the abdominal aorta. No gallstones. Atrophic right kidney. No hydronephrosis. The patient is status post right hemicolectomy. Diverticulosis without diverticulitis. Status post hysterectomy U/S interpreted by me (1pt. min.). @ -None done What testing was considered but not performed or refused? (CT, X-rays, U/S, labs)? Why? @ -None What meds were considered but not given or refused? Why? @ -None Did you discuss the management of the patient with other professionals (professionals i.e. , PA, COMPLIANCE REPRESENTATIVE, lab, RT, psych nurse, social media developer, boiler helper, teacher, assistant chief nursing officer, case loader operator)? Give summary @ -No Was smoking cessation discussed for >3mins.? @ -No Was critical care preformed (if so, how long)? @ -No Were there social determinants of health that impacted care today? How? (Homelessness, low income, unemployed, alcoholism, drug addiction, transpo rtation, low edu. Level, literacy, decrease access to med. care, care home, rehab)? @ -No Was there de-escalation of care discussed even if they declined (Discuss DNR or withdrawal of care, Hospice)? DNR status @ -No What co-morbidities impacted this encounter? (DM, HTN, Smoking, COPD, CAD, Cancer, CVA, ARF, Chemo, Hep., AIDS, mental health diagnosis, sleep apnea, morbid obesity)? @ -None Was patient admitted / discharged? Hospital course, mention meds given and route, prescriptions, significant lab abnormalities, going to OR and other pertinent info. @ -Patient presenting with chief complaint of nausea vomiting diarrhea and abdominal pain that started today. Her granddaughter sick with similar symptoms. History and physical examination are conducted. No leukocytosis or anemia. Urine is negative for infection. Is negative for influenza, RSV, COVID. Amylase and lipase are WNL. Negative troponin EKG shows sinus rhythm. Lactic acid 2.2 and bilirubin 1.6, patient is receiving IV fluids. CT shows no evidence of acute process. There is diverticulosis without diverticulitis. On reassessment the patient is resting showing no acute signs of distress. She is educated on today's findings and supportive management at home. Follow-up with PCP. Report back to ER with any new or worsening symptoms. Discussed return parameters and answered all questions. Patient conveyed verbal understanding and agreed to the plan. I discussed this case in detail with my attending Dr. Alas Undiagnosed new problem with uncertain prognosis? @ -No Drug Therapy requiring intensive monitoring for toxicity (Heparin, Nitro, Insulin, Cardizem)? @ -No Were any procedures done? @ -No Diagnosis/symptom? @ -Gastroenteritis Acute, or Chronic, or Acute on Chronic? @ -Acute Uncomplicated (without systemic symptoms) or Complicated (systemic symptoms)? @ -uncomplicated Side effects of treatment? @ -No Exacerbation, Progression, or Severe Exacerbation? @ -No Poses a threat to life or bodily function? How? (Chest pain, [place], [place], pneumonia, PE, COPD, DKA, ARF, appy, cholecystitis, CVA, Diverticulitis, Homicidal, Suicidal, threat to staff... and all critical care pts) @ -Low likelihood at this time - Lab Data Result diagrams: 01/05/25 22:01/05/25: Lab Results 01/05/25 01/05/25 01/05/25 Range/Units 22:29 22: 22: WBC 8.0 (3.8-10.6) k/uL RBC 5.27 (3.80-5.40) m/uL Hgb 14.9 (11.4-16.0) gm/dL Hct 44.5 (34.0-46.0) % MCV 84.4 (80.0-100.0) fL MCH 28.2 (25.0-35.0) pg MCHC 33.4 (31.0-37.0) g/dL RDW 15.0 (11.5-15.5) % Plt Count 169 (150-450) k/uL MPV 9.1 Neutrophils % 60 % Lymphocytes % 30 % Monocytes % 6 % Eosinophils % 3 % Basophils % 0 % Neutrophils # 4.7 (1.3-7.7) k/uL Lymphocytes # 2.4 (1.0-4.8) k/uL Monocytes # 0.4 (0-1.0) k/uL Eosinophils # 0.3 (0-0.7) k/uL Basophils # 0.0 (0-0.2) k/uL Sodium 136 L (137-145) mmol/L Potassium 4.4 (3.5-5.1) mmol/L Chloride 102 (98-107) mmol/L Carbon Dioxide 18 L (22-30) mmol/L Anion Gap 16 mmol/L BUN 14 (7-17) mg/dL Creatinine 0.93 (0.52-1.04) mg/dL Est GFR (CKD-EPI)AfAm 74 (>60 ml/min/1.73 sqM) Est GFR (CKD-EPI)NonAf 64 (>60 ml/min/1.73 sqM) Glucose 105 H (74-99) mg/dL Lactic Ac Sepsis Rflx Plasma Lactic Acid [place] 2.2 H* (0.7-2.0) mmol/L Calcium 9.8 (8.4-10.2) mg/dL Total Bilirubin 1.6 H (0.2-1.3) mg/dL AST 28 (14-36) U/L ALT 18 (4-34) U/L Alkaline Phosphatase 102 (38-126) U/L Troponin I (0.000-0.034) ng/mL Total Protein 7.4 (6.3-8.2) g/dL Albumin 4.7 (3.5-5.0) g/dL Amylase 57 (30-110) U/L Lipase 250 (23-300) U/L Urine Color Urine Appearance (Clear) Urine pH (5.0-8.0) Ur Specific [place] (1.001-1.035) Urine Protein (Negative) Urine Glucose (UA) (Negative) Urine Ketones (Negative) Urine Blood (Negative) Urine Nitrite (Negative) Urine Bilirubin (Negative) Urine Urobilinogen (<2.0) mg/dL Ur Leukocyte Esterase (Negative) Urine RBC (0-5) /hpf Urine WBC (0-5) /hpf Ur Squamous Epith Cells (0-4) /hpf Urine Bacteria (None) /hpf Hyaline Casts (0-2) /lpf Granular Casts (0) /lpf Urine Mucus (None) /hpf Influenza Type A (PCR) (Not Detectd) Influenza Type B (PCR) (Not Detectd) RSV (PCR) (Not Detectd) SARS-CoV-2 (PCR) (Not Detectd) 01/05/25 01/05/25 01/05/25 Range/Units 22:29 22:29 23:53 WBC (3.8-10.6) k/uL RBC (3.80-5.40) m/uL Hgb (11.4-16.0) gm/dL Hct (34.0-46.0) % MCV (80.0-100.0) fL MCH (25.0-35.0) pg MCHC (31.0-37.0) g/dL RDW (11.5-15.5) % Plt Count (150-450) k/uL MPV Neutrophils % % Lymphocytes % % Monocytes % % Eosinophils % % Basophils % % Neutrophils # (1.3-7.7) k/uL Lymphocytes # (1.0-4.8) k/uL Monocytes # (0-1.0) k/uL Eosinophils # (0-0.7) k/uL Basophils # (0-0.2) k/uL Sodium (137-145) mmol/L Potassium (3.5-5.1) mmol/L Chloride (98-107) mmol/L Carbon Dioxide (22-30) mmol/L Anion Gap mmol/L BUN (7-17) mg/dL Creatinine (0.52-1.04) mg/dL Est GFR (CKD-EPI)AfAm (>60 ml/min/1.73 sqM) Est GFR (CKD-EPI)NonAf (>60 ml/min/1.73 sqM) Glucose (74-99) mg/dL Lactic Ac Sepsis Rflx Y Plasma Lactic Acid [place] (0.7-2.0) mmol/L Calcium (8.4-10.2) mg/dL Total Bilirubin (0.2-1.3) mg/dL AST (14-36) U/L ALT (4-34) U/L Alkaline Phosphatase (38-126) U/L Troponin I <0.012 (0.000-0.034) ng/mL Total Protein (6.3-8.2) g/dL Albumin (3.5-5.0) g/dL Amylase (30-110) U/L Lipase (23-300) U/L Urine Color Urine Appearance (Clear) Urine pH (5.0-8.0) Ur Specific [place] (1.001-1.035) Urine Protein (Negative) Urine Glucose (UA) (Negative) Urine Ketones (Negative) Urine Blood (Negative) Urine Nitrite (Negative) Urine Bilirubin (Negative) Urine Urobilinogen (<2.0) mg/dL Ur Leukocyte Esterase (Negative) Urine RBC (0-5) /hpf Urine WBC (0-5) /hpf Ur Squamous Epith Cells (0-4) /hpf Urine Bacteria (None) /hpf Hyaline Casts (0-2) /lpf Granular Casts (0) /lpf Urine Mucus (None) /hpf Influenza Type A (PCR) Not Detected (Not Detectd) Influenza Type B (PCR) Not Detected (Not Detectd) RSV (PCR) Not Detected (Not Detectd) SARS-CoV-2 (PCR) Not Detected (Not Detectd) 01/06/25 Range/Units 00:08 WBC (3.8-10.6) k/uL RBC (3.80-5.40) m/uL Hgb (11.4-16.0) gm/dL Hct (34.0-46.0) % MCV (80.0-100.0) fL MCH (25.0-35.0) pg MCHC (31.0-37.0) g/dL RDW (11.5-15.5) % Plt Count (150-450) k/uL MPV Neutrophils % % Lymphocytes % % Monocytes % % Eosinophils % % Basophils % % Neutrophils # (1.3-7.7) k/uL Lymphocytes # (1.0-4.8) k/uL Monocytes # (0-1.0) k/uL Eosinophils # (0-0.7) k/uL Basophils # (0-0.2) k/uL Sodium (137-145) mmol/L Potassium (3.5-5.1) mmol/L Chloride (98-107) mmol/L Carbon Dioxide (22-30) mmol/L Anion Gap mmol/L BUN (7-17) mg/dL Creatinine (0.52-1.04) mg/dL Est GFR (CKD-EPI)AfAm (>60 ml/min/1.73 sqM) Est GFR (CKD-EPI)NonAf (>60 ml/min/1.73 sqM) Glucose (74-99) mg/dL Lactic Ac Sepsis Rflx Plasma Lactic Acid [place] (0.7-2.0) mmol/L Calcium (8.4-10.2) mg/dL Total Bilirubin (0.2-1.3) mg/dL AST (14-36) U/L ALT (4-34) U/L Alkaline Phosphatase (38-126) U/L Troponin I (0.000-0.034) ng/mL Total Protein (6.3-8.2) g/dL Albumin (3.5-5.0) g/dL Amylase (30-110) U/L Lipase (23-300) U/L Urine Color Colorless Urine Appearance Clear (Clear) Urine pH 5.0 (5.0-8.0) Ur Specific [place] 1.023 (1.001-1.035) Urine Protein Negative (Negative) Urine Glucose (UA) Negative (Negative) Urine Ketones Trace H (Negative) Urine Blood Negative (Negative) Urine Nitrite Negative (Negative) Urine Bilirubin Negative (Negative) Urine Urobilinogen <2.0 (<2.0) mg/dL Ur Leukocyte Esterase Trace H (Negative) Urine RBC 1 (0-5) /hpf Urine WBC 2 (0-5) /hpf Ur Squamous Epith Cells 1 (0-4) /hpf Urine Bacteria Rare H (None) /hpf Hyaline Casts 13 H (0-2) /lpf Granular Casts 4 (0) /lpf Urine Mucus Rare H (None) /hpf Influenza Type A (PCR) (Not Detectd) Influenza Type B (PCR) (Not Detectd) RSV (PCR) (Not Detectd) SARS-CoV-2 (PCR) (Not Detectd) Disposition Clinical Impression: Gastroenteritis Disposition: HOME SELF-CARE Condition: Good Instructions (If sedation given, give patient instructions): Gastroenteritis (ED) Additional Instructions: Follow-up with PCP. Report back to ER with any new or worsening symptoms. Prescriptions: Ondansetron Odt [Zofran Odt] 4 mg PO Q8HR PRN #20 tab PRN Reason: Nausea Ondansetron Odt [Zofran Odt] 4 mg PO Q8HR PRN #20 tab PRN Reason: Nausea Is patient prescribed a controlled substance at d/c from ED?: No Referrals: Giles Jane DO [Primary Care Provider] - 1-2 days Time of Disposition: 00:57
[2025-01-06] MEDS: HYDROmorphone 0.5 MG/0.5 ML SYRINGE IVP STA (01:19)
[2025-01-06 01:35] VITALS: BP 152/66; PULSE 98; RESP 18; TEMP 97.5
== END 2025-01-06 01:25 | disposition home or self-care (01) ==
LOC: EC 21:12
DX: K52.9 Noninfective gastroenteritis and colitis, unspecified (principal); Z87.891 Personal history of nicotine dependence; Z88.0 Allergy status to penicillin; Z88.5 Allergy status to narcotic agent; Z91.09 Other allergy status, other than to drugs and biological substances; Z91.041 Radiographic dye allergy status; Z88.8 Allergy status to other drugs, medicaments and biological substances
CPT/HCPCS: 36415; 93005; 80053; 82150; 83605; 83690; 84484; 85025; 81001; 87636; 74177; 99284; 96374; 96375 ×2; 96361; J2270; J1200; J2405; J3490; J1171; Q9967; J2919